=== PATIENT | male | born 1950 | race Two or more races ===

== ENCOUNTER 2018-08-25 15:33 | Inpatient (IN) | payer MEDICARE, MEDICAID ==
[~2018-08-25] VITALS: Ht 167.6 cm; Wt 54.0 kg
--- NOTE | 2018-08-25 23:40 | NUR ---
NURSE NOTES: Patient direct admit from [facility]. No s/s of distress noted. Alert and awake with confused. Skin is intact. Belongings are checked. Bed in lowest position. Call light within reach. Will continue to monitor.
[2018-08-26] VITALS: BP 126/66
--- NOTE | 2018-08-26 00:36 | NUR ---
NURSE NOTES: Call and paged Dr. Gonzales for new admit order. Waiting a call back.
--- NOTE | 2018-08-26 01:25 | NUR ---
NURSE NOTES: Call and paged Dr. Gonzales for new admit order. Waiting a call back.
--- NOTE | 2018-08-26 02:04 | NUR ---
NURSE NOTES: Call and paged Dr. Gonzales for new admit order. Waiting a call back.
[2018-08-26] MEDS ORDERED: FLEET ENEMA133 M1 RC (03:10)
[2018-08-26] MEDS ORDERED: MELATONIN5 M5 ORAL (03:10)
[2018-08-26] MEDS ORDERED: ACETAMINOPHEN325 M1 ORAL (03:10)
[2018-08-26] MEDS ORDERED: CALCIUM 500 +1 EAC6 PO (03:10)
[2018-08-26] MEDS ORDERED: MILK OF MA400 MG/51 ORAL (03:10)
[2018-08-26] MEDS ORDERED: MOM30 ML ORAL (03:10)
[2018-08-26] MEDS ORDERED: CLARITIN10 M2 ORAL (03:10)
[2018-08-26] MEDS ORDERED: MULTIVITAMINS1 EAC2 ORAL (03:10)
[2018-08-26] MEDS ORDERED: ATORVASTATIN CA10 MG ORAL (03:10)
[2018-08-26] MEDS ORDERED: DULCOLAX10 MG RC (03:10)
[2018-08-26] MEDS ORDERED: CALCITRIOL0.25 MCG PO (03:10)
[2018-08-26] MEDS ORDERED: ASPIRIN-LOW81 MG ORAL (03:10)
[2018-08-26 04:00] VITALS: BP 137/73
--- NOTE | 2018-08-26 05:54 | NUR ---
NURSE NOTES: Call and paged Dr. Gonzales for new admit order. Waiting a call back.
--- NOTE | 2018-08-26 06:36 | NUR ---
NURSE NOTES: Call and paged Dr. Gonzales for new admit order. Waiting a call back.
--- NOTE | 2018-08-26 07:00 | NUR ---
NURSE NOTES: Call and paged Dr. Gonzales for new admit order. Waiting a call back.
--- NOTE | 2018-08-26 07:30 | NUR ---
HAND-OFF: Report given to Douglas Ford.
--- NOTE | 2018-08-26 07:45 | NUR ---
NURSE NOTES: Patient on bed awake. IV site intact and patent. Bed in low and locked position, call light within reach. No signs of respiratory distress or pain. Room board updated, will continue to monitor.
[2018-08-26 08:00] VITALS: BP 153/79
[2018-08-26] MEDS ORDERED: Fleet's Enema 133ml RECTAL PRN (08:15)
[2018-08-26] MEDS ORDERED: Milk of Magnesia 30ml Ud ORAL PRN (08:15)
[2018-08-26 08:28] LABS: BASOPHILS % (AUTO) 0.8 % (0.0-2.0); EOSINOPHILS % (AUTO) 3.2 % (0.0-3.0); HEMATOCRIT 37.9 % (42.0-52.0); HEMOGLOBIN 12.3 G/DL (14.2-18.0); LYMPHOCYTES % (AUTO) 28.2 % (20.0-45.0); MEAN CORPUSCULAR VOLUME 86 FL (80-99); MONOCYTES % (AUTO) 9.9 % (1.0-10.0); NEUTROPHILS % (AUTO) 57.9 % (45.0-75.0); PLATELET COUNT 199 K/UL (150-450); RED BLOOD COUNT 4.38 M/UL (4.70-6.10); RED CELL DISTRIBUTION WIDTH 13.1 % (11.6-14.8); WHITE BLOOD COUNT 4.6 K/UL (4.8-10.8)
[2018-08-26] MEDS: D5 1/2NS 1,000 ML IV SCH ×2 (08:33→20:25)
[2018-08-26 08:37] LABS: ANION GAP 8 mmol/L (5-15); BLOOD UREA NITROGEN 16 mg/dL (7-18); CALCIUM 7.6 MG/DL (8.5-10.1); CARBON DIOXIDE 31 MMOL/L (21-32); CHLORIDE 101 MMOL/L (98-107); POTASSIUM 3.7 MMOL/L (3.5-5.1); SODIUM 140 MMOL/L (136-145)
[2018-08-26 08:41] LABS: ALANINE AMINOTRANSFERASE 21 U/L (12-78); ALBUMIN 3.8 G/DL (3.4-5.0); ALBUMIN/GLOBULIN RATIO 1.1 (1.0-2.7); ALKALINE PHOSPHATASE 66 U/L (46-116); ASPARTATE AMINO TRANSFERASE 23 U/L (15-37); BILIRUBIN,TOTAL 0.6 MG/DL (0.2-1.0)
[2018-08-26] MEDS: cefTRIAXone 1 GM in D5W 55 ML IVPB SCH (08:54)
[2018-08-26] MEDS: Calcitriol 0.25mcg Cap ORAL SCH (08:54)
[2018-08-26] MEDS: Aspirin EC 81mg tab ORAL SCH (08:54)
[2018-08-26] MEDS: Calcium Carbonate 500mg w/Vit D 200iu tab ORAL SCH ×3 (08:54→18:27)
[2018-08-26] MEDS: Heparin 5000 units/ml inj SUBQ SCH ×2 (08:55→20:27)
--- NOTE | 2018-08-26 10:29 | NUR ---
RADIOLOGY DEPT CHEST X-RAY DONE.-P.DYE
[2018-08-26 12:00] VITALS: BP 124/67
--- NOTE | 2018-08-26 13:00 | NUR ---
NURSE NOTES: Condom catheter placed on patient. Charge nurse aware.
[2018-08-26 14:31] LABS: BILIRUBIN, URINE NEGATIVE (NEGATIVE); COLOR,URINE PALE YELLOW; GLUCOSE, URINE (UA) NEGATIVE (NEGATIVE); KETONES,URINE NEGATIVE (NEGATIVE); LEUKOCYTE ESTERASE ,URINE 1+ (NEGATIVE); NITRITE,URINE NEGATIVE (NEGATIVE); PH,URINE 8 (4.5-8.0); PROTEIN,URINE NEGATIVE (NEGATIVE); UROBILINOGEN,URINE NORMAL MG/DL (0.0-1.0)
[2018-08-26 14:35] LABS: APPEARANCE,URINE SLIGHTLY CLOUDY
[2018-08-26 16:00] VITALS: BP 153/72
--- NOTE | 2018-08-26 16:15 | History and Physical Report ---
DATE OF ADMISSION: 08/25/2018 HISTORY OF PRESENT ILLNESS: This is an elderly male, who came to the emergency room for altered mental status. He is mild short of breath and generalized weakness. The patient is slightly confused, also was found to have elevated ammonia level. PAST MEDICAL HISTORY: Significant for history of coronary artery disease, hypertension, and hyperlipidemia. MEDICATIONS: See the list. ALLERGIES: NKA. FAMILY HISTORY: Noncontributory. SOCIAL HISTORY: The patient lives at a snf, confused but he is able to move. PHYSICAL EXAMINATION: VITAL SIGNS: Blood pressure is 137/73, pulse 63, respirations 19, and temperature 98.2. HEENT: NAD. CHEST: Bilaterally clear. CARDIOVASCULAR: Regular rhythm. No gallop. No murmur. ABDOMEN: Soft. Positive bowel sounds. Nontender. EXTREMITIES: No CCE. NEUROLOGICAL: Confused, generalized weakness. GENITOURINARY: Deferred. LABORATORY DATA: White count 4.6, hemoglobin 12, and hematocrit 39. Platelets are normal. Chemistry panel, glucose 112. Sodium 140, potassium 3.7, BUN 16, and creatinine . ASSESSMENT: 1. Altered mental status. 2. Hepatic encephalopathy. 3. Dementia. 4. Urinary incontinency, possible urinary tract infection. PLAN: 1. We will check UA with culture. 2. We will check ammonia level. 3. Continue IV fluid. 4. Continue current home medications and discussed with the charge nurse. 5. Consider also GI consult. Sandeep Gonzales M.D. DR: DANIAL JOB#: [id number] CC:
--- NOTE | 2018-08-26 16:46 | NUR ---
CASE MANAGEMENT:REVIEW DIRECT ADMIT FROM [facility] CC: AMS SI: HEPATIC ENCEPHALOPATHY 98.1 62 17 126/66 97% ON RA AMMONIA+39 IS: LIPITOR PO QHS HEPARIN SQ Q12 IV ROCEPHIN Q24 ASA PO QD CALCITROL PO QD KARTIK CARBONATE PO QD MVI PO QD IVF@75/HR : MED/SURG STATUS 4 EAST
--- NOTE | 2018-08-26 17:00 | NUR ---
NURSE NOTES: Patient removed IV and attempted to get out of bed. Patient placed back in bed, will attempt to start new IV site.
[2018-08-26] MEDS ORDERED: DiphenhydrAMINE 50mg/ml Inj IM SCH (17:19)
[2018-08-26] MEDS ORDERED: LORazepam Inj 2mg/ml 1ml IM SCH (17:30)
[2018-08-26] MEDS ORDERED: Haloperidol 5mg/ml Inj IM SCH (17:30)
--- NOTE | 2018-08-26 17:30 | Diagnostic Imaging Report ---
Indication: Cough Technique: One view of the chest Comparison: none Findings: Metallic foreign body projects over the upper mediastinum. The lungs and pleural spaces are clear. The heart size is normal. Impression: No acute process Metallic foreign body projecting over the upper mediastinum. Uncertain as to whether postsurgical in nature versus outside the body
--- NOTE | 2018-08-26 18:55 | General Progress Note ---
Assessment/Plan Assessment/Plan Assessment - Patient with dysarthria and apparent movement disorder - pattern of neurologic symptoms not suggestive of hepatic encephalopathy - mild elevation in ammonia non-specific Recommendations - Would ask neurology to evaluate - check swallow study - follow exam and mental status Thank you Nataly Francois MD Subjective Allergies: Coded Allergies: No Known Allergies (Unverified , 08/26/18) Objective Last 24 Hour Vital Signs Date Time Temp Pulse Resp B/P (MAP) Pulse Ox O2 Delivery O2 Flow Rate FiO2 08/26/18 16:00 97.7 64 18 153/72 (99) 96 08/26/18 12:00 98.4 57 18 124/67 (86) 96 08/26/18 09:00 Room Air 08/26/18 08:00 98.0 63 18 153/79 (103) 96 08/26/18 04:00 98.2 63 19 137/73 (94) 98 08/26/18 01:36 Room Air 08/26/18 00:00 98.1 62 17 126/66 (86) 97 Intake and Output 08/25/18 08/26/18 18:59 06:59 # Voids 2 Laboratory Tests 08/26/18 08:15: White Blood Count 4.6L, Red Blood Count 4.38L, Hemoglobin 12.3L, Hematocrit 37.9L, Mean Corpuscular Volume 86, Mean Corpuscular Hemoglobin 28.1, Mean Corpuscular Hemoglobin Concent 32.5, Red Cell Distribution Width 13.1, Platelet Count 199, Mean Platelet Volume 8.2, Neutrophils (%) (Auto) 57.9, Lymphocytes (% ) (Auto) 28.2, Monocytes (%) (Auto) 9.9, Eosinophils (%) (Auto) 3.2H, Basophils (%) (Auto) 0.8, Sodium Level 140, Potassium Level 3.7, Chloride Level 101, Carbon Dioxide Level 31, Anion Gap 8, Blood Urea Nitrogen 16, Creatinine 1.0, Estimat Glomerular Filtration Rate > 60, Glucose Level 112H, Calcium Level 7.6L , Total Bilirubin 0.6, Aspartate Amino Transf (AST/SGOT) 23, Alanine Aminotransferase (ALT/SGPT) 21, Alkaline Phosphatase 66, Total Protein 7.4, Albumin 3.8, Globulin 3.6, Albumin/Globulin Ratio 1.1 08/26/18 11:00: Ammonia 39H 08/26/18 13:30: Urine Color Pale yellow, Urine Appearance Slightly cloudy, Urine pH 8, Urine Specific [place] 1.010, Urine Protein Negative, Urine Glucose (UA) Negative, Urine Ketones Negative, Urine Blood 5+H, Urine Nitrite Negative, Urine Bilirubin Negative, Urine Urobilinogen Normal, Urine Leukocyte Esterase 1+H, Urine RBC 40-60H, Urine WBC 0-2, Urine Squamous Epithelial Cells Occasional, Urine Bacteria Occasional Height (Feet): 5 Height (Inches): 6.00 Weight (Pounds): 119 Genesis Francois MD Aug 26, 2018 18:55
--- NOTE | 2018-08-26 19:35 | NUR ---
HAND-OFF: Report given to KAMLA Lott.
--- NOTE | 2018-08-26 19:55 | NUR ---
NURSE NOTES: Patient in bed asleep, no s/s distress noted. Bed in lowest position for safety. Call light within reach.
[2018-08-26 20:00] VITALS: BP 142/76
--- NOTE | 2018-08-26 21:44 | Consultation ---
History of Present Illness Present Illness HPI 67 yo old male, with hx of mmp who came to the emergency room for altered mental status. He came in with shortness of breath and generalized weakness. The patient was confused confused and agitated the pt pulled out his IV access and came out of the bed. the pt was agitated and yelling that he wanted to leave. The pt was confused and received a cocktail shot. The pt has high ammonia level and is unable to provide any hx. Allergies: Coded Allergies: No Known Allergies (Unverified , 08/26/18) Medication History Scheduled Aspirin (Aspirin EC), 81 MG ORAL DAILY, (Reported) Atorvastatin Calcium* (Lipitor*), 10 MG ORAL BEDTIME, (Reported) Calcitriol (Calcitriol), 0.25 MCG PO DAILY, (Reported) Calcium Carbonate/Vitamin D3 (Calcium 500 + Vit D 200 Caplet), 1 EACH PO THREE TIMES A DAY, (Reported) Loratadine (Claritin), 10 MG ORAL Q6HR, (Reported) Magnesium Hydroxide (Milk of Magnesia), 30 ML ORAL DAILY, (Reported) Magnesium Hydroxide* (Milk Of Magnesia*), 30 ML ORAL DAILY, (Reported) Multivitamins* (Multivitamins*), 1 TAB ORAL DAILY, (Reported) Scheduled PRN Acetaminophen* (Acetaminophen 325MG Tablet*), 650 MG ORAL Q4H PRN for Mild Pain/ Temp > 100.5, (Reported) Melatonin (Melatonin), 5 MG ORAL BEDTIME PRN for Insomnia, (Reported) Miscellaneous Medications Bisacodyl (Dulcolax), 10 MG RC, (Reported) Na Phos,M-B/Na Phos,Di-Ba (Fleet Enema), 133 ML RC, (Reported) Patient History Limited by: medical condition History Provided By: Patient, Medical Record, PMD Healthcare decision maker Anel Salazar(sister) [phone] Resuscitation status Do Not Resuscitate Advanced Directive on File No Past Medical/Surgical History Past Medical/Surgical History: (1) Increased ammonia level Review of Systems Psychiatric: Reports: anxiety, depressed feelings, emotional problems, hallucinations Physical Exam General Appearance: alert, confused, agitated Last 24 Hour Vital Signs Date Time Temp Pulse Resp B/P (MAP) Pulse Ox O2 Delivery O2 Flow Rate FiO2 08/26/18 21:00 Room Air 08/26/18 20:00 98.9 66 19 142/76 (98) 99 08/26/18 16:00 97.7 64 18 153/72 (99) 96 08/26/18 12:00 98.4 57 18 124/67 (86) 96 08/26/18 09:00 Room Air 08/26/18 08:00 98.0 63 18 153/79 (103) 96 08/26/18 04:00 98.2 63 19 137/73 (94) 98 08/26/18 01:36 Room Air 08/26/18 00:00 98.1 62 17 126/66 (86) 97 Intake and Output 08/25/18 08/26/18 19:00 07:00 # Voids 2 Laboratory Tests Test 08/26/18 08:15 08/26/18 11:00 08/26/18 13:30 White Blood Count 4.6 K/UL (4.8-10.8) L Red Blood Count 4.38 M/UL (4.70-6.10) L Hemoglobin 12.3 G/DL (14.2-18.0) L Hematocrit 37.9 % (42.0-52.0) L Mean Corpuscular Volume 86 FL (80-99) Mean Corpuscular Hemoglobin 28.1 PG (27.0-31.0) Mean Corpuscular Hemoglobin Concent 32.5 G/DL (32.0-36.0) Red Cell Distribution Width 13.1 % (11.6-14.8) Platelet Count 199 K/UL (150-450) Mean Platelet Volume 8.2 FL (6.5-10.1) Neutrophils (%) (Auto) 57.9 % (45.0-75.0) Lymphocytes (%) (Auto) 28.2 % (20.0-45.0) Monocytes (%) (Auto) 9.9 % (1.0-10.0) Eosinophils (%) (Auto) 3.2 % (0.0-3.0) H Basophils (%) (Auto) 0.8 % (0.0-2.0) Sodium Level 140 MMOL/L (136-145) Potassium Level 3.7 MMOL/L (3.5-5.1) Chloride Level 101 MMOL/L (98-107) Carbon Dioxide Level 31 MMOL/L (21-32) Anion Gap 8 mmol/L (5-15) Blood Urea Nitrogen 16 mg/dL (7-18) Creatinine 1.0 MG/DL (0.55-1.30) Estimat Glomerular Filtration Rate > 60 mL/min (>60) Glucose Level 112 MG/DL (74-106) H Calcium Level 7.6 MG/DL (8.5-10.1) L Total Bilirubin 0.6 MG/DL (0.2-1.0) Aspartate Amino Transf (AST/SGOT) 23 U/L (15-37) Alanine Aminotransferase (ALT/SGPT) 21 U/L (12-78) Alkaline Phosphatase 66 U/L (46-116) Total Protein 7.4 G/DL (6.4-8.2) Albumin 3.8 G/DL (3.4-5.0) Globulin 3.6 g/dL Albumin/Globulin Ratio 1.1 (1.0-2.7) Ammonia 39 umol/L (11-32) H Urine Color Pale yellow Urine Appearance Slightly cloudy Urine pH 8 (4.5-8.0) Urine Specific [place] 1.010 (1.005-1.035) Urine Protein Negative (NEGATIVE) Urine Glucose (UA) Negative (NEGATIVE) Urine Ketones Negative (NEGATIVE) Urine Blood 5+ (NEGATIVE) H Urine Nitrite Negative (NEGATIVE) Urine Bilirubin Negative (NEGATIVE) Urine Urobilinogen Normal MG/DL (0.0-1.0) Urine Leukocyte Esterase 1+ (NEGATIVE) H Urine RBC 40-60 /HPF (0 - 0) H Urine WBC 0-2 /HPF (0 - 0) Urine Squamous Epithelial Cells Occasional /LPF Urine Bacteria Occasional /HPF (NONE) Microbiology Date/Time Source Procedure Growth Status 08/26/18 03:10 Rectum Received Height (Feet): 5 Height (Inches): 6.00 Weight (Pounds): 119 Medications Current Medications Medications (Trade) Dose Ordered Sig/Luca Route PRN Reason Start Time Stop Time Status Last Admin Dose Admin Acetaminophen (Tylenol) 650 mg Q4H PRN ORAL Mild Pain/Temp > 100.5 08/26/18 08:15 09/25/18 08:14 Aspirin (Ecotrin) 81 mg DAILY ORAL 08/26/18 09:00 09/25/18 08:59 08/26/18 08:54 Atorvastatin Calcium (Lipitor) 10 mg BEDTIME ORAL 08/26/18 21:00 09/25/18 20:59 08/26/18 20:25 Bisacodyl (Dulcolax) 10 mg NEEDED PRN RECTAL Constipation 08/26/18 08:15 09/25/18 08:14 Calcitriol (Rocatrol) 0.25 mcg DAILY ORAL 08/26/18 09:00 09/25/18 08:59 08/26/18 08:54 Calcium Carbonate (OsCal D) 1 tab THREE TIMES A DAY ORAL 08/26/18 09:00 09/25/18 08:59 08/26/18 18:27 Ceftriaxone Sodium 1 gm/ Dextrose 55 ml @ 110 mls/hr Q24H IVPB 08/26/18 09:00 09/02/18 08:59 08/26/18 08:54 Dextrose/Sodium Chloride 1,000 ml @ 75 mls/hr [id number] IV 08/26/18 07:30 09/25/18 07:29 08/26/18 20:25 Heparin Sodium (Porcine) (Heparin 5000 units/ml) 5,000 units EVERY 12 HOURS SUBQ 08/26/18 09:00 09/25/18 08:59 08/26/18 20:27 Magnesium Hydroxide (Mom) 30 ml DAILY PRN ORAL Constipation 08/26/18 08:15 09/25/18 08:14 Multivitamins (Multivitamins) 1 tab DAILY ORAL 08/26/18 09:00 09/25/18 08:59 08/26/18 08:54 Sodium Phosphate (Fleet's Sodium Phosl Enema) 133 ml NEEDED PRN RECTAL Constipation 08/26/18 08:15 09/25/18 08:14 Assessment/Plan Problem List: (1) Metabolic encephalopathy ICD Codes: G93.41 - Metabolic encephalopathy SNOMED: [id number] Assessment/Plan Haldol Im 5mg q 6hr prn received a cocktail the pt lacks capacity and may not leave [facility]. Kelby Flores MD Aug 26, 2018 21:44
--- NOTE | 2018-08-26 22:45 | Consultation ---
DATE OF CONSULTATION: 08/26/2018 GASTROENTEROLOGY CONSULTATION CONSULTING PHYSICIAN: Genesis Francois M.D. REFERRING PHYSICIAN: Michael Gonzales M.D. CHIEF COMPLAINT: I was asked to see this patient by Dr. Michael Gonzales for evaluation of altered mental status. HISTORY OF PRESENT ILLNESS: The patient is a 67-year-old man, who was brought in to the emergency room due to altered mental status. He appeared to have shortness of breath and generalized weakness. He also appeared to be confused and had mildly elevated ammonia level and therefore, this consultation was generated. There is no chart history of liver disease, alcoholism, or hepatic encephalopathy. During my interview, the patient appeared to be awake and responsive, although he had clear evidence of dysarthria and motion disorder that was mild. His words were strained although he was able to these in the hospital, however, his nature of speech was consistent with functional neurological deficits. PAST MEDICAL HISTORY: History of coronary artery disease, hypertension, hyperlipidemia. MEDICATIONS: See the chart list for details. ALLERGIES: None. FAMILY HISTORY: Noncontributory. SOCIAL HISTORY: The patient [facility] in a jail. There is no chart report of smoking or drinking. REVIEW OF SYSTEMS: Otherwise negative. PHYSICAL EXAMINATION: GENERAL: Debilitated man, seen in his room. HEENT: Normocephalic and atraumatic. Dentition is poor. NECK: Supple. CHEST: Clear to auscultation. CARDIOVASCULAR: Revealed regular rate. ABDOMEN: Soft. EXTREMITIES: No edema. NEUROLOGIC: Normal for definite speech dysarthria and straining of words. LABORATORY DATA: Noted. ASSESSMENT: This patient's neurological behavior is consistent with a type of dysarthria or neurological deficits, it is unclear to me, however, it does not fall in the pattern of hepatic encephalopathy. This generally may involve depressed sensorium. In that regard, I would suggest obtaining neurological consultation and going in for neurological workup with respect to the findings. This can include CT scan of the head to evaluate the patient for a kind of stroke or stroke-like disorder. RECOMMENDATIONS: 1. Neurological consultation. 2. CT scan of the head. 3. Follow mental status. 4. Mild elevation in ammonia is nonspecific and not diagnostic of hepatic encephalopathy at this time. Thank you for asking me to participate in the care of this patient. Genesis Francois M.D. DR: Aneta JOB#: [id number] CC:
[2018-08-27] VITALS: BP 142/70
[2018-08-27 04:00] VITALS: BP 139/66
--- NOTE | 2018-08-27 07:28 | NUR ---
HAND-OFF: Report given to Zeny CASON.
--- NOTE | 2018-08-27 07:50 | NUR ---
NURSE NOTES: received patient on bed awake. IVF patent and infusing well, No signs of respiratory distress or pain,on fall precaution observed and maintained .Bed in low and locked position, call light within reach. Room board updated, will continue to monitor theo huerta
[2018-08-27 08:00] VITALS: BP 158/85
[2018-08-27] MEDS: cefTRIAXone 1 GM in D5W 55 ML IVPB SCH (08:34)
[2018-08-27] MEDS: Aspirin EC 81mg tab ORAL SCH (08:35)
[2018-08-27] MEDS: Calcitriol 0.25mcg Cap ORAL SCH (08:35)
[2018-08-27] MEDS: Calcium Carbonate 500mg w/Vit D 200iu tab ORAL SCH ×3 (08:35→17:04)
[2018-08-27] MEDS: Heparin 5000 units/ml inj SUBQ SCH ×2 (08:41→20:26)
[2018-08-27] MEDS: D5 1/2NS 1,000 ML IV SCH (10:28)
[2018-08-27] MEDS: Haloperidol 5mg/ml Inj IM PRN (11:33)
--- NOTE | 2018-08-27 12:05 | NUR ---
nurse notes CT head not done patient uncooperative left message to answering service awaiting for his call, per technical administrator patient needs medication theo huerta
[2018-08-27 12:11] VITALS: BP 150/69
[2018-08-27 16:00] VITALS: BP 106/82
--- NOTE | 2018-08-27 18:54 | NUR ---
HAND-OFF: Report given to Ms Oren RN Resting comfortably no sign of distress. theo huerta
--- NOTE | 2018-08-27 19:30 | NUR ---
NURSE NOTES: Received patient awake, watching tv, with no signs of acute distress. Denies pain. Iv site left wrist running D5 1/2 NS at 75 ml/hr. 3 side rails up, bed on lowest position, call light within reach.
--- NOTE | 2018-08-27 19:36 | General Progress Note ---
Assessment/Plan Assessment/Plan Assessment - Patient with dysarthria and apparent movement disorder - pattern of neurologic symptoms not suggestive of hepatic encephalopathy - mild elevation in ammonia non-specific Recommendations - Consider neurology eval - follow exam and mental status Subjective Allergies: Coded Allergies: No Known Allergies (Unverified , 08/26/18) Subjective awake responsive dysarthric speech unable to stay still for head CT Objective Last 24 Hour Vital Signs Date Time Temp Pulse Resp B/P (MAP) Pulse Ox O2 Delivery O2 Flow Rate FiO2 08/27/18 16:00 97.1 75 19 106/82 (90) 97 08/27/18 12:11 97.6 73 18 150/69 (96) 97 08/27/18 08:00 Room Air 08/27/18 08:00 97.7 86 19 158/85 (109) 97 08/27/18 04:00 98.8 62 17 139/66 (90) 98 08/27/18 00:00 98.2 62 18 142/70 (94) 97 08/26/18 21:00 Room Air 08/26/18 20:00 98.9 66 19 142/76 (98) 99 Intake and Output 08/26/18 08/27/18 18:59 06:59 Intake Total 1060 ml 840 ml Balance 1060 ml 840 ml Intake Oral 480 ml 120 ml IV Total 580 ml 720 ml # Voids 6 3 # Bowel Movements 1 Height (Feet): 5 Height (Inches): 6.00 Weight (Pounds): 119 Objective WDWN NCAT supple CTA RRR abd soft no edema choraform head and neck motions Genesis Francois MD Aug 27, 2018 19:36
[2018-08-27 20:00] VITALS: BP 151/70
[2018-08-28] VITALS: BP 140/74
[2018-08-28] MEDS: D5 1/2NS 1,000 ML IV SCH ×3 (00:07→23:55)
[2018-08-28] MEDS: Haloperidol 5mg/ml Inj IM PRN (00:40)
[2018-08-28 04:00] VITALS: BP 138/73
--- NOTE | 2018-08-28 07:13 | NUR ---
HAND-OFF: Report given to KAMLA Cole.
--- NOTE | 2018-08-28 07:45 | NUR ---
NURSE NOTES: Received patient on bed, asleep. IV site intact and patent. Patient is incontinent. Bed in low and locked position, call light within reach. No signs of respiratory distress or pain. Will continue to monitor.
[2018-08-28 08:00] VITALS: BP 153/83
[2018-08-28] MEDS: Calcitriol 0.25mcg Cap ORAL SCH (09:08)
[2018-08-28] MEDS: Aspirin EC 81mg tab ORAL SCH (09:08)
[2018-08-28] MEDS: Calcium Carbonate 500mg w/Vit D 200iu tab ORAL SCH ×3 (09:08→18:08)
[2018-08-28] MEDS: Heparin 5000 units/ml inj SUBQ SCH ×2 (09:09→20:06)
[2018-08-28] MEDS: cefTRIAXone 1 GM in D5W 55 ML IVPB SCH (09:14)
[2018-08-28] MEDS ORDERED: D5 1/2NS 1000ml IV ONE ×2 (10:21)
[2018-08-28] MEDS ORDERED: Tubing IV Secondary IV ONE (10:21)
--- NOTE | 2018-08-28 11:07 | NUR ---
NURSE NOTES: Patient off floor for procedure.
--- NOTE | 2018-08-28 11:26 | NUR ---
NURSE NOTES: Patient back on floor.
[2018-08-28 12:00] VITALS: BP 142/67
--- NOTE | 2018-08-28 12:02 | Diagnostic Imaging Report ---
EXAM: CT Head Without Intravenous Contrast CLINICAL HISTORY: AMS TECHNIQUE: Axial computed tomography images of the head/brain without intravenous contrast. CTDI is 70.53 mGy and DLP is 1312 mGy-cm. One or more of the following dose reduction techniques were used: automated exposure control, adjustment of the mA and/or kV according to patient size, use of iterative reconstruction technique. COMPARISON: No relevant prior studies available. FINDINGS: Brain: Diffuse symmetric parenchymal calcifications in the basal ganglia, centrum semiovale, and cerebellum bilaterally. No evidence of mass effect, midline shift, or cerebral herniations. Subcentimeter hypodensities in bilateral basal ganglia may represent remote lacunar infarcts. No evidence of extra-axial or intraventricular hemorrhage or fluid collection. Ventricles: Mild symmetric prominence of the lateral and third ventricles, likely compensatory to mild generalized cerebral atrophy. Bones/joints: Unremarkable. No depressed skull fracture. Soft tissues: Unremarkable. Sinuses: Unremarkable as visualized. No acute sinusitis. Mastoid air cells: Unremarkable as visualized. No mastoid effusion. IMPRESSION: 1. Diffuse symmetric parenchymal calcifications in the basal ganglia, centrum semiovale, and cerebellum bilaterally. This is nonspecific and may suggest underlying metabolic disorders with hypercalcemic states such as hypothyroidism, or rare conditions such as Fahr disease. 2. No evidence of mass effect, midline shift, or cerebral herniations. 3. Subcentimeter hypodensities in bilateral basal ganglia may represent remote lacunar infarcts. 4. Mild symmetric prominence of the lateral and third ventricles, likely compensatory to mild generalized cerebral atrophy.
--- NOTE | 2018-08-28 15:30 | Progress Note ---
DATE: 08/28/2018 SUBJECTIVE: This is an elderly 67-year-old male, currently , slightly confused, but improving. OBJECTIVE: VITAL SIGNS: Blood pressure 138/73, pulse 86. No fever. CHEST: Bilaterally clear. CARDIOVASCULAR: Regular rhythm. ABDOMEN: Soft. EXTREMITIES: No CCE. NEUROLOGICAL: Generalized weakness. ASSESSMENT: 1. AMS. 2. UTI. 3. Dehydration. 4. Encephalopathy. PLAN: We will continue current treatment. Discontinue IV fluid. PT and OT. Discharge plan to detention facility on Thursday. Sandeep Gonzales M.D. DR: Kimberlee JOB#: [id number] CC:
[2018-08-28 16:00] VITALS: BP 144/73
--- NOTE | 2018-08-28 16:15 | NUR ---
NURSE NOTES: Patient removed his IV. Will attempt to start a new IV site.
--- NOTE | 2018-08-28 16:41 | NUR ---
CHARGE NURSE NOTE: Spoke with , notified him about abnormal ct scan of the head.
--- NOTE | 2018-08-28 18:17 | NUR ---
NURSE NOTES: New IV started on right forearm 24 gauge intact, patent and asymptomatic. IV started on left hand 22 gauge. Intact, patent and asymptomatic.
--- NOTE | 2018-08-28 19:29 | NUR ---
HAND-OFF: Report given to KAMLA Patterson.
[2018-08-28 20:00] VITALS: BP 155/57
--- NOTE | 2018-08-28 20:00 | NUR ---
NURSE NOTES: Patient received in bed, awake, disoriented, nonverbal. IV is intact and patent, wrapped in Kerlix for safety. IVF infusing. Bed locked in low position, bed alarm on. Will continue to monitor.
--- NOTE | 2018-08-28 20:30 | General Progress Note ---
Assessment/Plan Assessment/Plan Assessment - Patient with dysarthria and apparent movement disorder - pattern of neurologic symptoms not suggestive of hepatic encephalopathy - mild elevation in ammonia non-specific Recommendations - Consider neurology eval - follow exam and mental status Subjective Allergies: Coded Allergies: No Known Allergies (Unverified , 08/26/18) Subjective awake responsive dysarthric speech follows commands Objective Last 24 Hour Vital Signs Date Time Temp Pulse Resp B/P (MAP) Pulse Ox O2 Delivery O2 Flow Rate FiO2 08/28/18 16:00 98.1 77 19 144/73 (96) 97 08/28/18 12:00 98.1 52 20 142/67 (92) 99 08/28/18 09:00 Room Air 08/28/18 08:00 97.6 87 19 153/83 (106) 97 08/28/18 04:00 97.4 86 18 138/73 (94) 95 08/28/18 00:00 98.5 68 18 140/74 (96) 98 08/27/18 21:00 Room Air Intake and Output 08/27/18 08/28/18 18:59 06:59 Intake Total 1380 ml 645 ml Balance 1380 ml 645 ml Intake Oral 480 ml 120 ml IV Total 900 ml 525 ml # Voids 4 3 Laboratory Tests 08/28/18 17:45: Thyroid Stimulating Hormone (TSH) 1.067 Height (Feet): 5 Height (Inches): 6.00 Weight (Pounds): 119 Objective WDWN NCAT supple CTA RRR abd soft no edema choraform head and neck motions Genesis Francois MD Aug 28, 2018 20:30
[2018-08-29] VITALS: BP 140/87
[2018-08-29 04:00] VITALS: BP 158/84
--- NOTE | 2018-08-29 07:29 | NUR ---
HAND-OFF: Report given to Yee CASON.
[2018-08-29] MEDS: cefTRIAXone 1 GM in D5W 55 ML IVPB SCH (08:41)
[2018-08-29] MEDS: Heparin 5000 units/ml inj SUBQ SCH (08:44)
[2018-08-29] MEDS: Calcium Carbonate 500mg w/Vit D 200iu tab ORAL SCH ×3 (08:46→18:37)
[2018-08-29] MEDS: Aspirin EC 81mg tab ORAL SCH (08:46)
[2018-08-29] MEDS: Calcitriol 0.25mcg Cap ORAL SCH (08:46)
[2018-08-29 09:00] VITALS: BP 147/83
[2018-08-29 12:00] VITALS: BP 131/80
[2018-08-29] MEDS: D5 1/2NS 1,000 ML IV SCH (14:30)
[2018-08-29 16:00] VITALS: BP 163/79
--- NOTE | 2018-08-29 19:39 | NUR ---
NURSE NOTES: Received a report from KAMLA Fraire. Pt is in stable condition. AAOX1. No respiratory distress noted. On room air. No c/o pain/discomfort. IV access is patent and intact. Bed in lowest position. Bed alarm is on. Call light within reach. Will continue to monitor.
--- NOTE | 2018-08-29 19:44 | Progress Note ---
SUBJECTIVE: This is an elderly 67-year-old male, currently comfortable in the bed, no distress. OBJECTIVE: VITAL SIGNS: Stable. CHEST: Bilaterally clear. CARDIOVASCULAR: Regular rhythm. ABDOMEN: Soft. EXTREMITIES: CCE. ASSESSMENT: 1. Urinary tract infection. 2. Hepatic encephalopathy. 3. Altered mental status. 4. Generalized weakness. PLAN: Continue current treatment. His ammonia level is pending. Continue current medical treatment. Sandeep Gonzales M.D. DR: Sergo JOB#: [id number] CC:
--- NOTE | 2018-08-29 19:47 | NUR ---
HAND-OFF: Report given to KAMLA Danielson.
[2018-08-29 20:00] VITALS: BP 152/75
--- NOTE | 2018-08-29 20:04 | General Progress Note ---
Assessment/Plan Assessment/Plan Assessment - Patient with dysarthria and apparent movement disorder - pattern of neurologic symptoms not suggestive of hepatic encephalopathy - mild elevation in ammonia non-specific Recommendations - Consider neurology eval - follow exam and mental status Subjective Allergies: Coded Allergies: No Known Allergies (Unverified , 08/26/18) Subjective awake responsive dysarthric speech follows commands Objective Last 24 Hour Vital Signs Date Time Temp Pulse Resp B/P (MAP) Pulse Ox O2 Delivery O2 Flow Rate FiO2 08/29/18 16:00 97.6 77 18 163/79 (107) 96 08/29/18 12:00 98.1 70 18 131/80 (97) 97 08/29/18 09:00 97.9 72 19 147/83 (104) 98 08/29/18 09:00 Room Air 08/29/18 04:00 98.1 76 18 158/84 (108) 97 08/29/18 00:00 97.4 74 18 140/87 (104) 99 08/28/18 21:00 Room Air Intake and Output 08/28/18 08/29/18 19:00 07:00 Intake Total 1375 ml 900 ml Balance 1375 ml 900 ml Intake Oral 720 ml IV Total 655 ml 900 ml # Voids 3 3 # Bowel Movements 1 Height (Feet): 5 Height (Inches): 6.00 Weight (Pounds): 119 Objective WDWN NCAT supple CTA RRR abd soft no edema choraform head and neck motions Genesis Francois MD Aug 29, 2018 20:04
[2018-08-30] VITALS (7 sets, daily range): BP systolic 137–156; BP diastolic 63–92
[2018-08-30] MEDS: Heparin 5000 units/ml inj SUBQ SCH ×3 (00:13→21:14)
[2018-08-30] MEDS: D5 1/2NS 1,000 ML IV SCH ×2 (04:38→18:10)
--- NOTE | 2018-08-30 07:15 | NUR ---
HAND-OFF: Report given to KAMLA Fraire. Endorsed to follow up with Dr. Sprague for consultation for the pt.
--- NOTE | 2018-08-30 08:00 | NUR ---
NURSE NOTES: received patient in bed, with feet out of bed, dangling, and hands soiled with feces. Reoriented patient and cleaned patient along with PSYCHOLOGIST. IV access intact at RFA. Call light within easy reach, siderails upx3, bed locked at the lowest position and in bed alarm. Will continue to monitor patient and follow up with the plan of care.
[2018-08-30] MEDS: Aspirin EC 81mg tab ORAL SCH (08:04)
[2018-08-30] MEDS: Calcitriol 0.25mcg Cap ORAL SCH (08:04)
[2018-08-30] MEDS: Calcium Carbonate 500mg w/Vit D 200iu tab ORAL SCH ×3 (08:04→18:20)
[2018-08-30] MEDS: cefTRIAXone 1 GM in D5W 55 ML IVPB SCH (08:06)
--- NOTE | 2018-08-30 16:00 | Progress Note ---
DATE: 08/30/2018 SUBJECTIVE: The patient is currently in bed, confused. OBJECTIVE: VITAL SIGNS: Blood pressure 156/77, pulse 84, no fever. CHEST: Bilateral few crackles. CARDIOVASCULAR: Regular rhythm. No gallop. No murmur. ABDOMEN: Soft. EXTREMITIES: CCE. NEUROLOGICAL: No focal deficit. ASSESSMENT: 1. Altered mental status. 2. CVA. 3. Encephalopathy. 4. Generalized weakness. PLAN: Waiting for neuro consult. Continue current treatment. Sandeep Gonzales M.D. DR: RACHEL JOB#: [id number] CC:
--- NOTE | 2018-08-30 18:56 | NUR ---
NURSE NOTES: notified dr. Gonzales pt pulled out IV access and nurse was unable to restart IV after several attempts. has given order to stop IVF and DC pt back to SNF tomorrow in am.
--- NOTE | 2018-08-30 19:26 | NUR ---
HAND-OFF: Report given to KAMLA Friend.
--- NOTE | 2018-08-30 19:30 | NUR ---
NURSE NOTES: Received a report from KAMLA Fraire. Pt is in stable condition. Disoriented. No respiratory distress noted. On room air. No c/o pain/discomfort. No IV access, Dr. Gonzales is aware. Bed in lowest position. Bed alarm is on. Call light within reach. Will continue to monitor.
--- NOTE | 2018-08-30 20:08 | General Progress Note ---
Assessment/Plan Assessment/Plan Assessment - Patient with dysarthria and apparent movement disorder - pattern of neurologic symptoms not suggestive of hepatic encephalopathy - mild elevation in ammonia non-specific Recommendations - Await neurology eval - follow exam and mental status Subjective Allergies: Coded Allergies: No Known Allergies (Unverified , 08/26/18) Subjective arousable responsive dysarthric speech follows commands Objective Last 24 Hour Vital Signs Date Time Temp Pulse Resp B/P (MAP) Pulse Ox O2 Delivery O2 Flow Rate FiO2 08/30/18 20:00 97.9 94 18 155/92 (113) 97 08/30/18 16:00 97.6 79 19 138/83 (101) 96 08/30/18 12:00 98.6 72 20 140/72 (94) 95 08/30/18 09:00 Room Air 08/30/18 08:00 97.8 84 20 156/77 (103) 98 08/30/18 04:00 98.4 77 18 147/71 (96) 97 08/30/18 00:00 98.1 76 18 153/74 (100) 98 08/29/18 21:00 Room Air Intake and Output 08/29/18 08/30/18 19:00 07:00 Intake Total 1000 ml 1020 ml Balance 1000 ml 1020 ml Intake Oral 120 ml IV Total 900 ml Other 1000 ml # Voids 3 2 # Bowel Movements 1 Height (Feet): 5 Height (Inches): 6.00 Weight (Pounds): 119 Objective WDWN NCAT supple CTA RRR abd soft no edema choraform head and neck motions Genesis Francois MD Aug 30, 2018 20:08
[2018-08-31 04:00] VITALS: BP 139/65
--- NOTE | 2018-08-31 07:25 | NUR ---
HAND-OFF: Report given to KAMLA Baptiste. Pt is in stable condition.
--- NOTE | 2018-08-31 07:55 | NUR ---
NURSE NOTES: Received pt from KAMLA LINDO. Pt is orient x1. No SOB or acute respiratory distress noted. pt has intact iv access ELIO 24g HL . all needs attended, bed is locked and is in the lowest position, call light within easy reach. will continue to monitor.
[2018-08-31 08:00] VITALS: BP 143/80
[2018-08-31] MEDS: Calcitriol 0.25mcg Cap ORAL SCH (08:49)
[2018-08-31] MEDS: Aspirin EC 81mg tab ORAL SCH (08:49)
[2018-08-31] MEDS: Calcium Carbonate 500mg w/Vit D 200iu tab ORAL SCH (08:49)
[2018-08-31] MEDS: cefTRIAXone 1 GM in D5W 55 ML IVPB SCH (08:50)
--- NOTE | 2018-08-31 09:24 | NUR ---
*-* DISCHARGE PLANNING PATIENT HAS BEEN REFERRED BACK TO: [facility] P:[phone] F: [phone]
[2018-08-31] MEDS: Heparin 5000 units/ml inj SUBQ SCH (09:30)
--- NOTE | 2018-08-31 09:55 | NUR ---
NURSE NOTES: called Dr yo and he is aware pt hasn't been consult by Dr artis and if we can DC pt and Dr yo ordered to DC pt. all orders done and F/U. Will continue to monitor.
--- NOTE | 2018-08-31 10:30 | NUR ---
*-* DISCHARGE PLANNED PATIENT IS DISCHARGED BACK TO: [facility] ROOM[facility]-[address] [facility] T:[phone] FOR NURSE TO NURSE REPORT LIFELINE HAS BEEN ARRANGED FOR INSURANCE UNDERWRITING ASSISTANT [address] [id number]
[2018-08-31 12:00] VITALS: BP 124/64
--- NOTE | 2018-08-31 12:25 | NUR ---
NURSE NOTES: pt is stable, V/S stable. iv access DC. all discharge assessments and instructions done. given report to KAMLA TIDWELL in SNF. PT'S DAUGHTER MS MARTIN is aware about DC. Pt left hospital with accompany of ambulance personnel.
--- NOTE | 2018-08-31 21:45 | Progress Note ---
DATE: 08/31/2018 The patient is an elderly man, came with altered mental status, had hepatic encephalopathy, was treated with medical treatment. GI consult was obtained. The patient is clinically doing well. The patient is going to go back to [facility]. Follow up as outpatient. Sandeep Gonzales M.D. DR: DANNY JOB#: [id number] CC:
--- NOTE | 2018-08-31 22:13 | General Progress Note ---
Assessment/Plan Assessment/Plan Assessment - Patient with dysarthria and apparent movement disorder - pattern of neurologic symptoms not suggestive of hepatic encephalopathy - mild elevation in ammonia non-specific Recommendations - Await neurology eval - follow exam and mental status Subjective Allergies: Coded Allergies: No Known Allergies (Unverified , 08/26/18) Subjective arousable responsive dysarthric speech ate well per RN Objective Last 24 Hour Vital Signs Date Time Temp Pulse Resp B/P (MAP) Pulse Ox O2 Delivery O2 Flow Rate FiO2 08/31/18 12:00 97.3 69 18 124/64 (84) 99 08/31/18 09:00 Room Air 08/31/18 08:00 97.7 66 18 143/80 (101) 98 08/31/18 04:00 97.7 87 18 139/65 (89) 97 08/30/18 23:41 97.3 89 18 137/63 (87) 96 Intake and Output 08/30/18 08/31/18 19:00 07:00 Intake Total 480 ml 4 ml Balance 480 ml 4 ml Intake Oral 480 ml 4 ml # Voids 5 # Bowel Movements 1 Height (Feet): 5 Height (Inches): 6.00 Weight (Pounds): 119 Objective WDWN NCAT supple CTA RRR abd soft no edema choraform head and neck motions Genesis Francois MD Aug 31, 2018 22:13
--- NOTE | 2018-09-01 14:25 | Discharge Summary ---
Discharge Summary Discharge Summary _ DATE OF ADMISSION: 08/25/2018 DATE OF DISCHARGE: 08/31/2018 DISCHARGED BY: Dr. Gonzales REASON FOR ADMISSION: 57 years old male with past medical history of coronary artery disease, hypertension, hyperlipidemia, COPD, osteoarthritis, Alzheimer dementia, DNR/DNI status, presented with altered mental status and generalized weakness. Ammonia level was slightly elevated-39. WBC 4.6 hemoglobin 12.3. Urinalysis revealed evidence of hematuria , no apparent UTI. CXR showed no acute cardiopulmonary pathology. Patient was admitted for further evaluation and management. CONSULTANTS: GI specialist Dr. Anderson psychiatrist [facility] COURSE: Patient admitted to medical surgical floor. Patient started on IV hydration. GI a consult requested for elevated ammonia, possible hepatic encephalopathy. Per GI specialist , mild elevation in ammonia was nonspecific and nondiagnostic of hepatic encephalopathy. Neurological symptoms that patient experienced were not consistent with hepatic encephalopathy. Mild elevation in ammonia was nonspecific. Patient exhibited dysarthria and apparent movement disorder. GI specialist recommended CT scan of the head and follow-up with mental status. Subsequently CT scan of the head was done and revealed no evidence of mass- effect , midline shift or cerebral herniation. Noted diffuse symmetric parenchymal calcifications in the basal ganglia, centrum semiovale, and cerebellum bilaterally, possibly suggestive of underlying metabolic disorders with hypercalcemic states such as hypothyroidism, or rare conditions such as Fahr disease. Subcentimeter hypodensities in bilateral basal ganglia possibly representing remote lacunar infarcts. Mild symmetric prominence of the lateral and third ventricles, likely compensatory to mild generalized cerebral atrophy. SNF medications were continued. DVT prophylaxis provided. Anti-platelet therapy with aspirin and statin were continued. Bowel regimen instituted. Renal parameters and electrolytes were closely monitored and electrolytes were corrected as needed. Patient initially started on empiric antibiotic , however urine culture was negative, and antibiotics stopped. Psychiatrist seen and evaluated patient , and diagnosed patient with metabolic encephalopathy. Per psychiatrist, patient lacked capacity to make informed decisions and could not leave AGAINST MEDICAL ADVICE. Psychiatric medication regimen was optimized. Patient clinically stabilized and was ready for transfer back to senior care facility for continuation of care. Given DNR/DNI status, conservative medical management was recommended. FINAL DIAGNOSES: Metabolic encephalopathy Dysarthria Apparent movement disorder Cerebrovascular disease with history of cerebrovascular accident Mild elevation in ammonia DISCHARGE MEDICATIONS: See Medication Reconciliation list. DISCHARGE INSTRUCTIONS: Patient was discharged to the senior care facility. Follow up with medical doctor at the facility. I have been assigned to dictate discharge summary for this account. I was not involved in the patient's management. Ludmila Kingston NP Sep 01, 2018 14:25
== END 2018-08-31 12:51 | DRG 689 ==
LOC: 4E 23:13
DX: N39.0 Urinary tract infection, site not specified (principal); G93.41 Metabolic encephalopathy; G25.9 Extrapyramidal and movement disorder, unspecified; I25.10 Atherosclerotic heart disease of native coronary artery without angina pectoris; I10 Essential (primary) hypertension; R47.1 Dysarthria and anarthria; G30.9 Alzheimer's disease, unspecified; F02.80 Dementia in other diseases classified elsewhere, unspecified severity, without behavioral disturbance, psychotic disturbance, mood disturbance, and anxiety; E78.5 Hyperlipidemia, unspecified; Z66 Do not resuscitate; Z86.73 Personal history of transient ischemic attack (TIA), and cerebral infarction without residual deficits; J44.9 Chronic obstructive pulmonary disease, unspecified; M19.90 Unspecified osteoarthritis, unspecified site; E86.0 Dehydration
CPT/HCPCS: 36415; 70450; 71045; 80053; 81001; 82140; 84443; 85025; 87081; 87086

== ENCOUNTER 2019-12-17 00:47 | Inpatient (IN) | payer MEDICARE, MEDICAID ==
[2019-12-17] VITALS (8 sets, daily range): BP systolic 112–141; BP diastolic 58–117
[~2019-12-17] VITALS: Ht 175.3 cm; Wt 41.3 kg
[~2019-12-17 00:47] MED LIST: ACETAMINOPHEN325 M1 ORAL; ASPIRIN-LOW81 MG ORAL; ATORVASTATIN CA10 MG ORAL; CALCITRIOL0.25 MCG PO; CALCIUM 500 +1 EAC6 PO; CLARITIN10 M2 ORAL; DULCOLAX10 MG RC; FLEET ENEMA133 M1 RC; MELATONIN5 M5 ORAL; MILK OF MA400 MG/51 ORAL; MOM30 ML ORAL; MULTIVITAMINS1 EAC2 ORAL
--- NOTE | 2019-12-17 00:50 | NUR ---
ED Nurse Note: PT BROUGHT IN BY EMS FROM [facility] C/O GEN WEAKNESS. PT IS NONVERBAL, VSS, NONAMBULATORY, AAOX2. ERMD AT BEDSIDE. PT PLACED ON DROPLET PRECAUTION AND ON MASK. PT DOES NOT PRESENT WITH COUGH OR FEVER. DENIES PAIN.
--- NOTE | 2019-12-17 00:54 | NUR ---
ED Nurse Note: PER ERMD, PLACED YIN. TUBE PATENT AND DRAINING.
--- NOTE | 2019-12-17 00:55 | NUR ---
ED Nurse Note: BLOOD AND URINE COLLECTED AND SENT TO LAB.
--- NOTE | 2019-12-17 01:00 | NUR ---
ED Nurse Note: XR AT BEDSIDE
--- NOTE | 2019-12-17 01:05 | Emergency Room Report ---
History of Present Illness General Chief Complaint: Generalized Weakness Source: Medical Record Present Illness HPI Is a 69-year-old male who is a jail patient. He has a history of dementia, hypertension, CVA, COPD. He presents with chief complaint of generalized weakness and decreased appetite. Onset Thursday. No nausea no vomiting. No cough. No fever. Patient limited in his history because he is nonverbal. He is also a DNR with selective treatment. Allergies: Coded Allergies: No Known Allergies (Unverified , 08/26/18) COVID-19 Screening Contact w/high risk pt: Yes Recent Travel to affected area: No Experienced COVID-19 symptoms?: No Patient History Past Medical History: see triage record, old chart reviewed, HTN, pneumonia, dementia Past Surgical History: other Pertinent Family History: none Social History: Denies: smoking Immunizations: other Reviewed Nursing Documentation: PMH: Agreed; PSxH: Agreed Nursing Documentation-PMH Hx Hypertension: Yes Hx COPD: Yes Hx Cancer: No Hx Gastrointestinal Problems: No History Of Psychiatric Problem: Yes - schizophrenia Hx Cerebrovascular Accident: Yes Hx Alzheimer's Disease: Yes Hx Weakness: Yes - muscle weakness Review of Systems Constitutional: Reports: weakness Eye: Denies: eye pain, blurred vision ENT: Denies: ear pain, nose congestion, throat swelling Respiratory: Denies: cough, shortness of breath Cardiovascular: Denies: chest pain, palpitations Gastrointestinal: Denies: abdominal pain, diarrhea, nausea, vomiting Musculoskeletal: Denies: back pain, joint pain Skin: Denies: rash Neurological: Denies: headache, numbness Endocrine: Denies: increased thirst, increased urine Hematologic/Lymphatic: Denies: easy bruising All Other Systems: negative except mentioned in HPI Physical Exam Vital Signs Date Time Temp Pulse Resp B/P (MAP) Pulse Ox O2 Delivery O2 Flow Rate FiO2 12/17/19 00:48 98.4 63 18 112/66 (81) 97 Room Air Vitals normal Sp02 EP Interpretation: reviewed, normal General Appearance: well appearing, no apparent distress, alert Head: normocephalic, atraumatic Eyes: bilateral eye PERRL, bilateral eye EOMI ENT: hearing grossly normal, dry mucus membranes Neck: full range of motion, supple, no meningismus Respiratory: chest non-tender, lungs clear, normal breath sounds Cardiovascular #1: regular rate, rhythm, no murmur Gastrointestinal: normal bowel sounds, non tender, no mass, no organomegaly, no bruit, non-distended Musculoskeletal: back normal, other - contracted Psychiatric: mood/affect normal Medical Decision Making Diagnostic Impression: Primary Impression: Episode of generalized weakness Additional Impressions: Metabolic encephalopathy Suspected COVID-19 virus infection ER Course Patient only patient presents with generalized weakness and decreased appetite and mentation. Labs unremarkable. Little prerenal azotemia. IV fluid given. No evidence of pneumonia or UTI. Because patient is from a jail that has COVID patients, nasal swab sent for COVID infection. I contacted Dr. Gonzales for admission. This patient was evaluated in the context of the global COVID-19 pandemic, which necessitated consideration that the patient might be at risk for infection with the [id number] virus that causes COVID-19. Institutional protocols and algorithms that pertain to the evaluation of patients at risk for COVID-19 and the state of rapid change based on information released by multiple regulatory bodies including the CDC and federal and state organizations. These policies and algorithms were followed during the patient' s care in the ED. EKG Diagnostic Results Rate: normal Rhythm: NSR ST Segments: no acute changes Rhythm Strip Diag. Results EP Interpretation: yes Rate: 64 Rhythm: NSR, no PVC's, no ectopy Chest X-Ray Diagnostic Results Chest X-Ray Diagnostic Results : Chest X-Ray Ordered: Yes # of Views/Limited/Complete: 1 View Indication: Chest Pain EP Interpretation: Yes Interpretation: no consolidation, no effusion, no pneumothorax, no acute cardiopulmonary disease Impression: No acute disease Electronically Signed by: Gurpreet Barron MD Last Vital Signs Date Time Temp Pulse Resp B/P (MAP) Pulse Ox O2 Delivery O2 Flow Rate FiO2 12/17/19 00:48 98.4 63 18 112/66 (81) 97 Room Air Status: improved Disposition: ADMITTED INPATIENT Condition: Serious Referrals: Michael Gonzales MD (PCP) Gurpreet Barron MD December 17, 2019 01:05
[2019-12-17] MEDS ORDERED: DOCUSATE SODIU100 MG ORAL (01:13)
[2019-12-17] MEDS ORDERED: NORVASC5 MG ORAL (01:13)
[2019-12-17] MEDS ORDERED: FOLIC ACID1 MG ORAL (01:13)
[2019-12-17] MEDS ORDERED: VITAMIN B-12500 MCG ORAL (01:13)
[2019-12-17] MEDS ORDERED: cefTRIAXone 1 GM in NS 55 ML IVPB ONE (01:30)
[2019-12-17] MEDS ORDERED: Azithromycin 500 MG in NS 275 ML IV ONE (01:30)
--- NOTE | 2019-12-17 01:34 | Diagnostic Imaging Report ---
EXAM: XR Chest, 1 View CLINICAL HISTORY: SOB TECHNIQUE: Frontal view of the chest. COMPARISON: 08/26/18 chest radiography. FINDINGS: Lungs: Airspace disease at the medial aspect of the right and left lower lobe. Consider atelectasis versus infiltrate. No hilar or mediastinal enlargement. Pleural space: No pleural effusion or pneumothorax. Heart: Unremarkable. No cardiomegaly. Mediastinum: See above. Bones/joints: Shoulder degenerative changes are again seen bilaterally. IMPRESSION: No acute findings in the chest.
[2019-12-17 02:40] LABS: APPEARANCE,URINE CLEAR; BILIRUBIN, URINE NEGATIVE (NEGATIVE); COLOR,URINE PALE YELLOW; GLUCOSE, URINE (UA) NEGATIVE (NEGATIVE); KETONES,URINE NEGATIVE (NEGATIVE); LEUKOCYTE ESTERASE ,URINE NEGATIVE (NEGATIVE); NITRITE,URINE NEGATIVE (NEGATIVE); PH,URINE 6 (4.5-8.0); PROTEIN,URINE NEGATIVE (NEGATIVE); UROBILINOGEN,URINE NORMAL MG/DL (0.0-1.0)
[2019-12-17 02:43] LABS: BASOPHILS % (AUTO) 1.1 % (0.0-2.0); EOSINOPHILS % (AUTO) 1.9 % (0.0-3.0); HEMATOCRIT 36.5 % (42.0-52.0); HEMOGLOBIN 12.6 G/DL (14.2-18.0); LYMPHOCYTES % (AUTO) 25.3 % (20.0-45.0); MEAN CORPUSCULAR VOLUME 84 FL (80-99); MONOCYTES % (AUTO) 9.1 % (1.0-10.0); NEUTROPHILS % (AUTO) 62.6 % (45.0-75.0); PLATELET COUNT 325 K/UL (150-450); RED BLOOD COUNT 4.34 M/UL (4.70-6.10); RED CELL DISTRIBUTION WIDTH 12.3 % (11.6-14.8); WHITE BLOOD COUNT 7.2 K/UL (4.8-10.8)
[2019-12-17 02:46] LABS: ANION GAP 9 mmol/L (5-15); BLOOD UREA NITROGEN 21 mg/dL (7-18); CALCIUM 7.6 MG/DL (8.5-10.1); CARBON DIOXIDE 32 MMOL/L (21-32); CHLORIDE 101 MMOL/L (98-107); POTASSIUM 4.5 MMOL/L (3.5-5.1); SODIUM 142 MMOL/L (136-145)
[2019-12-17 03:00] LABS: ALANINE AMINOTRANSFERASE 57 U/L (12-78); ALBUMIN 3.8 G/DL (3.4-5.0); ALBUMIN/GLOBULIN RATIO 0.8 (1.0-2.7); ALKALINE PHOSPHATASE 101 U/L (46-116); ASPARTATE AMINO TRANSFERASE 50 U/L (15-37); BILIRUBIN,TOTAL 0.3 MG/DL (0.2-1.0); CKMB 0.9 NG/ML (0.0-3.6); CREATINE KINASE 99 U/L (26-308)
--- NOTE | 2019-12-17 04:57 | NUR ---
ED Nurse Note: gave report to Tressa CASON
--- NOTE | 2019-12-17 05:00 | NUR ---
TRANSFER TO FLOOR: Patient transferred to [facility] via [facility] in stable condition as ordered, per Dr. Gonzales. Report given to Anjana CASON. Belongings sent with patient.
--- NOTE | 2019-12-17 07:06 | NUR ---
RD ASSESSMENT & RECOMMENDATIONS SEE CARE ACTIVITY FOR COMPLETE ASSESSMENT DAILY ESTIMATED NEEDS: Needs based on Underweight/ 47kg 30-35 kcals/kg 5991-7707 total kcals 1-1.5 g protein/kg 47-70 g total protein 25-30 mL/kg 5333-0521 total fluid mLs NUTRITION DIAGNOSIS: Increased kcal/prot needs R/T underweight status as evidenced by pt @80%IBW w/ BMI of 17.9 CURRENT DIET:Diet not yet ordered PO DIET RECOMMENDATIONS: Liberalized REGULAR w/ poor PO (Texture per TABULAR TYPIST) ADDITIONAL RECOMMENDATIONS: * Per SNF: HT=64" [id number] (11/23/19) -> rec weekly wt monitoring given underweight status * TABULAR TYPIST evaluation for appropriate texture * Ensure Enlive TID w/ meals w/ diet order * Monitor lytes, replete as needed
--- NOTE | 2019-12-17 07:15 | NUR ---
NURSE NOTES:Handoff received from KAMLA Yeung. Patient received sleeping in bed, no acute signs of distress noted. Patient has brunner catheter patent and draining, connected to the bed. Bed in the low and locked position with call light within reach, patient is on room air. Will continue to monitor patient.
[2019-12-17] MEDS: Aspirin EC 81mg tab ORAL SCH (10:21)
[2019-12-17] MEDS: Calcitriol 0.25mcg Cap ORAL SCH (10:21)
[2019-12-17] MEDS: Milk of Magnesia 30ml Ud ORAL SCH (10:21)
[2019-12-17] MEDS: Vitamin B-12 100mcg tab ORAL SCH (10:21)
[2019-12-17] MEDS: Docusate 100mg cap ORAL SCH (10:21)
--- NOTE | 2019-12-17 10:50 | NUR ---
NURSE NOTES:called and left a message for Dr New as patient does not active order for DVT prophylaxis, also need DNR/DNI order from the MD.
--- NOTE | 2019-12-17 19:54 | NUR ---
HAND-OFF: Report given to KAMLA Grewal.
--- NOTE | 2019-12-17 19:55 | NUR ---
NURSE NOTES: Received report from Domenico Honeycutt RN. Pt in stable condition, denies pain, no signs or symptoms of distress noted at this time. Will continue to monitoring and plan of care.
--- NOTE | 2019-12-17 21:59 | History and Physical Report ---
DATE OF ADMISSION: 12/17/2019 HISTORY OF PRESENT ILLNESS: This is a 69-year-old male came to the emergency room for more confusion, generalized weakness, metabolic encephalopathy, poor appetite, failure to thrive, and weight loss. The patient is currently in bed. Occasionally agitated. He is not eating well, but is able to swallow. PAST MEDICAL HISTORY: Significant for CVA, hypertension, dementia, depression, constipation, hyperlipidemia, and history of CVA. MEDICATIONS: He is taking Norvasc, aspirin, Lipitor, vitamin D, and folic acid. ALLERGIES: NKA. FAMILY HISTORY: Noncontributory. SOCIAL HISTORY: Lives at a jail, mostly bed bound, but he can talk, but cannot make his decision. His . OBJECTIVE: GENERAL: The patient is alert and oriented x1, is in the bed. VITAL SIGNS: Blood pressure is 134/75, pulse 68, respiration is 19, and temperature 98.6. HEENT: Eyes are open. NECK: Supple. CHEST: Bilateral decreased breath sounds. CARDIOVASCULAR: Regular rhythm. No gallop. No murmur. ABDOMEN: Soft. Positive bowel sounds and nontender. EXTREMITIES: No edema. GENITOURINARY: Deferred. LABORATORY DATA: His white counts are 7.2, hemoglobin 13, hematocrit 36, platelets are 325. Chemistry panel sodium 142, potassium 4.5, BUN 21, creatinine 1. Troponins are negative and his albumin is 3.3. Glucose is 88 and bilirubin 0.3. Urine is so far negative. ASSESSMENT AND PLAN: 1. Failure to thrive. 2. Metabolic encephalopathy. 3. Dementia. 4. CVA. 5. Hypertension. Add antibiotics to rule out sepsis or infection. Continue Norvasc, aspirin, calorie count, and continue current treatment. Sandeep Gonzales M.D. DR: Vee JOB#: [id number] CC:
[2019-12-18] VITALS (8 sets, daily range): BP systolic 108–138; BP diastolic 58–68
[2019-12-18] MEDS: cefTRIAXone 1 GM in D5W 55 ML IVPB SCH (05:41)
--- NOTE | 2019-12-18 07:15 | NUR ---
NURSE NOTES:handoff received from KAMLA sorto. Patient received resting in bed, no acute signs of distress noted. Patient has brunner cath patent and draining, on room air, bed in the low and locked position with call light within reach, will continue to monitor patient.
--- NOTE | 2019-12-18 07:40 | NUR ---
HAND-OFF: Report given to Domenico Honeycutt RN. Pt in stable condition, Plan of care endorsed.
[2019-12-18] MEDS: Aspirin EC 81mg tab ORAL SCH (09:09)
[2019-12-18] MEDS: Vitamin B-12 100mcg tab ORAL SCH (09:09)
[2019-12-18] MEDS: Calcitriol 0.25mcg Cap ORAL SCH (09:09)
[2019-12-18] MEDS: Docusate 100mg cap ORAL SCH (09:09)
[2019-12-18] MEDS: Milk of Magnesia 30ml Ud ORAL SCH (09:09)
--- NOTE | 2019-12-18 11:25 | NUR ---
NURSE NOTES: KAMLA Acuña made aware of result of blood culture, will follow up with Dr. Gonzales
--- NOTE | 2019-12-18 11:28 | NUR ---
NURSE NOTES:Handoff given to KAMLA Corbin
--- NOTE | 2019-12-18 11:30 | NUR ---
NURSE NOTES: Per Dr. Gonzales, consult with Dr. Salmeron. Order noted, entered, carried out.
--- NOTE | 2019-12-18 11:35 | NUR ---
NURSE NOTES:Dr Gonzales notified of Blood culture result. Faviola ID doctor consulted on the case.
--- NOTE | 2019-12-18 11:48 | NUR ---
NURSE NOTES: Paged Dr. Salmeron, left message regarding result of blood culture, awaiting for callback. Will continue to follow up.
--- NOTE | 2019-12-18 13:00 | NUR ---
NURSE NOTES: Received repot from KAMLA Acuña. The patient is resting on the bed without acute distress or shortness of breath. The patient is screaming on and off and confused. The patient's bed in the lowest position, call light in reach, and fall and aspiration precaution reinforced. IV site intact and patent on R AC 18G and L AC 20G and 1/2NS @75mL/hr running per order. The patient needs 1:1 feeder for feeding. Not[address] Dr[address] Salmeron regarding positive blood culture. Awaiting for the further order. Will continue plan of care.
--- NOTE | 2019-12-18 14:00 | NUR ---
NURSE NOTES: The patient is stable without acute distress or shortness of breath at this time. Dr. Salmeron ordered [facility] to dose for positive blood culture. Will closely monitor the patient. Will continue plan of care.
[2019-12-18] MEDS: Vancomycin 500mg/D5W 110ml IVPB SCH ×2 (16:57)
--- NOTE | 2019-12-18 17:00 | NUR ---
NURSE NOTES: The patient is stable without acute distress or shortness of breath. Feeding completed for dinner. Vital signs stable. Administered antibiotics for positive blood culture per order. Will closely monitor the patient.
--- NOTE | 2019-12-18 18:00 | NUR ---
NURSE NOTES: The patient is resting on the bed without acute distress or shortness of breath. Tolerating well in room air. Vital signs stable. Will continue plan of care.
--- NOTE | 2019-12-18 19:20 | NUR ---
HAND-OFF: Report given to KAMLA Alston. The patient is resting on the bed without acute distress or shortness of breath. The patient is on stable condition. Endorsed plan of care.
--- NOTE | 2019-12-18 19:30 | NUR ---
NURSE NOTES: Received report from Pito Jaquez RN. Pt in stable condition, denies pain, no signs or symptoms of distress noted at this time. Will continue plan of care and close monitoring.
[2019-12-19] VITALS: BP 109/61
--- NOTE | 2019-12-19 00:29 | Progress Note ---
DATE: 12/18/2019 SUBJECTIVE: This is an elderly male, who was living at custodial, came to the emergency room for failure to thrive, weight loss, dehydration, and rule out COVID. The patient is currently doing okay. He is in the bed, nonverbal, vocationally agitated. His COVID test is pending. PHYSICAL EXAMINATION: VITAL SIGNS: Blood pressure is 130/70, pulse 74, respiration 18. HEENT: NAD. CHEST: Bilaterally clear. CARDIOVASCULAR: Regular rhythm. No gallop. No murmur. ABDOMEN: Soft. Positive bowel sounds. EXTREMITIES: CCE. NEUROLOGICAL: The patient has generalized weakness and bedridden. GENITOURINARY: Deferred. LABORATORY DATA: The patient has no labs today. ASSESSMENT AND PLAN: 1. Failure to thrive. 2. Weight loss. 3. Rule out COVID. 4. CVA. 5. Dementia. 6. We will currently continue IV fluids. Continue current treatment and we are waiting for COVID test. Sandeep Gonzales M.D. DR: KALEIGH JOB#: [id number] CC:
[2019-12-19] MEDS: Vancomycin 500mg/D5W 110ml IVPB SCH ×4 (04:17→17:29)
[2019-12-19] MEDS: cefTRIAXone 1 GM in D5W 55 ML IVPB SCH (06:24)
--- NOTE | 2019-12-19 07:20 | NUR ---
NURSE NOTES:Handoff received from KAMLA Alston. Patient received awake and alert and resting in bed, no acute signs of distress noted. Patient has IV fluids running at 75ml/hr, Mccollum is patent and draining, connected to the side of bed. Bed alarm on and bed in the low and locked position, call light within reach. Will continue to monitor patient.
--- NOTE | 2019-12-19 07:36 | NUR ---
HAND-OFF: Report given to Domenico Honeycutt RN. Pt in stable condition, denies pain, plan of care endorsed.
[2019-12-19 08:00] VITALS: BP 120/69
[2019-12-19] MEDS: Calcitriol 0.25mcg Cap ORAL SCH (09:21)
[2019-12-19] MEDS: Milk of Magnesia 30ml Ud ORAL SCH (09:21)
[2019-12-19] MEDS: Docusate 100mg cap ORAL SCH (09:21)
[2019-12-19] MEDS: Aspirin EC 81mg tab ORAL SCH (09:21)
[2019-12-19] MEDS: Vitamin B-12 100mcg tab ORAL SCH (09:21)
[2019-12-19 12:00] VITALS: BP 134/60
[2019-12-19 16:00] VITALS: BP 130/59
--- NOTE | 2019-12-19 17:44 | Progress Note ---
DATE: 12/19/2019 SUBJECTIVE: This is a 69-year-old male, slightly agitated in the bed, comfortable, eating fine, no distress. PHYSICAL EXAMINATION: VITAL SIGNS: Blood pressure is 120/69, pulse 70, respirations 20, temperature 97.5. HEENT: Eyes are open. NECK: Supple. CHEST: Bilaterally decreased breath sounds. CARDIOVASCULAR: Regular rhythm. No gallop. No murmur. ABDOMEN: Soft. EXTREMITIES: CCE. NEUROLOGICAL: Generalized weakness, confusion. LABORATORY DATA: White count 7.2, hemoglobin 13. Chemistry panel sodium 142, potassium 4.5, BUN 21, creatinine 1, glucose 120. His troponins are negative. Urine is negative. Blood culture growing gram-positive cocci. ASSESSMENT: 1. Dehydration. 2. Altered mental status. 3. Depression. 4. Dementia. 5. . ID consult was obtained. The patient was placed on vancomycin, ceftriaxone. Continue Norvasc. Continue aspirin, folic acid, milk of magnesia, multivitamin. PT and OT. Aspiration precautions and skin care. Sandeep Gonzales M.D. DR: Reed JOB#: [id number] CC:
--- NOTE | 2019-12-19 18:30 | Consultation ---
DATE OF CONSULTATION: 12/19/2019 INFECTIOUS DISEASES CONSULTATION CONSULTING PHYSICIAN: Brian Salmeron MD. REFERRING PHYSICIAN: Michael Gonzales MD. REASON FOR CONSULTATION: Bacteremia. HISTORY OF PRESENT ILLNESS: This is an 69-year-old gentleman with history of hypertension, CVA, dementia, hyperlipidemia, who came in with weakness, poor appetite, failure to thrive. He was found to be bacteremic. There was concern for COVID-19 pneumonia and an Infectious Diseases consultation has been obtained for antibiotics. PAST MEDICAL HISTORY: 1. History of hypertension. 2. CVA. 3. Dementia. 4. Hyperlipidemia. SOCIAL HISTORY: Unknown. FAMILY HISTORY: Unknown. REVIEW OF SYSTEMS: Unable to obtain currently. MEDICATIONS: As an inpatient he is on IV vancomycin, ceftriaxone, atorvastatin, amlodipine, aspirin, calcitriol, cyanocobalamin, docusate, folic acid, milk of magnesia, multivitamin, Tylenol. ALLERGIES: No known drug allergies. PHYSICAL EXAMINATION: VITAL SIGNS: Temperature of 97.5, T-max of 98.3, pulse of 70, respiratory rate 20, blood pressure 120/69, O2 saturation of 100%. Examination deferred due to possibility of COVID-19. LABORATORY AND DIAGNOSTIC DATA: White count 7.2, hemoglobin 12.6, hematocrit 36.4, MCV 84, platelet count 325, neutrophils of 62%. Sodium 142, potassium 4.5, chloride 101, bicarb 32, BUN 21, creatinine 1, glucose 88, calcium 7.6. Total bilirubin 0.3, AST 50, ALT 57, alkaline phosphatase 101. CK of 99, CK-MB 0.9. Troponin 0. Total protein 8.4, albumin 3.8. UA showing LE negative. Blood culture showing gram-positive cocci from 12/17/2019. Rectal swab was negative for VRE. Nasal swab was negative for MRSA. Chest x-ray showing no acute findings, possible atelectasis versus infiltrate in the left lower lobe, airspace disease of the medial aspect of the right and left lower lobe. ASSESSMENT: This is a 69-year-old gentleman with history of hypertension, CVA, hyperlipidemia, who comes in with failure to thrive, poor appetite, and not eating well and is found to have: 1. Possible gram-positive sepsis. 2. Possible pneumonia, rule out COVID-19. 3. CVA. 4. Dementia. PLAN: 1. Continue ceftriaxone. 2. IV vancomycin started. 3. Continue isolation. 4. We will follow up the patient clinically. I would like to thank, Dr. Gonzales for this consultation. Brian Salmeron M.D. DR: Katie JOB#: [id number] CC: Sandeep Gonzales M.D.; Fax#: [phone]
--- NOTE | 2019-12-19 18:40 | NUR ---
HAND-OFF: Report given to KAMLA Fraire.
--- NOTE | 2019-12-19 19:30 | NUR ---
Receive pt from [facility] in stable condition. Pt is non-verbal, bed-bound, No sob, no complain of pain, no fever , and vitals are stable. Pt has two iv on right and left A/C. pt has 16f Mccollum catheter. Pt is in isolation for covid 19 r/o. Bed is in the lower position, alarm on, and locked. call light within reach. we will keep monitoring Addendum: 12/19/19 at 2210 by MANDA ARAIZA RN discard the above note
--- NOTE | 2019-12-19 19:30 | NUR ---
NURSE NOTES: Receive pt from tele in stable condition. Pt is non-verbal, bed-bound, No sob, no complain of pain, no fever , and vitals are stable. Pt has two iv on right and left A/C. pt has 16f Mccollum catheter. Pt is in isolation for covid 19 r/o. Bed is in the lower position, alarm on, and locked. call light within reach. we will keep monitoring
[2019-12-19 20:00] VITALS: BP 148/78
--- NOTE | 2019-12-19 20:00 | NUR ---
NURSE NOTES: Receive covid 19 result and pt is positive. I notified Dr. Graves and she is said she will put order for hydroxychloroquine in the morning.
[2019-12-20] VITALS: BP 132/64
[2019-12-20 04:00] VITALS: BP 130/72
[2019-12-20] MEDS: Vancomycin 500mg/D5W 110ml IVPB SCH ×2 (04:39)
[2019-12-20 05:02] LABS: BASOPHILS % (AUTO) 1.4 % (0.0-2.0); EOSINOPHILS % (AUTO) 2.8 % (0.0-3.0); HEMATOCRIT 33.3 % (42.0-52.0); HEMOGLOBIN 11.1 G/DL (14.2-18.0); LYMPHOCYTES % (AUTO) 17.2 % (20.0-45.0); MEAN CORPUSCULAR VOLUME 85 FL (80-99); MONOCYTES % (AUTO) 8.7 % (1.0-10.0); NEUTROPHILS % (AUTO) 70.1 % (45.0-75.0); PLATELET COUNT 265 K/UL (150-450); RED BLOOD COUNT 3.93 M/UL (4.70-6.10); RED CELL DISTRIBUTION WIDTH 12.9 % (11.6-14.8); WHITE BLOOD COUNT 6.8 K/UL (4.8-10.8)
[2019-12-20 05:13] LABS: ANION GAP 9 mmol/L (5-15); BLOOD UREA NITROGEN 16 mg/dL (7-18); CALCIUM 7.1 MG/DL (8.5-10.1); CARBON DIOXIDE 32 MMOL/L (21-32); CHLORIDE 102 MMOL/L (98-107); CREATININE 0.8 MG/DL (0.55-1.30); POTASSIUM 4.2 MMOL/L (3.5-5.1); SODIUM 143 MMOL/L (136-145)
[2019-12-20] MEDS: cefTRIAXone 1 GM in D5W 55 ML IVPB SCH (06:43)
--- NOTE | 2019-12-20 07:15 | NUR ---
HAND-OFF: Report given to KAMLA Atkinson.
--- NOTE | 2019-12-20 07:42 | NUR ---
NURSE NOTES: Patient awake, nov-verbal; on room air, no sing of distress and shortness of breath; IV Right AC 1/2NS @75cc; Left AC flushes well; Mccollum in place, drains yellow urine; side rails up x2, breaks engaged, bed at lowest position, bed alarm on; call light within reach; will keep monitoring.
[2019-12-20 08:00] VITALS: BP 121/72
[2019-12-20] MEDS: Vitamin B-12 100mcg tab ORAL SCH (08:32)
[2019-12-20] MEDS: Milk of Magnesia 30ml Ud ORAL SCH (08:32)
[2019-12-20] MEDS: Aspirin EC 81mg tab ORAL SCH (08:32)
[2019-12-20] MEDS: Docusate 100mg cap ORAL SCH (08:32)
[2019-12-20] MEDS: Calcitriol 0.25mcg Cap ORAL SCH (08:32)
--- NOTE | 2019-12-20 10:38 | NUR ---
RD ASSESSMENT & RECOMMENDATIONS SEE CARE ACTIVITY FOR COMPLETE ASSESSMENT DAILY ESTIMATED NEEDS: Needs based on Underweight/ 47kg 30-35 kcals/kg 6475-1631 total kcals 1-1.5 g protein/kg 47-70 g total protein 25-30 mL/kg 4317-8719 total fluid mLs NUTRITION DIAGNOSIS: Increased kcal/prot needs R/T underweight status as evidenced by pt @80%IBW w/ BMI of 17.9 CURRENT DIET:Regular ms finely chopped w/ Ensure enlive TID PO DIET RECOMMENDATIONS: Liberalized REGULAR w/ poor PO (Texture per BATTERBOARD SETTER) ADDITIONAL RECOMMENDATIONS: * Per SNF: HT=64" JL=133xji (11/23/19) -> rec weekly wt monitoring given underweight status * BATTERBOARD SETTER evaluation for appropriate texture * Ensure Enlive TID w/ meals w/ diet order * Monitor lytes, replete as needed * If tolerated, rec DUGLAS FRUIT PUNCH BID to maintain skin integrity ------- 72 kcal count: 10/23 menu tickets available: -Lunch (12/17): soup 100%, mashed potatoes 100%, Ensure Enlive 100%, 4 oz whole milk 100%. -Dinner (12/17): unable to evaluate d/t poor documentation, Ensure Enlive 100%. -Dinner (12/18): Chicken 100%, carrots 100%, mashed potatoes 100%, Ensure Enlive 100%. ----- Per EMR: (12/18)75 25 25% (12/17)100 50 75% (12/16)%intake not available ------ Based on above limited information, RD est pt meeting est kcal needs w/ Ensure Enlive TID (350 kcal each) and minimum of 25-50% intake of meals which appears to be the case based on % intake. Rec to continue Ensure TID and 1:1 feeds w/ all meals for max po intake.
--- NOTE | 2019-12-20 10:46 | Infectious Diseases Prog Note ---
Assessment/Plan Assessment/Plan antibiotics : vancomycin iv, ceftriaxone A 1. COVID 19 pneumonia 2. + blood cultures with coag neg staph likely contaminated 3. CVA 4. hypertension 5. dementia P 1. start hydroxychloroquine 2. d/c iv vancomycin, ceftriaxone 3. will follow up cultures 4. continue isolation Subjective ROS Limited/Unobtainable: Yes Allergies: Coded Allergies: No Known Allergies (Unverified , 08/26/18) Objective Vital Signs Last 24 Hour Vital Signs Date Time Temp Pulse Resp B/P (MAP) Pulse Ox O2 Delivery O2 Flow Rate FiO2 12/20/19 09:00 Room Air 12/20/19 08:32 74 121/72 12/20/19 08:00 97.4 74 19 121/72 (88) 98 12/20/19 04:00 97.2 71 20 130/72 (91) 97 12/20/19 00:00 97.3 76 20 132/64 (86) 98 12/19/19 21:00 Room Air 12/19/19 20:00 97.7 72 22 148/78 (101) 96 12/19/19 16:00 97.8 70 20 130/59 (82) 96 12/19/19 12:00 97.9 71 20 134/60 (84) 92 Height (Feet): 5 Height (Inches): 9.00 Weight (Pounds): 104 Laboratory Tests Test 12/20/19 04:30 White Blood Count 6.8 K/UL (4.8-10.8) Red Blood Count 3.93 M/UL (4.70-6.10) L Hemoglobin 11.1 G/DL (14.2-18.0) L Hematocrit 33.3 % (42.0-52.0) L Mean Corpuscular Volume 85 FL (80-99) Mean Corpuscular Hemoglobin 28.1 PG (27.0-31.0) Mean Corpuscular Hemoglobin Concent 33.2 G/DL (32.0-36.0) Red Cell Distribution Width 12.9 % (11.6-14.8) Platelet Count 265 K/UL (150-450) Mean Platelet Volume 6.3 FL (6.5-10.1) L Neutrophils (%) (Auto) 70.1 % (45.0-75.0) Lymphocytes (%) (Auto) 17.2 % (20.0-45.0) L Monocytes (%) (Auto) 8.7 % (1.0-10.0) Eosinophils (%) (Auto) 2.8 % (0.0-3.0) Basophils (%) (Auto) 1.4 % (0.0-2.0) Sodium Level 143 MMOL/L (136-145) Potassium Level 4.2 MMOL/L (3.5-5.1) Chloride Level 102 MMOL/L (98-107) Carbon Dioxide Level 32 MMOL/L (21-32) Anion Gap 9 mmol/L (5-15) Blood Urea Nitrogen 16 mg/dL (7-18) Creatinine 0.8 MG/DL (0.55-1.30) Estimat Glomerular Filtration Rate > 60 mL/min (>60) Glucose Level 86 MG/DL (74-106) Calcium Level 7.1 MG/DL (8.5-10.1) L Vancomycin Level Trough 11.6 ug/mL (5.0-12.0) Current Medications Medications (Trade) Dose Ordered Sig/Luca Route PRN Reason Start Time Stop Time Status Last Admin Dose Admin Acetaminophen (Tylenol) 650 mg Q4H PRN ORAL MILD/TEMP 12/17/19 07:30 01/16/20 07:29 12/18/19 09:13 Amlodipine Besylate (Norvasc) 5 mg DAILY ORAL 12/17/19 09:00 01/16/20 08:59 12/20/19 08:32 Aspirin (Ecotrin) 81 mg DAILY ORAL 12/17/19 09:00 01/31/20 08:59 12/20/19 08:32 Atorvastatin Calcium (Lipitor) 10 mg BEDTIME ORAL 12/17/19 21:00 03/16/20 20:59 12/19/19 21:06 Calcitriol (Rocatrol) 0.25 mcg DAILY ORAL 12/17/19 09:00 03/16/20 08:59 12/20/19 08:32 Ceftriaxone Sodium 1 gm/ Dextrose 55 ml @ 110 mls/hr Q24H IVPB 12/18/19 06:00 12/25/19 05:59 12/20/19 06:43 Cyanocobalamin (Vitamin B-12 Tab) 100 mcg DAILY ORAL 12/17/19 09:00 01/16/20 08:59 12/20/19 08:32 Docusate Sodium (Colace) 100 mg DAILY ORAL 12/17/19 09:00 01/16/20 08:59 12/20/19 08:32 Folic Acid (Folate) 1 mg DAILY ORAL 12/17/19 09:00 01/16/20 08:59 12/20/19 08:32 Magnesium Hydroxide (Mom) 30 ml DAILY ORAL 12/17/19 09:00 01/16/20 08:59 12/20/19 08:32 Multivitamins (Multivitamins) 1 tab DAILY ORAL 12/17/19 09:00 01/16/20 08:59 12/20/19 08:32 Sodium Chloride 1,000 ml @ 75 mls/hr [id number] IV 12/17/19 08:00 01/16/20 07:59 12/20/19 02:29 Vancomycin HCl (Vanco rx to dose) 1 ea DAILY PRN MISC Per rx protocol 12/18/19 14:30 01/17/20 14:29 Vancomycin HCl 750 mg/Sodium Chloride 275 ml @ 183.333 mls/hr Q12H IVPB 12/20/19 17:00 12/25/19 16:59 Brian Salmeron MD December 20, 2019 10:46
[2019-12-20] MEDS ORDERED: Hydroxychloroquine Fact Sheet MISC ONE (11:00)
[2019-12-20 12:00] VITALS: BP 112/63
--- NOTE | 2019-12-20 12:23 | NUR ---
NURSE NOTES: Per MD Salmeron, she stated she was unable to reach the family for consent for COVID med treatment. I advised the RN and per . she wished to begin treatment. A call was made to pharmacy as well.
--- NOTE | 2019-12-20 12:39 | NUR ---
CASE MANAGEMENT:INITIAL REVIEW 12/17/19 69 YR OLD MALE BIBA FROM [facility] CC;GENERALIZED WEAKNESS SI;GENERALIZED WEAKNESS. DEHYDRATION. METABOLIC ENCEPHALOPATHY. SUSPECTED COVID-19 98.6 67 18 141/117 98% ON RA BUN 21 CA 7.6 AST 50 UA ~ NEGATIVE CXR ~ NO ACUTE FINDINGS COVID-19 SWAB ~ RESULT PENDING IS;IVF NS BOLUS ROCEPHIN IV ONCE ZITHROMAX IV ONCE ADMITTED TO TELEMETRY @ 0403 ON 12/17/19 TELE STATUS DCP;FROM [facility]
--- NOTE | 2019-12-20 12:47 | NUR ---
CASE MANAGEMENT:REVIEW SI;COVID-19 PNEUMONIA DEHYDRATION. ALTERED MENTAL STATUS. 97.2 76 20 132/64 97% ON RA CA 7.1 IS;PLAQUENIL PO Q12 HRS VANCOMYCIN IV Q12 HRS ROCEPHIN IV Q24 HRS ASA PO QD NORVASC PO QD IVF NS @ 75 ML/HR TRANSFERRED TO MED SURG @ 1056 ON 12/19/19 MED SURG STATUS DCP;FROM [facility]
[2019-12-20 16:00] VITALS: BP 116/60
[2019-12-20] MEDS ORDERED: Vancomycin 750mg/NS 275ml IVPB SCH ×2 (17:00)
--- NOTE | 2019-12-20 19:30 | NUR ---
HAND-OFF: Report given to KAMLA Bassett.
--- NOTE | 2019-12-20 19:31 | NUR ---
NURSE NOTES: Received report & pt from KAMLA Ortiz. Pt lying in bed, non-verbal, in room air. No s/s of acute distress & no s/s of pain. Mccollum intact & draining urine to gravity. IV site(s) intact with IVF running as ordered. On droplet & contact precautions. Bed in lowest position, call light within reach. Will continue to monitor.
[2019-12-20 20:00] VITALS: BP 142/78
--- NOTE | 2019-12-20 20:30 | Progress Note ---
DATE: 12/20/2019 SUBJECTIVE: This is elderly male came with failure to thrive, dehydration, possible rule out COVID. The patient is currently awake, alert, slightly agitated, mostly bedbound. PHYSICAL EXAMINATION: VITAL SIGNS: Blood pressure is 110/70, pulse 74, respirations 18, and no fever. HEENT: NAD. CHEST: Bilateral decreased breath sounds. CARDIOVASCULAR: Regular rhythm. No gallop. No murmur. ABDOMEN: Soft. Positive bowel sounds and nontender. EXTREMITIES: No edema GENITOURINARY: Deferred. LABORATORY DATA: The patient has no labs today. ASSESSMENT AND PLAN: 1. Failure to thrive. 2. Weight loss. 3. Dehydration. 4. Rule out COVID. 5. Rule out sepsis. 6. Dementia. 7. We will currently continue IV fluid, IV antibiotics, isolation, waiting for COVID. The patient is losing some weight. Sandeep Gonzales M.D. DR: Vee JOB#: [id number] CC:
--- NOTE | 2019-12-20 23:04 | Initial Psychiatric Evaluation ---
Psychiatry Consultation Psychiatry Consultation Chief Complaint: Generalized Weakness History of Present Illness: 69-year-old male with confusion, generalized weakness, metabolic encephalopathy, poor appetite, failure to thrive. the pt is yelling and agitated unable to provide hx the pt is not eating. Allergies: Coded Allergies: No Known Allergies (Unverified , 08/26/18) Medication History Scheduled Amlodipine Besylate (Norvasc), 5 MG ORAL DAILY, (Reported) Aspirin (Aspirin EC), 81 MG ORAL DAILY, (Reported) Atorvastatin Calcium* (Lipitor*), 10 MG ORAL BEDTIME, (Reported) Calcitriol (Calcitriol), 0.25 MCG PO DAILY, (Reported) Calcium Carbonate/Vitamin D3 (Calcium 500 + Vit D 200 Caplet), 1 EACH PO THREE TIMES A DAY, (Reported) Cyanocobalamin (Vitamin B-12)* (Vitamin B-12*), 100 MCG ORAL DAILY, (Reported) Docusate Sodium* (Docusate Sodium*), 100 MG ORAL DAILY, (Reported) Folic Acid* (Folic Acid*), 1 MG ORAL DAILY, (Reported) Loratadine (Claritin), 10 MG ORAL Q6HR, (Reported) Magnesium Hydroxide (Milk of Magnesia), 30 ML ORAL DAILY, (Reported) Magnesium Hydroxide* (Milk Of Magnesia*), 30 ML ORAL DAILY, (Reported) Multivitamins* (Multivitamins*), 1 TAB ORAL DAILY, (Reported) Scheduled PRN Acetaminophen* (Acetaminophen 325MG Tablet*), 650 MG ORAL Q4H PRN for Mild Pain/ Temp > 100.5, (Reported) Melatonin (Melatonin), 5 MG ORAL BEDTIME PRN for Insomnia, (Reported) Miscellaneous Medications Bisacodyl (Dulcolax), 10 MG RC, (Reported) Na Phos,M-B/Na Phos,Di-Ba (Fleet Enema), 133 ML RC, (Reported) Patient History Limited by: medical condition History Provided By: Patient, Medical Record Appearance: disheveled Behavior Mannerisms: good eye contact Affect: constricted Mood: agitated Suicidal Ideation: not present Assessment/Plan Problem List: (1) Metabolic encephalopathy Assessment & Plan: dementia ICD Codes: G93.41 - Metabolic encephalopathy SNOMED: 24869501 Assessment/Plan: risperdal prn Kelby Martinez rn, MD December 20, 2019:04
[2019-12-21] VITALS: BP 109/54
[2019-12-21 04:00] VITALS: BP 124/58
--- NOTE | 2019-12-21 07:07 | NUR ---
NURSE NOTES: Patient awake, non-verbal; on room air, no sing of distress and shortness of breath; no sing of chest pain; Mccollum in place, drain yellow urine; IV Right AC and Left AC fluid running; side rails up x2, breaks engaged, bed at lowest position, bed alarm on; call light within reach; will keep monitoring.
--- NOTE | 2019-12-21 07:08 | NUR ---
HAND-OFF: Report given to KAMLA Ortiz.Pt in stable condition.
[2019-12-21 08:00] VITALS: BP 107/58
[2019-12-21] MEDS: Calcitriol 0.25mcg Cap ORAL SCH (09:17)
[2019-12-21] MEDS: Vitamin B-12 100mcg tab ORAL SCH (09:17)
[2019-12-21] MEDS: Milk of Magnesia 30ml Ud ORAL SCH (09:17)
[2019-12-21] MEDS: Docusate 100mg cap ORAL SCH (09:17)
[2019-12-21] MEDS: Aspirin EC 81mg tab ORAL SCH (09:17)
--- NOTE | 2019-12-21 10:44 | Infectious Diseases Prog Note ---
Assessment/Plan Assessment/Plan antibiotics : hydroxychloroquine A 1. COVID 19 pneumonia 2. + blood cultures with coag neg staph likely contaminated 3. CVA 4. hypertension 5. dementia P 1. continue hydroxychloroquine 3 more days d/w patients sister, who consented to it 2. will follow up cultures 3. continue isolation Subjective ROS Limited/Unobtainable: Yes Allergies: Coded Allergies: No Known Allergies (Unverified , 08/26/18) Objective Vital Signs Last 24 Hour Vital Signs Date Time Temp Pulse Resp B/P (MAP) Pulse Ox O2 Delivery O2 Flow Rate FiO2 12/21/19 09:17 67 107/58 12/21/19 09:00 Room Air 12/21/19 08:00 97.2 67 19 107/58 (74) 97 12/21/19 04:00 97.5 72 20 124/58 (80) 94 12/21/19 00:00 97.6 71 22 109/54 (72) 94 12/20/19 21:00 Room Air 12/20/19 20:00 97.6 77 20 142/78 (99) 96 12/20/19 16:00 98.1 65 18 116/60 (78) 98 12/20/19 12:00 98.1 79 18 112/63 (79) 98 Height (Feet): 5 Height (Inches): 9.00 Weight (Pounds): 91 Current Medications Medications (Trade) Dose Ordered Sig/Luca Route PRN Reason Start Time Stop Time Status Last Admin Dose Admin Acetaminophen (Tylenol) 650 mg Q4H PRN ORAL MILD/TEMP 12/17/19 07:30 01/16/20 07:29 12/18/19 09:13 Amlodipine Besylate (Norvasc) 5 mg DAILY ORAL 12/17/19 09:00 01/16/20 08:59 12/21/19 09:17 Aspirin (Ecotrin) 81 mg DAILY ORAL 12/17/19 09:00 01/31/20 08:59 12/21/19 09:17 Atorvastatin Calcium (Lipitor) 10 mg BEDTIME ORAL 12/17/19 21:00 03/16/20 20:59 12/20/19 20:19 Calcitriol (Rocatrol) 0.25 mcg DAILY ORAL 12/17/19 09:00 03/16/20 08:59 12/21/19 09:17 Cyanocobalamin (Vitamin B-12 Tab) 100 mcg DAILY ORAL 12/17/19 09:00 01/16/20 08:59 12/21/19 09:17 Docusate Sodium (Colace) 100 mg DAILY ORAL 12/17/19 09:00 01/16/20 08:59 12/21/19 09:17 Folic Acid (Folate) 1 mg DAILY ORAL 12/17/19 09:00 01/16/20 08:59 12/21/19 09:17 Hydroxychloroquine Sulfate (Plaquenil) 200 mg Q12HR ORAL 12/21/19 09:00 12/24/19 21:01 12/21/19 09:18 Magnesium Hydroxide (Mom) 30 ml DAILY ORAL 12/17/19 09:00 01/16/20 08:59 12/21/19 09:17 Multivitamins (Multivitamins) 1 tab DAILY ORAL 12/17/19 09:00 01/16/20 08:59 12/21/19 09:17 Risperidone (RisperDAL) 1 mg Q6H PRN ORAL Agitation 12/20/19 14:45 02/03/20 14:44 Sodium Chloride 1,000 ml @ 75 mls/hr [id number] IV 12/17/19 08:00 01/16/20 07:59 12/21/19 05:02 Brian Salmeron MD December 21, 2019 10:44
[2019-12-21 12:00] VITALS: BP 113/59
--- NOTE | 2019-12-21 13:09 | NUR ---
NURSE NOTES: Patient next of kin Anel Salazar called to add Rajeev Liang to be added on the list of contacts for this patient; also Martin wants MD Salmeron to call Rajeev Liang at [phone] to discuss about the medication Hydoxychloroquine; I called and left a voice message to MD Salmeron; waiting call back.
--- NOTE | 2019-12-21 13:57 | NUR ---
CASE MANAGEMENT:REVIEW SI;COVID-19 PNEUMONIA. ENCEPHALOPATHY. FTT. 97.3 72 22 107/58 94% OON RA IS;PLAQUENIL PO Q12 HRS NORVASC PO QD ASA PO QD CALCITROL PO QD IVF NS @ 75 ML/HR MED SURG STATUS DCP;FROM [facility]
[2019-12-21 16:00] VITALS: BP 103/54
--- NOTE | 2019-12-21 17:45 | Progress Note ---
DATE: 12/21/2019 SUBJECTIVE: This is a 69-year-old male currently in the bed comfortable, poor appetite, and DNR. PHYSICAL EXAMINATION: VITAL SIGNS: Blood pressure 107/58, pulse 68, no fever. HEENT: NAD. CHEST: Bilaterally decreased breath sounds. CARDIOVASCULAR: Regular rhythm. ABDOMEN: Soft. EXTREMITIES: CCE. LABORATORY DATA: Waiting for COVID result, second COVID. Labs from yesterday are okay. Initial blood culture showing Staph but later on cultures are pending. ASSESSMENT: 1. Failure to thrive. 2. Generalized weakness. 3. Rule out COVID. PLAN: 1. continue antibiotic. 2. Awaiting for COVID results. 3. Increase p.o. fluids Sandeep Gonzales M.D. DR: Reed JOB#: [id number] CC:
--- NOTE | 2019-12-21 19:27 | NUR ---
HAND-OFF: Report given to KAMLA Tan.
--- NOTE | 2019-12-21 19:30 | NUR ---
NURSE NOTES: Received patient in bed. A&OX1,confused, non verbal. IV site patent and intact. Mccollum draining well by gravity, yellow urine noted. Bed in lowest position. Call light within reach. Will continue to monitor.
[2019-12-21 20:00] VITALS: BP 103/59
--- NOTE | 2019-12-21 20:14 | Psych Consult Progress Note ---
Psychiatry Progress Note Psychiatry Progress Note Medications Current Medications Medications (Trade) Dose Ordered Sig/Luca Route PRN Reason Start Time Stop Time Status Last Admin Dose Admin Acetaminophen (Tylenol) 650 mg Q4H PRN ORAL MILD/TEMP 12/17/19 07:30 01/16/20 07:29 12/18/19 09:13 Amlodipine Besylate (Norvasc) 5 mg DAILY ORAL 12/17/19 09:00 01/16/20 08:59 12/21/19 09:17 Aspirin (Ecotrin) 81 mg DAILY ORAL 12/17/19 09:00 01/31/20 08:59 12/21/19 09:17 Atorvastatin Calcium (Lipitor) 10 mg BEDTIME ORAL 12/17/19 21:00 03/16/20 20:59 12/20/19 20:19 Calcitriol (Rocatrol) 0.25 mcg DAILY ORAL 12/17/19 09:00 03/16/20 08:59 12/21/19 09:17 Cyanocobalamin (Vitamin B-12 Tab) 100 mcg DAILY ORAL 12/17/19 09:00 01/16/20 08:59 12/21/19 09:17 Docusate Sodium (Colace) 100 mg DAILY ORAL 12/17/19 09:00 01/16/20 08:59 12/21/19 09:17 Folic Acid (Folate) 1 mg DAILY ORAL 12/17/19 09:00 01/16/20 08:59 12/21/19 09:17 Hydroxychloroquine Sulfate (Plaquenil) 200 mg Q12HR ORAL 12/21/19 09:00 12/24/19 21:01 12/21/19 09:18 Magnesium Hydroxide (Mom) 30 ml DAILY ORAL 12/17/19 09:00 01/16/20 08:59 12/21/19 09:17 Multivitamins (Multivitamins) 1 tab DAILY ORAL 12/17/19 09:00 01/16/20 08:59 12/21/19 09:17 Risperidone (RisperDAL) 1 mg Q6H PRN ORAL Agitation 12/20/19 14:45 02/03/20 14:44 Sodium Chloride 1,000 ml @ 75 mls/hr [id number] IV 12/17/19 08:00 01/16/20 07:59 5/6/20 17:30 Neurological/Psychiatric: Reports: anxiety, depressed, emotional problems Allergies: Coded Allergies: No Known Allergies (Unverified , 08/26/18) Objective Data Height (Feet): 5 Height (Inches): 9.00 Weight (Pounds): 91 General Appearance: no apparent distress, alert, confused, agitated Appearance: disheveled Behavior Mannerisms: good eye contact Mental Status Exam - Mood: anxious, agitated Speech: clear Mental Status Exam - Suicidal: not present Assessment/Plan Problem List: (1) Metabolic encephalopathy Assessment & Plan: dementia ICD Codes: G93.41 - Metabolic encephalopathy SNOMED: [id number] Status: stable Assessment/Plan: Kelby Garcia rn, MD December 21, 2019 20:14
[2019-12-22] VITALS: BP 136/74
[2019-12-22 04:00] VITALS: BP 137/78
[2019-12-22 06:10] LABS: BASOPHILS % (AUTO) 0.5 % (0.0-2.0); EOSINOPHILS % (AUTO) 1.7 % (0.0-3.0); HEMATOCRIT 32.2 % (42.0-52.0); HEMOGLOBIN 10.7 G/DL (14.2-18.0); MEAN CORPUSCULAR VOLUME 85 FL (80-99); MONOCYTES % (AUTO) 6.2 % (1.0-10.0); NEUTROPHILS % (AUTO) 82.5 % (45.0-75.0); PLATELET COUNT 255 K/UL (150-450); RED BLOOD COUNT 3.78 M/UL (4.70-6.10); RED CELL DISTRIBUTION WIDTH 12.8 % (11.6-14.8); WHITE BLOOD COUNT 10.5 K/UL (4.8-10.8)
[2019-12-22 06:51] LABS: ANION GAP 9 mmol/L (5-15); BLOOD UREA NITROGEN 16 mg/dL (7-18); CALCIUM 7.3 MG/DL (8.5-10.1); CARBON DIOXIDE 33 MMOL/L (21-32); CHLORIDE 103 MMOL/L (98-107); CREATININE 0.9 MG/DL (0.55-1.30); POTASSIUM 4.4 MMOL/L (3.5-5.1); SODIUM 145 MMOL/L (136-145)
--- NOTE | 2019-12-22 07:25 | NUR ---
NURSE NOTES: Received patient in bed. Awake, alert x1, confused. On room air, Patient denies pain at this time. IV int he right forearm and Left forearm running IVF as ordered. F/C in place draining clear yellow urine. Patient is high fall risk, CN and SERVICING MANAGER made aware. Bed at the lowest position, bed locked, bed alarm on high sensitivity. Patient returned demonstration by use of call light. Patient placed close to the nurses station for safety. Door sign in place, yellow gown, and yellow socks in place.
--- NOTE | 2019-12-22 07:47 | NUR ---
HAND-OFF: Report given to Eyad CASON.
[2019-12-22 08:00] VITALS: BP 118/56
--- NOTE | 2019-12-22 08:00 | NUR ---
NURSE NOTES: RN found tourniquet tied on patient's Left upper arm. Skin was red when tourniquet was released with blanchable and nonblanchable areas. Skin cleansed with NS and applied cavilon on redness.
[2019-12-22] MEDS: Docusate 100mg cap ORAL SCH (08:45)
[2019-12-22] MEDS: Vitamin B-12 100mcg tab ORAL SCH (08:45)
[2019-12-22] MEDS: Aspirin EC 81mg tab ORAL SCH (08:45)
[2019-12-22] MEDS: Calcitriol 0.25mcg Cap ORAL SCH (08:45)
[2019-12-22] MEDS: Milk of Magnesia 30ml Ud ORAL SCH (08:45)
--- NOTE | 2019-12-22 11:49 | Infectious Diseases Prog Note ---
Assessment/Plan Assessment/Plan A 1. COVID 19 pneumonia 2. + blood cultures with coag neg staph likely contaminated 3. CVA 4. hypertension 5. dementia 6. Anemia 7. Cachexia P 1. continue hydroxychloroquine 2 more days 2.. continue isolation Subjective ROS Limited/Unobtainable: Yes Constitutional: Denies: fever Allergies: Coded Allergies: No Known Allergies (Unverified , 08/26/18) Objective Vital Signs Last 24 Hour Vital Signs Date Time Temp Pulse Resp B/P (MAP) Pulse Ox O2 Delivery O2 Flow Rate FiO2 12/22/19 09:00 Room Air 12/22/19 09:00 82 118/56 12/22/19 08:00 97.5 82 18 118/56 (76) 98 12/22/19 04:00 97.4 79 19 137/78 (97) 97 12/22/19 00:00 97.5 86 17 136/74 (94) 97 12/21/19 21:00 Room Air 12/21/19 20:00 97.4 80 19 103/59 (74) 97 12/21/19 16:00 97.7 67 18 103/54 (70) 97 12/21/19 12:00 97.3 72 18 113/59 (77) 98 Height (Feet): 5 Height (Inches): 9.00 Weight (Pounds): 91 General Appearance: cachetic HEENT: mucous membranes moist Respiratory/Chest: lungs clear Cardiovascular: normal rate Abdomen: soft, non tender Extremities: no edema Neurologic/Psychiatric: aphasia Laboratory Tests Test 12/22/19 05:33 White Blood Count 10.5 K/UL (4.8-10.8) Red Blood Count 3.78 M/UL (4.70-6.10) L Hemoglobin 10.7 G/DL (14.2-18.0) L Hematocrit 32.2 % (42.0-52.0) L Mean Corpuscular Volume 85 FL (80-99) Mean Corpuscular Hemoglobin 28.4 PG (27.0-31.0) Mean Corpuscular Hemoglobin Concent 33.3 G/DL (32.0-36.0) Red Cell Distribution Width 12.8 % (11.6-14.8) Platelet Count 255 K/UL (150-450) Mean Platelet Volume 7.1 FL (6.5-10.1) Neutrophils (%) (Auto) 82.5 % (45.0-75.0) H Lymphocytes (%) (Auto) 9.0 % (20.0-45.0) L Monocytes (%) (Auto) 6.2 % (1.0-10.0) Eosinophils (%) (Auto) 1.7 % (0.0-3.0) Basophils (%) (Auto) 0.5 % (0.0-2.0) Sodium Level 145 MMOL/L (136-145) Potassium Level 4.4 MMOL/L (3.5-5.1) Chloride Level 103 MMOL/L (98-107) Carbon Dioxide Level 33 MMOL/L (21-32) H Anion Gap 9 mmol/L (5-15) Blood Urea Nitrogen 16 mg/dL (7-18) Creatinine 0.9 MG/DL (0.55-1.30) Estimat Glomerular Filtration Rate > 60 mL/min (>60) Glucose Level 92 MG/DL (74-106) Calcium Level 7.3 MG/DL (8.5-10.1) L Magnesium Level 2.0 MG/DL (1.8-2.4) Current Medications Medications (Trade) Dose Ordered Sig/Luca Route PRN Reason Start Time Stop Time Status Last Admin Dose Admin Acetaminophen (Tylenol) 650 mg Q4H PRN ORAL MILD/TEMP 12/17/19 07:30 01/16/20 07:29 12/18/19 09:13 Amlodipine Besylate (Norvasc) 5 mg DAILY ORAL 12/17/19 09:00 01/16/20 08:59 12/22/19 09:00 Aspirin (Ecotrin) 81 mg DAILY ORAL 12/17/19 09:00 01/31/20 08:59 12/22/19 08:45 Atorvastatin Calcium (Lipitor) 10 mg BEDTIME ORAL 12/17/19 21:00 03/16/20 20:59 12/21/19 22:16 Calcitriol (Rocatrol) 0.25 mcg DAILY ORAL 12/17/19 09:00 03/16/20 08:59 12/22/19 08:45 Cyanocobalamin (Vitamin B-12 Tab) 100 mcg DAILY ORAL 12/17/19 09:00 01/16/20 08:59 12/22/19 08:45 Docusate Sodium (Colace) 100 mg DAILY ORAL 12/17/19 09:00 01/16/20 08:59 12/22/19 08:45 Folic Acid (Folate) 1 mg DAILY ORAL 12/17/19 09:00 01/16/20 08:59 12/22/19 08:45 Hydroxychloroquine Sulfate (Plaquenil) 200 mg Q12HR ORAL 12/21/19 09:00 12/24/19 21:01 12/22/19 08:45 Magnesium Hydroxide (Mom) 30 ml DAILY ORAL 12/17/19 09:00 01/16/20 08:59 12/22/19 08:45 Multivitamins (Multivitamins) 1 tab DAILY ORAL 12/17/19 09:00 01/16/20 08:59 12/22/19 08:46 Risperidone (RisperDAL) 1 mg Q6H PRN ORAL Agitation 12/20/19 14:45 02/03/20 14:44 Sodium Chloride 1,000 ml @ 75 mls/hr [id number] IV 12/17/19 08:00 01/16/20 07:59 12/22/19 08:45 Ji Black MD December 22, 2019 11:49
[2019-12-22 12:00] VITALS: BP 111/50
--- NOTE | 2019-12-22 15:10 | NUR ---
NURSE NOTES:WOUND CARE NOTES:Report received from Primary Nurse Eyad that pt noted to have tourniquet around L Brachial . Upon removal pt noted to have red raised linear ring circumference of L brachial. Skin Barrier applied to red area . Nurse instructed to monitor area and will follow-up as needed .
[2019-12-22 16:00] VITALS: BP 110/61
--- NOTE | 2019-12-22 19:30 | NUR ---
HAND-OFF: Report given to Loretta CASON.
--- NOTE | 2019-12-22 19:31 | NUR ---
NURSE NOTES: Received patient in bed. A&OX1,confused, non verbal. IV sites are patent and intact. Mccollum draining well by gravity, yellow urine noted. Bed in lowest position. Call light within reach. Will continue to monitor.
[2019-12-22 20:00] VITALS: BP 116/56
--- NOTE | 2019-12-22 21:45 | Progress Note ---
DATE: 12/22/2019 SUBJECTIVE: This is a 69-year-old male currently in bed, comfortable. PHYSICAL EXAMINATION: VITAL SIGNS: Blood pressure 111/50, pulse 74, no fever. CHEST: Bilateral decreased breath sounds. CARDIOVASCULAR: Regular rhythm. ABDOMEN: Soft. EXTREMITIES: CCE. LABORATORY DATA: White counts are 11,000, hemoglobin is 11, hematocrit 32, platelets are normal. Chemistry panel, BUN 16 and creatinine 0.9. ASSESSMENT: 1. COVID pneumonia. 2. Fever. 3. Failure to thrive. 4. Weight loss. PLAN: Continue current treatment. Continue isolation. ID is on consult. Sandeep Gonzales M.D. DR: Vee JOB#: [id number] CC:
[2019-12-23] VITALS: BP 143/64
--- NOTE | 2019-12-23 02:30 | Progress Note ---
DATE: 12/22/2019 SUBJECTIVE: The patient is in bed, has low energy. Continues to be confused and has episodes of agitation, poor insight, difficulty to manage. At times, required p.r.n. administration. MENTAL STATUS EXAMINATION: Alert and oriented to times and self. Mood is agitated. Affect is flat. Thought process is disorganized. Thought content, no suicidal or homicidal ideation. Cognition is impaired. Insight and judgment impaired. ASSESSMENT: 1. Acute encephalopathy. 2. Dementia. PLAN: 1. Risperidone p.r.n. 2. Discussed with the nurse. Kelby Flores M.D. DR: Cyril JOB#: [id number] CC:
--- NOTE | 2019-12-23 07:46 | NUR ---
HAND-OFF: Report given to Mari CASON.
[2019-12-23 08:00] VITALS: BP 110/56
--- NOTE | 2019-12-23 08:00 | NUR ---
NURSE NOTES: Report received from Loretta Tan RN. Seen on rounds, AxOx1, not in distress, tolerating room air, afebrile. PIV on right forearm and left forearm patent and infusing IVF as ordered. Mcclolum cath secured and draining well. Bed low and locked, siderails up x3, zone alarms on 1, will continue to monitor and implement plan of care.
[2019-12-23] MEDS: Vitamin B-12 100mcg tab ORAL SCH (09:16)
[2019-12-23] MEDS: Docusate 100mg cap ORAL SCH (09:16)
[2019-12-23] MEDS: Calcitriol 0.25mcg Cap ORAL SCH (09:16)
[2019-12-23] MEDS: Aspirin EC 81mg tab ORAL SCH (09:17)
[2019-12-23] MEDS: Milk of Magnesia 30ml Ud ORAL SCH (09:17)
--- NOTE | 2019-12-23 10:51 | Infectious Diseases Prog Note ---
Assessment/Plan Assessment/Plan antibiotics : hydroxychloroquine A 1. COVID 19 pneumonia 2. + blood cultures with coag neg staph likely contaminated 3. CVA 4. hypertension 5. dementia P 1. continue hydroxychloroquine 1 more day 2. will follow up cultures 3. continue isolation Subjective ROS Limited/Unobtainable: Yes Allergies: Coded Allergies: No Known Allergies (Unverified , 08/26/18) Objective Vital Signs Last 24 Hour Vital Signs Date Time Temp Pulse Resp B/P (MAP) Pulse Ox O2 Delivery O2 Flow Rate FiO2 12/23/19 09:17 79 143/64 12/23/19 08:00 96.4 72 29 110/56 (74) 98 12/23/19 04:00 20 12/23/19 00:00 98.1 79 20 143/64 (90) 93 12/22/19 21:00 Room Air 12/22/19 20:00 98.7 69 18 116/56 (76) 95 12/22/19 16:00 98.1 72 18 110/61 (77) 95 12/22/19 12:00 97.3 74 18 111/50 (70) 94 Height (Feet): 5 Height (Inches): 9.00 Weight (Pounds): 91 Current Medications Medications (Trade) Dose Ordered Sig/Luca Route PRN Reason Start Time Stop Time Status Last Admin Dose Admin Acetaminophen (Tylenol) 650 mg Q4H PRN ORAL MILD/TEMP 12/17/19 07:30 01/16/20 07:29 12/18/19 09:13 Amlodipine Besylate (Norvasc) 5 mg DAILY ORAL 12/17/19 09:00 01/16/20 08:59 12/23/19 09:17 Aspirin (Ecotrin) 81 mg DAILY ORAL 12/17/19 09:00 01/31/20 08:59 12/23/19 09:17 Atorvastatin Calcium (Lipitor) 10 mg BEDTIME ORAL 12/17/19 21:00 03/16/20 20:59 12/22/19 20:55 Calcitriol (Rocatrol) 0.25 mcg DAILY ORAL 12/17/19 09:00 03/16/20 08:59 12/23/19 09:16 Cyanocobalamin (Vitamin B-12 Tab) 100 mcg DAILY ORAL 12/17/19 09:00 01/16/20 08:59 12/23/19 09:16 Docusate Sodium (Colace) 100 mg DAILY ORAL 12/17/19 09:00 01/16/20 08:59 12/23/19 09:16 Folic Acid (Folate) 1 mg DAILY ORAL 12/17/19 09:00 01/16/20 08:59 12/23/19 09:16 Hydroxychloroquine Sulfate (Plaquenil) 200 mg Q12HR ORAL 12/21/19 09:00 12/24/19 21:01 12/23/19 09:15 Magnesium Hydroxide (Mom) 30 ml DAILY ORAL 12/17/19 09:00 01/16/20 08:59 12/23/19 09:17 Multivitamins (Multivitamins) 1 tab DAILY ORAL 12/17/19 09:00 01/16/20 08:59 12/23/19 09:17 Risperidone (RisperDAL) 1 mg Q6H PRN ORAL Agitation 12/20/19 14:45 02/03/20 14:44 Sodium Chloride 1,000 ml @ 75 mls/hr [id number] IV 12/17/19 08:00 01/16/20 07:59 12/22/19 20:56 Brian Salmeron MD December 23, 2019 10:51
--- NOTE | 2019-12-23 11:06 | NUR ---
RD ASSESSMENT & RECOMMENDATIONS SEE CARE ACTIVITY FOR COMPLETE ASSESSMENT DAILY ESTIMATED NEEDS: Needs based on Underweight/ 47kg 30-35 kcals/kg 6315-9684 total kcals 1-1.5 g protein/kg 47-70 g total protein 25-30 mL/kg 3737-9784 total fluid mLs NUTRITION DIAGNOSIS: Increased kcal/prot needs R/T underweight status as evidenced by pt @80%IBW w/ BMI of 17.9 CURRENT DIET:Regular ms finely chopped w/ ensure enlive TID PO DIET RECOMMENDATIONS: Liberalized REGULAR (Texture per COLLECTOR) ADDITIONAL RECOMMENDATIONS: * Per SNF: HT=64" MG=020ssr (11/23/19) -> rec weekly wt monitoring given underweight status * COLLECTOR evaluation for appropriate texture * Ensure Enlive TID w/ meals w/ diet order * Monitor lytes, replete as needed * If tolerated, rec DUGLSA FRUIT PUNCH BID to maintain skin integrity -> Rec WC eval
[2019-12-23 12:00] VITALS: BP 117/56
--- NOTE | 2019-12-23 15:51 | NUR ---
CASE MANAGEMENT:REVIEW SI;COVID-19 PNEUMONIA. ENCEPHALOPATHY. FTT. 98.7 83 20 143/64 93% ON RA IS;PLAQUENIL PO Q12 HRS NORVASC PO QD ASA PO QD FOLATE PO QD IVF NS @ 75 ML/HR CALCITROL PO QD MED SURG STATUS DCP;FROM [facility]
[2019-12-23 16:00] VITALS: BP 111/54
--- NOTE | 2019-12-23 19:15 | NUR ---
NURSE NOTES: RECEIVED PATIENT FROM AI Honeycutt RN. PATIENT IS AWAKE, AAOX1, ON ROOM AIR, NO ACUTE DISTRESS NOTED. YIN CATH INTACT AND PATENT, DRAINING WELL. YIN ANCHOR PRESENT. PIV INTACT AND PATENT. BED IS LOCKED AND LOW, BED ALARMS ACTIVE, SIDE RAILS UP X2 AND CALL LIGHT IS WITHIN REACH. WILL CONTINUE TO MONITOR.
--- NOTE | 2019-12-23 19:37 | NUR ---
HAND-OFF: Report given to Danii RN.
[2019-12-23 20:00] VITALS: BP 122/53
--- NOTE | 2019-12-24 00:02 | Psych Consult Progress Note ---
Psychiatry Progress Note Psychiatry Progress Note Medications Current Medications Medications (Trade) Dose Ordered Sig/Luca Route PRN Reason Start Time Stop Time Status Last Admin Dose Admin Acetaminophen (Tylenol) 650 mg Q4H PRN ORAL MILD/TEMP 12/17/19 07:30 01/16/20 07:29 12/18/19 09:13 Amlodipine Besylate (Norvasc) 5 mg DAILY ORAL 12/17/19 09:00 01/16/20 08:59 12/23/19 09:17 Aspirin (Ecotrin) 81 mg DAILY ORAL 12/17/19 09:00 01/31/20 08:59 12/23/19 09:17 Atorvastatin Calcium (Lipitor) 10 mg BEDTIME ORAL 12/17/19 21:00 03/16/20 20:59 12/23/19 20:58 Calcitriol (Rocatrol) 0.25 mcg DAILY ORAL 12/17/19 09:00 03/16/20 08:59 12/23/19 09:16 Cyanocobalamin (Vitamin B-12 Tab) 100 mcg DAILY ORAL 12/17/19 09:00 01/16/20 08:59 12/23/19 09:16 Docusate Sodium (Colace) 100 mg DAILY ORAL 12/17/19 09:00 01/16/20 08:59 12/23/19 09:16 Folic Acid (Folate) 1 mg DAILY ORAL 12/17/19 09:00 01/16/20 08:59 12/23/19 09:16 Hydroxychloroquine Sulfate (Plaquenil) 200 mg Q12HR ORAL 12/21/19 09:00 12/24/19 21:01 12/23/19 20:59 Magnesium Hydroxide (Mom) 30 ml DAILY ORAL 12/17/19 09:00 01/16/20 08:59 12/23/19 09:17 Multivitamins (Multivitamins) 1 tab DAILY ORAL 12/17/19 09:00 01/16/20 08:59 12/23/19 09:17 Risperidone (RisperDAL) 1 mg Q6H PRN ORAL Agitation 12/20/19 14:45 02/03/20 14:44 Sodium Chloride 1,000 ml @ 75 mls/hr [id number] IV 12/17/19 08:00 01/16/20 07:59 5/8/20 12:00 Allergies: Coded Allergies: No Known Allergies (Unverified , 08/26/18) Objective Data Height (Feet): 5 Height (Inches): 9.00 Weight (Pounds): 91 Assessment/Plan Problem List: (1) Metabolic encephalopathy Assessment & Plan: dementia ICD Codes: G93.41 - Metabolic encephalopathy SNOMED: 38491012 Status: stable Assessment/Plan: Kelby Garcia rn, MD December 24, 2019 00:02
--- NOTE | 2019-12-24 02:00 | Progress Note ---
DATE: 12/23/2019 SUBJECTIVE: This is an elderly male, currently in bed, comfortable. Doing fine. No distress. In isolation for COVID positive. OBJECTIVE: VITAL SIGNS: Stable. CHEST: Bilaterally clear. CARDIOVASCULAR: Regular rhythm. ABDOMEN: Soft. EXTREMITIES: CCE. ASSESSMENT: 1. Failure to thrive. 2. Dehydration. 3. UTI. 4. COVID positive. PLAN: 1. Continue current treatment. 2. Continue antibiotics. 3. Continue isolation. Sandeep Gonzales M.D. DR: RACHEL JOB#: [id number] CC:
[2019-12-24 04:00] VITALS: BP 129/56
--- NOTE | 2019-12-24 07:19 | NUR ---
NURSE NOTES: Report received from Danii, RN. Seen on rounds, AxOx1, disoriented, not in distress, tolerating room air, afebrile. PIV on left forearm patent and infusing IVF as ordered. Mccollum cath secured and draining well. SCD's on. Isolation precautions maintained. Bed low and locked, siderails up x3, zone alarms on 1, will continue to monitor and implement plan of care.
--- NOTE | 2019-12-24 07:31 | NUR ---
HAND-OFF: Report given to KAMLA Guerra.
[2019-12-24 08:00] VITALS: BP 108/68
[2019-12-24] MEDS: Calcitriol 0.25mcg Cap ORAL SCH (08:28)
[2019-12-24] MEDS: Aspirin EC 81mg tab ORAL SCH (08:28)
[2019-12-24] MEDS: Vitamin B-12 100mcg tab ORAL SCH (08:28)
[2019-12-24] MEDS: Milk of Magnesia 30ml Ud ORAL SCH (08:29)
[2019-12-24] MEDS: Docusate 100mg cap ORAL SCH (08:29)
--- NOTE | 2019-12-24 11:15 | Infectious Diseases Prog Note ---
Assessment/Plan Assessment/Plan antibiotics : hydroxychloroquine A 1. COVID 19 pneumonia 2. + blood cultures with coag neg staph likely contaminated 3. CVA 4. hypertension 5. dementia P 1. d/c hydroxychloroquine 2. will follow up cultures 3. continue isolation Subjective ROS Limited/Unobtainable: Yes Allergies: Coded Allergies: No Known Allergies (Unverified , 08/26/18) Objective Vital Signs Last 24 Hour Vital Signs Date Time Temp Pulse Resp B/P (MAP) Pulse Ox O2 Delivery O2 Flow Rate FiO2 12/24/19 09:00 Room Air 12/24/19 08:29 69 108/68 12/24/19 08:00 97.9 75 18 108/68 (81) 99 12/24/19 04:00 97.6 81 20 129/56 (80) 98 12/23/19 21:00 Room Air 12/23/19 20:00 98.0 74 20 122/53 (76) 93 12/23/19 16:00 98.4 77 19 111/54 (73) 99 12/23/19 12:00 96.8 83 19 117/56 (76) 98 Height (Feet): 5 Height (Inches): 9.00 Weight (Pounds): 91 Current Medications Medications (Trade) Dose Ordered Sig/Luca Route PRN Reason Start Time Stop Time Status Last Admin Dose Admin Acetaminophen (Tylenol) 650 mg Q4H PRN ORAL MILD/TEMP 12/17/19 07:30 01/16/20 07:29 12/18/19 09:13 Amlodipine Besylate (Norvasc) 5 mg DAILY ORAL 12/17/19 09:00 01/16/20 08:59 12/23/19 09:17 Aspirin (Ecotrin) 81 mg DAILY ORAL 12/17/19 09:00 01/31/20 08:59 12/24/19 08:28 Atorvastatin Calcium (Lipitor) 10 mg BEDTIME ORAL 12/17/19 21:00 03/16/20 20:59 12/23/19 20:58 Calcitriol (Rocatrol) 0.25 mcg DAILY ORAL 12/17/19 09:00 03/16/20 08:59 12/24/19 08:28 Cyanocobalamin (Vitamin B-12 Tab) 100 mcg DAILY ORAL 12/17/19 09:00 01/16/20 08:59 12/24/19 08:28 Docusate Sodium (Colace) 100 mg DAILY ORAL 12/17/19 09:00 01/16/20 08:59 12/24/19 08:29 Folic Acid (Folate) 1 mg DAILY ORAL 12/17/19 09:00 01/16/20 08:59 12/24/19 08:28 Hydroxychloroquine Sulfate (Plaquenil) 200 mg Q12HR ORAL 12/21/19 09:00 12/24/19 21:01 12/24/19 08:28 Magnesium Hydroxide (Mom) 30 ml DAILY ORAL 12/17/19 09:00 01/16/20 08:59 12/24/19 08:29 Multivitamins (Multivitamins) 1 tab DAILY ORAL 12/17/19 09:00 01/16/20 08:59 12/24/19 08:28 Risperidone (RisperDAL) 1 mg Q6H PRN ORAL Agitation 12/20/19 14:45 02/03/20 14:44 Sodium Chloride 1,000 ml @ 75 mls/hr [id number] IV 12/17/19 08:00 01/16/20 07:59 12/24/19 00:08 Brian Salmeron MD December 24, 2019 11:15
[2019-12-24 12:00] VITALS: BP 106/77
[2019-12-24 16:00] VITALS: BP 110/56
[2019-12-24] MEDS ORDERED: Haloperidol 5mg/ml Inj IM PRN (17:00)
--- NOTE | 2019-12-24 17:00 | NUR ---
NURSE NOTES: Patient extremely agitated, attempted to get out of bed, redirection provided but patient remained non-compliant, constant reinforcement needed. Charge nurse relayed to Dr. Flores. Orders received for bilateral soft wrist restraints.
--- NOTE | 2019-12-24 19:20 | NUR ---
HAND-OFF: Report given to Mecca CASON. Endorsed that patient is fall risk and attempted to get out of bed today, restraints applied. Good circulation noted, pulses palpable.
--- NOTE | 2019-12-24 19:22 | NUR ---
NURSE NOTES: Patient in bed, confused. On room air with no signs of distress or SOB. IV intact and patent. Mccollum in place and draining well. Bilat soft wrist restraints in progress. Bed locked and in lowest position. Bed alarm activated. Will continue to monitor the patient.
[2019-12-24 20:00] VITALS: BP 135/57
[2019-12-24] MEDS ORDERED: NS Irrig 2000ml IRRIG ONE (21:22)
[2019-12-24] MEDS ORDERED: NS Irrig 1000ml ONE (21:22)
[2019-12-24] MEDS ORDERED: NS Irrig 4000ml IRRIG ONE (21:22)
[2019-12-24] MEDS ORDERED: D5 1/2NS 1000ml IV ONE (21:22)
[2019-12-24] MEDS ORDERED: 1/2 NS 1000ml IV ONE (21:22)
--- NOTE | 2019-12-24 22:46 | Psych Consult Progress Note ---
Psychiatry Progress Note Psychiatry Progress Note Subjective agitated coming out of the room confused covid Medications Current Medications Medications (Trade) Dose Ordered Sig/Luca Route PRN Reason Start Time Stop Time Status Last Admin Dose Admin Acetaminophen (Tylenol) 650 mg Q4H PRN ORAL MILD/TEMP 12/17/19 07:30 01/16/20 07:29 12/18/19 09:13 Amlodipine Besylate (Norvasc) 5 mg DAILY ORAL 12/17/19 09:00 01/16/20 08:59 12/23/19 09:17 Aspirin (Ecotrin) 81 mg DAILY ORAL 12/17/19 09:00 01/31/20 08:59 12/24/19 08:28 Atorvastatin Calcium (Lipitor) 10 mg BEDTIME ORAL 12/17/19 21:00 03/16/20 20:59 12/24/19 20:45 Calcitriol (Rocatrol) 0.25 mcg DAILY ORAL 12/17/19 09:00 03/16/20 08:59 12/24/19 08:28 Cyanocobalamin (Vitamin B-12 Tab) 100 mcg DAILY ORAL 12/17/19 09:00 01/16/20 08:59 12/24/19 08:28 Docusate Sodium (Colace) 100 mg DAILY ORAL 12/17/19 09:00 01/16/20 08:59 12/24/19 08:29 Folic Acid (Folate) 1 mg DAILY ORAL 12/17/19 09:00 01/16/20 08:59 12/24/19 08:28 Haloperidol Lactate (Haldol) 5 mg Q6H PRN IM Agitation 12/24/19 17:00 02/07/20 16:59 Magnesium Hydroxide (Mom) 30 ml DAILY ORAL 12/17/19 09:00 01/16/20 08:59 12/24/19 08:29 Multivitamins (Multivitamins) 1 tab DAILY ORAL 12/17/19 09:00 01/16/20 08:59 12/24/19 08:28 Risperidone (RisperDAL) 1 mg Q6H PRN ORAL Agitation 12/20/19 14:45 02/03/20 14:44 12/24/19 17:54 Sodium Chloride 1,000 ml @ 75 mls/hr [id number] IV 12/17/19 08:00 01/16/20 07:59 12/24/19 20:54 Neurological/Psychiatric: Reports: anxiety, depressed, emotional problems Allergies: Coded Allergies: No Known Allergies (Unverified , 08/26/18) Objective Data Height (Feet): 5 Height (Inches): 9.00 Weight (Pounds): 91 Additional Comments: Alert and oriented to times and self. Mood is agitated. Affect is flat. Thought process is disorganized. Thought content, no suicidal or homicidal ideation. Cognition is impaired. Insight and judgment impaired. Assessment/Plan Problem List: (1) Metabolic encephalopathy Assessment & Plan: dementia ICD Codes: G93.41 - Metabolic encephalopathy SNOMED: [id number] Status: stable Assessment/Plan: Kelby Hoskins rn, MD December 24, 2019 22:46
[2019-12-25] VITALS: BP 128/69
--- NOTE | 2019-12-25 01:00 | Progress Note ---
DATE: 12/24/2019 SUBJECTIVE: This is an elderly male, came with COVID positive, failure to thrive, dehydration. The patient is currently . He is in isolation for . OBJECTIVE: VITAL SIGNS: Stable. CHEST: Bilateral decreased breath sounds. CARDIOVASCULAR: Regular rhythm. No gallop. No murmur. ABDOMEN: Soft. Positive bowel sounds, nontender. EXTREMITIES: CCE. ASSESSMENT: 1. COVID pneumonia. 2. Failure to thrive. 3. Dehydration. 4. Dementia. PLAN: 1. Continue antibiotic. 2. Continue bronchodilator treatment. 3. Continue isolation and monitoring. Sandeep Gonzales M.D. DR: KALEIGH JOB#: [id number] CC:
[2019-12-25 03:59] VITALS: BP 130/65
--- NOTE | 2019-12-25 07:28 | NUR ---
HAND-OFF: Report given to KAMLA Fraire.
[2019-12-25 08:00] VITALS: BP 141/63
--- NOTE | 2019-12-25 08:00 | NUR ---
NURSE NOTES: received patient in bed, on bilateral soft wrist restraints, skin intact below restraints, hands acyanotic, bilateral radial pulse (+). No respiratory distress noted. Patient non-verbal. Call light within easy reach, siderails up x3, bed locked at the lowest position possible. On Mccollum catheter for urinary retention. LFA IV access, receives IVF. Will continue to monitor patient and follow up with the plan of care.
[2019-12-25] MEDS: Milk of Magnesia 30ml Ud ORAL SCH (09:48)
[2019-12-25] MEDS: Calcitriol 0.25mcg Cap ORAL SCH (09:48)
[2019-12-25] MEDS: Docusate 100mg cap ORAL SCH (09:49)
[2019-12-25] MEDS: Aspirin EC 81mg tab ORAL SCH (09:49)
[2019-12-25] MEDS: Vitamin B-12 100mcg tab ORAL SCH (09:49)
[2019-12-25 12:00] VITALS: BP 119/79
--- NOTE | 2019-12-25 14:51 | Infectious Diseases Prog Note ---
Assessment/Plan Assessment/Plan A 1. COVID 19 pneumonia 2. + blood cultures with coag neg staph likely contaminated 3. CVA 4. hypertension 5. dementia 6. Anemia 7. Cachexia P 1. Finished hydroxychloroquine 2.. continue isolation Subjective ROS Limited/Unobtainable: Yes Neurologic: Reports: confusion, other - on restraint Allergies: Coded Allergies: No Known Allergies (Unverified , 08/26/18) Objective Vital Signs Last 24 Hour Vital Signs Date Time Temp Pulse Resp B/P (MAP) Pulse Ox O2 Delivery O2 Flow Rate FiO2 12/25/19 12:00 98.4 80 17 119/79 (92) 98 12/25/19 09:48 72 141/63 12/25/19 09:00 Room Air 12/25/19 08:00 98.1 72 17 141/63 (89) 99 12/25/19 03:59 97.8 70 18 130/65 (86) 95 12/25/19 00:00 97.0 67 20 128/69 (88) 96 12/24/19 20:00 97.7 93 22 135/57 (83) 93 12/24/19 18:21 Room Air 12/24/19 16:00 98.2 83 17 110/56 (74) 95 Height (Feet): 5 Height (Inches): 9.00 Weight (Pounds): 91 General Appearance: no acute distress HEENT: mucous membranes moist Cardiovascular: normal rate Abdomen: soft, non tender Extremities: no edema Neurologic/Psychiatric: alert, disoriented Current Medications Medications (Trade) Dose Ordered Sig/Luca Route PRN Reason Start Time Stop Time Status Last Admin Dose Admin Acetaminophen (Tylenol) 650 mg Q4H PRN ORAL MILD/TEMP 12/17/19 07:30 01/16/20 07:29 12/18/19 09:13 Amlodipine Besylate (Norvasc) 5 mg DAILY ORAL 12/17/19 09:00 01/16/20 08:59 12/25/19 09:48 Aspirin (Ecotrin) 81 mg DAILY ORAL 12/17/19 09:00 01/31/20 08:59 12/25/19 09:49 Atorvastatin Calcium (Lipitor) 10 mg BEDTIME ORAL 12/17/19 21:00 03/16/20 20:59 12/24/19 20:45 Calcitriol (Rocatrol) 0.25 mcg DAILY ORAL 12/17/19 09:00 03/16/20 08:59 12/25/19 09:48 Cyanocobalamin (Vitamin B-12 Tab) 100 mcg DAILY ORAL 12/17/19 09:00 01/16/20 08:59 12/25/19 09:49 Docusate Sodium (Colace) 100 mg DAILY ORAL 12/17/19 09:00 01/16/20 08:59 12/25/19 09:49 Folic Acid (Folate) 1 mg DAILY ORAL 12/17/19 09:00 01/16/20 08:59 12/25/19 09:49 Haloperidol Lactate (Haldol) 5 mg Q6H PRN IM Agitation 12/24/19 17:00 02/07/20 16:59 Magnesium Hydroxide (Mom) 30 ml DAILY ORAL 12/17/19 09:00 01/16/20 08:59 12/25/19 09:48 Multivitamins (Multivitamins) 1 tab DAILY ORAL 12/17/19 09:00 01/16/20 08:59 12/25/19 09:49 Risperidone (RisperDAL) 1 mg Q6H PRN ORAL Agitation 12/20/19 14:45 02/03/20 14:44 12/24/19 17:54 Sodium Chloride 1,000 ml @ 75 mls/hr [id number] IV 12/17/19 08:00 01/16/20 07:59 12/25/19 10:10 Ji Black MD December 25, 2019 14:51
[2019-12-25 16:00] VITALS: BP 127/79
--- NOTE | 2019-12-25 19:57 | NUR ---
HAND-OFF: Report given to KAMLA Crouch.
[2019-12-25 19:58] VITALS: BP 104/79
--- NOTE | 2019-12-25 23:34 | Psych Consult Progress Note ---
Psychiatry Progress Note Psychiatry Progress Note Medications Current Medications Medications (Trade) Dose Ordered Sig/Luca Route PRN Reason Start Time Stop Time Status Last Admin Dose Admin Acetaminophen (Tylenol) 650 mg Q4H PRN ORAL MILD/TEMP 12/17/19 07:30 01/16/20 07:29 12/18/19 09:13 Amlodipine Besylate (Norvasc) 5 mg DAILY ORAL 12/17/19 09:00 01/16/20 08:59 12/25/19 09:48 Aspirin (Ecotrin) 81 mg DAILY ORAL 12/17/19 09:00 01/31/20 08:59 12/25/19 09:49 Atorvastatin Calcium (Lipitor) 10 mg BEDTIME ORAL 12/17/19 21:00 03/16/20 20:59 12/25/19 22:31 Calcitriol (Rocatrol) 0.25 mcg DAILY ORAL 12/17/19 09:00 03/16/20 08:59 12/25/19 09:48 Cyanocobalamin (Vitamin B-12 Tab) 100 mcg DAILY ORAL 12/17/19 09:00 01/16/20 08:59 12/25/19 09:49 Docusate Sodium (Colace) 100 mg DAILY ORAL 12/17/19 09:00 01/16/20 08:59 12/25/19 09:49 Folic Acid (Folate) 1 mg DAILY ORAL 12/17/19 09:00 01/16/20 08:59 12/25/19 09:49 Haloperidol Lactate (Haldol) 5 mg Q6H PRN IM Agitation 12/24/19 17:00 02/07/20 16:59 Magnesium Hydroxide (Mom) 30 ml DAILY ORAL 12/17/19 09:00 01/16/20 08:59 12/25/19 09:48 Multivitamins (Multivitamins) 1 tab DAILY ORAL 12/17/19 09:00 01/16/20 08:59 12/25/19 09:49 Risperidone (RisperDAL) 1 mg Q6H PRN ORAL Agitation 12/20/19 14:45 02/03/20 14:44 12/24/19 17:54 Sodium Chloride 1,000 ml @ 75 mls/hr [id number] IV 12/17/19 08:00 01/16/20 07:59 5/10/20 10:10 Neurological/Psychiatric: Reports: anxiety, depressed, emotional problems Allergies: Coded Allergies: No Known Allergies (Unverified , 08/26/18) Objective Data Height (Feet): 5 Height (Inches): 9.00 Weight (Pounds): 91 General Appearance: alert, confused, agitated Additional Comments: oriented to times and self. Mood is agitated. Affect is flat. Thought process is disorganized. Thought content, no suicidal or homicidal ideation. Cognition is impaired. Insight and judgment impaired. ASSESSMENT: 1. Acute encephalopathy. 2. Dementia. PLAN: 1. Risperidone p.r.n. 2. Discussed with the nurse. Assessment/Plan Problem List: (1) Metabolic encephalopathy Assessment & Plan: dementia ICD Codes: G93.41 - Metabolic encephalopathy SNOMED: [id number] Status: stable Assessment/Plan: vicki samuels rn Kelby Romero MD December 25, 2019 23:34
[2019-12-26] VITALS: BP 109/77
[2019-12-26 04:00] VITALS: BP 110/73
--- NOTE | 2019-12-26 07:38 | NUR ---
pt is in the bed awake. respiartiocarlylen si even and un,ab red on room air. no facila grimaing for pain noted. no coulomb noted. place call light within reach. Addendum: 12/26/19 at 0746 by Franco Valles RN pt is in the bed awake. respiration is even and unlabored on room air. no facial grimacing for pain noted. no coughing noted at this time. place call light within reach.
--- NOTE | 2019-12-26 07:38 | NUR ---
HAND-OFF: Report given to KAMLA Spence.
[2019-12-26 08:00] VITALS: BP_SYST 113; BP_SYST 97; BP_DIAS 56; BP_DIAS 70
[2019-12-26] MEDS: Aspirin EC 81mg tab ORAL SCH (09:00)
[2019-12-26] MEDS: Milk of Magnesia 30ml Ud ORAL SCH (09:45)
[2019-12-26] MEDS: Calcitriol 0.25mcg Cap ORAL SCH (09:46)
[2019-12-26] MEDS: Vitamin B-12 100mcg tab ORAL SCH (09:46)
[2019-12-26] MEDS: Docusate 100mg cap ORAL SCH (09:46)
--- NOTE | 2019-12-26 11:22 | Infectious Diseases Prog Note ---
Assessment/Plan Assessment/Plan antibiotics : none A 1. COVID 19 pneumonia s/p rx 2. + blood cultures with coag neg staph likely contaminated 3. CVA 4. hypertension 5. dementia P 1. observe off antibiotics 2. will follow up cultures 3. continue isolation Subjective ROS Limited/Unobtainable: Yes Allergies: Coded Allergies: No Known Allergies (Unverified , 08/26/18) Objective Vital Signs Last 24 Hour Vital Signs Date Time Temp Pulse Resp B/P (MAP) Pulse Ox O2 Delivery O2 Flow Rate FiO2 12/26/19 09:00 Room Air 12/26/19 09:00 60 97/56 12/26/19 08:00 98.3 60 18 97/56 (70) 96 12/26/19 04:00 98.5 90 20 110/73 (85) 95 12/26/19 00:00 98.6 92 20 109/77 (88) 95 12/25/19 20:06 Room Air 12/25/19 19:58 98.9 99 20 104/79 (87) 95 12/25/19 16:00 98.6 63 19 127/79 (95) 97 12/25/19 12:00 98.4 80 17 119/79 (92) 98 Height (Feet): 5 Height (Inches): 9.00 Weight (Pounds): 91 Current Medications Medications (Trade) Dose Ordered Sig/Luca Route PRN Reason Start Time Stop Time Status Last Admin Dose Admin Acetaminophen (Tylenol) 650 mg Q4H PRN ORAL MILD/TEMP 12/17/19 07:30 01/16/20 07:29 12/18/19 09:13 Amlodipine Besylate (Norvasc) 5 mg DAILY ORAL 12/17/19 09:00 01/16/20 08:59 12/25/19 09:48 Aspirin (Ecotrin) 81 mg DAILY ORAL 12/17/19 09:00 01/31/20 08:59 12/26/19 09:00 Atorvastatin Calcium (Lipitor) 10 mg BEDTIME ORAL 12/17/19 21:00 03/16/20 20:59 12/25/19 22:31 Calcitriol (Rocatrol) 0.25 mcg DAILY ORAL 12/17/19 09:00 03/16/20 08:59 12/26/19 09:46 Cyanocobalamin (Vitamin B-12 Tab) 100 mcg DAILY ORAL 12/17/19 09:00 01/16/20 08:59 12/26/19 09:46 Docusate Sodium (Colace) 100 mg DAILY ORAL 12/17/19 09:00 01/16/20 08:59 12/26/19 09:46 Folic Acid (Folate) 1 mg DAILY ORAL 12/17/19 09:00 01/16/20 08:59 12/26/19 09:47 Haloperidol Lactate (Haldol) 5 mg Q6H PRN IM Agitation 12/24/19 17:00 02/07/20 16:59 Magnesium Hydroxide (Mom) 30 ml DAILY ORAL 12/17/19 09:00 01/16/20 08:59 12/26/19 09:45 Multivitamins (Multivitamins) 1 tab DAILY ORAL 12/17/19 09:00 01/16/20 08:59 12/26/19 09:46 Risperidone (RisperDAL) 1 mg Q6H PRN ORAL Agitation 12/20/19 14:45 02/03/20 14:44 12/24/19 17:54 Sodium Chloride 1,000 ml @ 75 mls/hr [id number] IV 12/17/19 08:00 01/16/20 07:59 12/26/19 06:00 Brian Salmeron MD December 26, 2019 11:22
[2019-12-26 12:00] VITALS: BP 122/73
--- NOTE | 2019-12-26 14:08 | NUR ---
CASE MANAGEMENT:REVIEW SI;COVID-19 PNEUMONIA. FTT. 98.6 92 20 97/56 95% ON RA IS;IVF NS @ 75 ML/HR FOLATE PO QD CALCITRIOL PO QD ASA PO QD MED SURG STATUS DCP;FROM [facility]
--- NOTE | 2019-12-26 14:23 | NUR ---
DISCHARGE PLANNING PATIENT HAS BEEN REFERRED BACK TO [facility] P: [phone] F: [phone] FOLLOW UP CALL MADE. Jeremias/W TANIKA IN ADMISSIONS. DON WILL REVIEW INQUIRY AND CALL BACK WITH ANSWER. Addendum: 12/26/19 at 1547 by MIKE SALAZAR LVN LVN CALL BACK RECEIVED FROM TANIKA AT [facility] PATIENT ACCEPTED TO RETURN WITH BED ASSIGNMENT 20-A SKILLED DR JOEL INFORMED AND GAVE ORDER TO DC BACK TO SNF WITH HOME MEDS. NOTED AND CARRIED OUT. S AMBULANCE TRANSPORTATION SCHEDULED WITH [facility] @ EXT [id number] WITH ETA @ 1730 PM
[2019-12-26 16:00] VITALS: BP 129/76
--- NOTE | 2019-12-26 19:15 | NUR ---
NURSE NOTES: pt is discharged to [facility]. pt is alert and awake. respiration is even and unlabored. skin is intact. iv removed, pressure dressing applied. No acute distress noted on patient. reports given to color mixer staff. patient has not belongings at this time.
--- NOTE | 2019-12-27 00:02 | Psych Consult Progress Note ---
Psychiatry Progress Note Psychiatry Progress Note Allergies: Coded Allergies: No Known Allergies (Unverified , 08/26/18) Objective Data Height (Feet): 5 Height (Inches): 9.00 Weight (Pounds): 91 Assessment/Plan Problem List: (1) Metabolic encephalopathy Assessment & Plan: dementia ICD Codes: G93.41 - Metabolic encephalopathy SNOMED: [id number] Status: stable Assessment/Plan: Kelby Hoskins rn, MD December 27, 2019 00:02
--- NOTE | 2019-12-27 00:14 | Discharge Summary ---
DATE OF ADMISSION: 12/17/2019 DATE OF DISCHARGE: 12/26/2019 SUBJECTIVE: This is a 69-year-old male came with failure to thrive, COVID positive. The patient was treated with IV antibiotics and isolation. ID consult was obtained. The patient is clinically doing better. He is going to go back to residential. DISCHARGE DIAGNOSES: 1. COVID positive. 2. Failure to thrive. 3. Dehydration. 4. UTI. DIET: He is on mechanical soft diet. ACTIVITY: As tolerated. Sandeep Gonzales M.D. DR: Vee JOB#: [id number] CC:
== END 2019-12-26 19:00 | DRG 177 ==
LOC: EDBD 00:47 → EDUNIT# 00:47 → EMR 01:01 → EDBEDREQ 03:26 → 2E 03:32 → EDBEDREQ 03:41 → 4E 12-19 18:55
DX: U07.1 COVID-19 (principal); G93.41 Metabolic encephalopathy; J12.89 Other viral pneumonia; N39.0 Urinary tract infection, site not specified; R64 Cachexia; E86.0 Dehydration; E78.5 Hyperlipidemia, unspecified; F03.90 Unspecified dementia, unspecified severity, without behavioral disturbance, psychotic disturbance, mood disturbance, and anxiety; Z66 Do not resuscitate; D64.9 Anemia, unspecified; I10 Essential (primary) hypertension; Z86.73 Personal history of transient ischemic attack (TIA), and cerebral infarction without residual deficits
CPT/HCPCS: 36415; 71045; 80048; 80053; 80202; 81003; 82550; 82553; 83605; 83735; 84484; 85025; 87040; 87081; 87181; 87635; 93005; 96361; 96365; 96367; 99285; J7030

== ENCOUNTER 2020-01-22 15:22 | Inpatient (IN) | payer MEDICARE, MEDICAID ==
[~2020-01-22] VITALS: Ht 172.7 cm; Wt 44.5 kg
[~2020-01-22 15:22] MED LIST changes: +DOCUSATE SODIU100 MG ORAL; +FOLIC ACID1 MG ORAL; +NORVASC5 MG ORAL; +VITAMIN B-12500 MCG ORAL
[2020-01-22] MEDS ORDERED: FLOMAX0.4 MG ORAL (15:40)
[2020-01-22 16:00] VITALS: BP 120/57
[2020-01-22 16:13] LABS: HEMATOCRIT 20.7 % (42.0-52.0); MEAN CORPUSCULAR VOLUME 90 FL (80-99); PLATELET COUNT 228 K/UL (150-450); RED CELL DISTRIBUTION WIDTH 14.7 % (11.6-14.8); WHITE BLOOD COUNT 6.6 K/UL (4.8-10.8)
[2020-01-22 16:30] LABS: HEMOGLOBIN 6.7 G/DL (14.2-18.0)
[2020-01-22 17:04] LABS: ALANINE AMINOTRANSFERASE 27 U/L (12-78); ALBUMIN 3.7 G/DL (3.4-5.0); ALBUMIN/GLOBULIN RATIO 1.1 (1.0-2.7); ALKALINE PHOSPHATASE 67 U/L (46-116); ANION GAP 11 mmol/L (5-15); ASPARTATE AMINO TRANSFERASE 28 U/L (15-37); BILIRUBIN,TOTAL 0.2 MG/DL (0.2-1.0); BLOOD UREA NITROGEN 25 mg/dL (7-18); CARBON DIOXIDE 30 MMOL/L (21-32); CHLORIDE 98 MMOL/L (98-107); CKMB 3.7 NG/ML (0.0-3.6); CREATINE KINASE 304 U/L (26-308); CREATININE 1.1 MG/DL (0.55-1.30); POTASSIUM 4.3 MMOL/L (3.5-5.1); SODIUM 138 MMOL/L (136-145)
[2020-01-22 17:16] LABS: APPEARANCE,URINE TURBID; BILIRUBIN, URINE NEGATIVE (NEGATIVE); COLOR,URINE RED; GLUCOSE, URINE (UA) NEGATIVE (NEGATIVE); KETONES,URINE 1+ (NEGATIVE); LEUKOCYTE ESTERASE ,URINE NEGATIVE (NEGATIVE); NITRITE,URINE NEGATIVE (NEGATIVE); PH,URINE 7 (4.5-8.0); PROTEIN,URINE 4+ (NEGATIVE); UROBILINOGEN,URINE NORMAL MG/DL (0.0-1.0)
--- NOTE | 2020-01-22 17:44 | Emergency Room Report ---
History of Present Illness General Chief Complaint: General Complaint Source: Medical Record Present Illness HPI Patient is sent in for reports of hematuria ongoing for the past several days Patient himself has significant dementia cannot provide any history There was no reports of vomiting or diarrhea No reports of fevers There was no reports of cough patient has tested negative at the nursing facility for covid-19 Unknown regarding any trauma to the genital region unknown regarding last Mccollum catheter Allergies: Coded Allergies: No Known Allergies (Unverified , 08/26/18) COVID-19 Screening Contact w/high risk pt: No Recent Travel to affected area: No Experienced COVID-19 symptoms?: No COVID-19 Testing performed STEREOTYPE CASTER: No Patient History Past Medical History: see triage record Reviewed Nursing Documentation: PMH: Agreed; PSxH: Agreed Nursing Documentation-PMH Hx Cardiac Problems: Yes Hx Hypertension: Yes Hx COPD: Yes Hx Cancer: No Hx Gastrointestinal Problems: No Hx Cerebrovascular Accident: Yes - alzheimers, cva Hx Alzheimer's Disease: Yes Hx Weakness: Yes - muscle weakness Review of Systems All Other Systems: limited - Other than the ones mentioned in the history of present illness all others are reviewed however they do stay limited due to the patient's mental status Physical Exam Vital Signs Date Time Temp Pulse Resp B/P (MAP) Pulse Ox O2 Delivery O2 Flow Rate FiO2 01/22/20 15:23 97.5 95 16 113/53 (73) 97 Room Air 01/22/20 16:00 98 Sp02 EP Interpretation: reviewed, normal General Appearance: no apparent distress Head: normocephalic, atraumatic Eyes: bilateral eye PERRL, bilateral eye EOMI ENT: EOM grossly intact, dry mucus membranes Neck: supple, no meningismus Respiratory: lungs clear, no respiratory distress, no retraction Cardiovascular #1: regular rate, rhythm Gastrointestinal: non tender, soft Musculoskeletal: other - Patient does not follow commands moves both upper extremities without focal deficit Neurologic: responsive - To physical and verbal stimuli Skin: no rash Lymphatic: no adenopathy Medical Decision Making Diagnostic Impression: Primary Impression: Hematuria Additional Impression: Severe anemia ER Course Multiple differentials including but not limited to traumatic injury, UTI, hemorrhagic cystitis, renal cancer entertained patient has extensive blood work and imaging initiated Mccollum catheter reveals Dark red blood Patient's blood work is concerning for severe anemia CT imaging obtained Shows full bladder This was prior to the Mccollum catheter being placed Given the significant anemia patient has transfusion ordered and admitted for further care Labs Test 01/22/20 15:40 01/22/20 16:45 01/22/20 17:07 White Blood Count 6.6 K/UL (4.8-10.8) Red Blood Count 2.30 M/UL (4.70-6.10) Hemoglobin 6.7 G/DL (14.2-18.0) Hematocrit 20.7 % (42.0-52.0) Mean Corpuscular Volume 90 FL (80-99) Mean Corpuscular Hemoglobin 29.1 PG (27.0-31.0) Mean Corpuscular Hemoglobin Concent 32.2 G/DL (32.0-36.0) Red Cell Distribution Width 14.7 % (11.6-14.8) Platelet Count 228 K/UL (150-450) Mean Platelet Volume 7.4 FL (6.5-10.1) Neutrophils (%) (Auto) % (45.0-75.0) Lymphocytes (%) (Auto) % (20.0-45.0) Monocytes (%) (Auto) % (1.0-10.0) Eosinophils (%) (Auto) % (0.0-3.0) Basophils (%) (Auto) % (0.0-2.0) Differential Total Cells Counted 100 Neutrophils % (Manual) 75 % (45-75) Lymphocytes % (Manual) 17 % (20-45) Monocytes % (Manual) 7 % (1-10) Eosinophils % (Manual) 1 % (0-3) Basophils % (Manual) 0 % (0-2) Band Neutrophils 0 % (0-8) Platelet Estimate Adequate Platelet Morphology Normal Hypochromasia 3+ Anisocytosis 1+ Sodium Level 138 MMOL/L (136-145) Potassium Level 4.3 MMOL/L (3.5-5.1) Chloride Level 98 MMOL/L (98-107) Carbon Dioxide Level 30 MMOL/L (21-32) Anion Gap 11 mmol/L (5-15) Blood Urea Nitrogen 25 mg/dL (7-18) Creatinine 1.1 MG/DL (0.55-1.30) Estimat Glomerular Filtration Rate > 60 mL/min (>60) Glucose Level 103 MG/DL (74-106) Lactic Acid Level 2.10 mmol/L (0.4-2.0) 1.90 mmol/L (0.66-2.22) Calcium Level 6.0 MG/DL (8.5-10.1) Total Bilirubin 0.2 MG/DL (0.2-1.0) Aspartate Amino Transf (AST/SGOT) 28 U/L (15-37) Alanine Aminotransferase (ALT/SGPT) 27 U/L (12-78) Alkaline Phosphatase 67 U/L (46-116) Total Creatine Kinase 304 U/L (26-308) Creatine Kinase MB 3.7 NG/ML (0.0-3.6) Creatine Kinase MB Relative Index 1.2 Troponin I 0.000 ng/mL (0.000-0.056) Pro-B-Type Natriuretic Peptide 233 pg/mL (0-125) Total Protein 7.0 G/DL (6.4-8.2) Albumin 3.7 G/DL (3.4-5.0) Globulin 3.3 g/dL Albumin/Globulin Ratio 1.1 (1.0-2.7) Lipase 174 U/L (73-393) Urine Color Red Urine Appearance Turbid Urine pH 7 (4.5-8.0) Urine Specific [place] 1.010 (1.005-1.035) Urine Protein 4+ (NEGATIVE) Urine Glucose (UA) Negative (NEGATIVE) Urine Ketones 1+ (NEGATIVE) Urine Blood 5+ (NEGATIVE) Urine Nitrite Negative (NEGATIVE) Urine Bilirubin Negative (NEGATIVE) Urine Urobilinogen Normal MG/DL (0.0-1.0) Urine Leukocyte Esterase Negative (NEGATIVE) Urine RBC Tntc /HPF (0 - 0) Urine WBC 0-2 /HPF (0 - 0) Urine Squamous Epithelial Cells Occasional /LPF Urine Bacteria Few /HPF (NONE) Chest X-Ray Diagnostic Results Chest X-Ray Diagnostic Results : Chest X-Ray Ordered: Yes # of Views/Limited/Complete: 1 View Indication: Chest Pain EP Interpretation: Yes Interpretation: no consolidation, no effusion, no pneumothorax Impression: No acute disease Electronically Signed by: Eugenio Reddy, CT/MRI/US Diagnostic Results CT/MRI/US Diagnostic Results : Impression CT abdomen pelvisIMPRESSION: 1. Blood in the bladder. Could not exclude underlying inflammatory or neoplastic mass lesion. 2. Cholelithiasis. Last Vital Signs Date Time Temp Pulse Resp B/P (MAP) Pulse Ox O2 Delivery O2 Flow Rate FiO2 01/22/20 16:00 93 18 Room Air 98 01/22/20 16:00 97.5 120/57 98 Status: improved Disposition: ADMITTED INPATIENT Condition: Serious Referrals: Michael Gonzales MD (PCP) Eugenio Reddy DO Jan 22, 2020 17:44
[2020-01-22 17:53] VITALS: BP 127/62
--- NOTE | 2020-01-22 17:58 | Diagnostic Imaging Report ---
EXAM: CT Abdomen and Pelvis Without Intravenous Contrast CLINICAL HISTORY: BLD TECHNIQUE: Axial computed tomography images of the abdomen and pelvis without intravenous contrast. CTDI is 3.9 mGy and DLP is 188 mGy-cm. One or more of the following dose reduction techniques were used: automated exposure control, adjustment of the mA and/or kV according to patient size, use of iterative reconstruction technique. COMPARISON: No relevant prior studies available. FINDINGS: Limitations: Limited by motion and lack of contrast. Lung bases: Unremarkable. ABDOMEN: Liver: Unremarkable Gallbladder and bile ducts: Cholelithiasis. Pancreas: Unremarkable. Spleen: Unremarkable. Adrenals: Unremarkable. Kidneys and ureters: No renal calculi or obstructive changes. Stomach and bowel: No dany mural thickening. Nonobstructive bowel gas pattern. PELVIS: Appendix: No findings to suggest acute appendicitis. Bladder: Blood in the bladder. Reproductive: Unremarkable. ABDOMEN and PELVIS: Intraperitoneal space: Unremarkable. Bones/joints: No acute fracture. Soft tissues: Atrophic right psoas muscle and probably hypertrophy of the contralateral side. Vasculature: Unremarkable. No abdominal aortic aneurysm. Lymph nodes: No enlarged lymph nodes. IMPRESSION: 1. Blood in the bladder. Could not exclude underlying inflammatory or neoplastic mass lesion. 2. Cholelithiasis.
--- NOTE | 2020-01-22 18:51 | Diagnostic Imaging Report ---
INDICATION: Chest pain COMPARISON: 12/17/2019 FINDINGS: Single frontal view demonstrates a normal cardiomediastinal silhouette. The lungs are clear. No pleural effusions. The visualized osseous structures are within normal limits. IMPRESSION: No acute cardiopulmonary disease.
[2020-01-22 21:00] VITALS: BP 124/64
[2020-01-22 23:00] VITALS: BP 122/60
--- NOTE | 2020-01-22 23:45 | History and Physical Report ---
DATE OF ADMISSION: 01/22/2020 HISTORY OF PRESENT ILLNESS: This is a 69-year-old male who came [facility] the emergency room from [facility] where he has recurrent hematuria for last 2 weeks. Patient came to the emergency room. Patient came because family does not want [facility]. Patient was transferred here under my care. Patient currently looks pale, dry, and nonverbal. Occasionally opens his eyes. Hemoglobin was found 6.7. PAST MEDICAL HISTORY: Significant for CVA, hypertension, hyperlipidemia, depression, dementia. MEDICATIONS: See the list. ALLERGIES: NKA. FAMILY HISTORY: Noncontributory. SOCIAL HISTORY: Patient lives at [facility], mostly bedbound. REVIEW OF SYSTEMS: Cannot be obtained. PHYSICAL EXAMINATION: GENERAL: This is an elderly male who is currently nonverbal and occasionally opens his eyes. VITAL SIGNS: Blood pressure 110/70, pulse 84, respirations 18, no fever. SKIN: Poor skin turgor. HEENT: Eyes are open. NECK: Supple. CHEST: Bilateral decreased breath sounds. CARDIOVASCULAR: Regular rhythm. No gallop. No murmur. ABDOMEN: Soft. Positive bowel sounds. EXTREMITIES: No CCE. NEUROLOGICAL: Generalized weakness. LABORATORY DATA: As stated hemoglobin 6.7. White counts are normal. ASSESSMENT: 1. Hematuria. 2. UTI. 3. Dehydration. 4. Dementia. 5. CVA. 6. Severe malnutrition. PLAN: We will admit on telemetry bed. Type and cross. Transfuse 2 units. Consider Urology consult for the indwelling Mccollum catheter. Start Flomax. Continue current treatment. We will also add swallow eval and dietary consult. Sandeep Gonzales M.D. DR: RACHEL JOB#: [id number] CC:
[2020-01-23] VITALS (7 sets, daily range): BP systolic 96–132; BP diastolic 50–72
[2020-01-23] MEDS ORDERED: LORazepam 1mg tab ORAL PRN (00:30)
[2020-01-23] MEDS ORDERED: cefTRIAXone 1 GM in D5W 55 ML IVPB SCH (02:00)
[2020-01-23 05:51] LABS: BASOPHILS % (AUTO) 0.5 % (0.0-2.0); EOSINOPHILS % (AUTO) 0.2 % (0.0-3.0); HEMATOCRIT 27.5 % (42.0-52.0); HEMOGLOBIN 9.9 G/DL (14.2-18.0); LYMPHOCYTES % (AUTO) 13.5 % (20.0-45.0); MEAN CORPUSCULAR VOLUME 85 FL (80-99); MONOCYTES % (AUTO) 6.9 % (1.0-10.0); NEUTROPHILS % (AUTO) 78.8 % (45.0-75.0); PLATELET COUNT 179 K/UL (150-450); RED BLOOD COUNT 3.25 M/UL (4.70-6.10); RED CELL DISTRIBUTION WIDTH 12.2 % (11.6-14.8); WHITE BLOOD COUNT 6.9 K/UL (4.8-10.8)
[2020-01-23] MEDS ORDERED: Tubing IV Blood Pump IV ONE (16:44)
[2020-01-23] MEDS ORDERED: NS 275ml ONE (16:44)
[2020-01-23] MEDS: LORazepam 1mg tab ORAL PRN (20:20)
[2020-01-23] MEDS: Tamsulosin 0.4mg cap ORAL SCH (20:20)
[2020-01-23] MEDS ORDERED: Tamsulosin 0.4mg cap ORAL SCH (21:00)
--- NOTE | 2020-01-23 22:00 | Consultation ---
DATE OF CONSULTATION: 01/23/2020 CONSULTING PHYSICIAN: Solitario Ruiz MD. REFERRING PHYSICIAN: Sandeep Gonzales MD. REASON FOR CONSULTATION: Evaluation of hematuria. HISTORY OF PRESENT ILLNESS: This is a 69-year-old male. He is a resident of a retirement. He was admitted to the hospital because of severe anemia. Apparently, he has had intermittent gross hematuria for a number of months. Most of the history was obtained from the chart. PAST MEDICAL HISTORY: Significant for CVA, hypertension, hyperlipidemia, depression. PAST SURGICAL HISTORY: Unknown. MEDICATIONS: Current medication list was reviewed. Here in the hospital, he was on Rocephin, Flomax, Ativan. ALLERGIES: No known drug allergies. SOCIAL HISTORY: Unable to obtain. The patient is from the retirement. FAMILY HISTORY: Unable to obtain. REVIEW OF SYSTEMS: Unable to obtain. PHYSICAL EXAMINATION: GENERAL: An elderly male, cachectic, no acute distress. VITAL SIGNS: Temperature is 97.0, blood pressure is 106/61, pulse 79, respirations 20. HEENT: Normocephalic. NECK: Supple. ABDOMEN: Soft. GENITOURINARY: Mccollum catheter is in place, 16-Amharic. Urine is blood tinged. EXTREMITIES: No clubbing or cyanosis. LABORATORY DATA: UA on admission showed 4+ protein, too numerous to count rbc's, 0 to 2 wbc's, few bacteria. White count is 6.9, hemoglobin on admission was 6.7, after blood transfusion is 9.9, and platelets are 179. BUN is 24, creatinine 1.1. The patient had a CT scan of the abdomen and pelvis. There was mention of normal kidneys without stones or obstructive changes. There was mention of blood in the bladder, unable to rule out a mass. IMPRESSION: 1. Gross hematuria. 2. Urinary retention. 3. BPH. 4. Probable neurogenic bladder. 5. Proteinuria. PLAN AND DISCUSSION: Again, the patient did have gross hematuria at the time of my exam. His urine in the bag was very slightly blood tinged. I did personally hand irrigate Mccollum catheter. There was minimal clots if any and his urine cleared up completely without any evidence of any active bleeding whatsoever. At this time, he will be monitored with antibiotics, finasteride and we can probably remove his Mcocllum soon because the patient is agitated and he is going to pull it out and cause trauma. At some point electively he can have a cystoscopy to evaluate the bladder but again at this time, there is no active bleeding noted. Solitario Ruiz M.D. DR: Angela JOB#: [id number] CC:
--- NOTE | 2020-01-24 00:15 | Progress Note ---
DATE: 01/23/2020 SUBJECTIVE: This is an elderly 69-year-old male who [facility] where [facility] was with severe hematuria and bleeding from the penis. The patient is also agitated and dehydrated when he came. His hemoglobin was 6.9. The patient is currently more awake, alert, on the bed, looks comfortable. OBJECTIVE: VITAL SIGNS: Blood pressure 106/53, pulse 80s, no fever, and saturation 99%. HEENT: NAD. CHEST: Bilateral decreased breath sounds. CARDIOVASCULAR: Regular rhythm. No gallop. No murmur. ABDOMEN: Soft. Positive bowel sounds. EXTREMITIES: CCE. NEUROLOGICAL: Generalized weakness. GENITOURINARY: Deferred. LABORATORY DATA: White count 6.6, hemoglobin is 6.7, hematocrit 21, and platelets are 228. Chemistry panel, sodium 138, potassium 4.3, BUN 25, creatinine 1.1, lactic acid is 2.10. Troponins are 0.0. BNP was 339. ASSESSMENT AND PLAN: We will currently continue Flomax, sulfa drugs, and continue lorazepam. Consider Urology consult. Wait for cultures. The patient was transfused 2 units of blood last night. His hemoglobin currently is stable. Sandeep Gonzales M.D. DR: Vee JOB#: [id number] CC:
[2020-01-24] MEDS: cefTRIAXone 1 GM in D5W 55 ML IVPB SCH (01:18)
[2020-01-24 04:01] VITALS: BP 118/71
[2020-01-24 08:00] VITALS: BP 129/65
--- NOTE | 2020-01-24 09:33 | Urology Progress Note ---
Assessment/Plan Assessment/Plan: 1. Gross hematuria, improved. 2. Urinary retention. 3. BPH. 4. Probable neurogenic bladder. 5. Proteinuria. monitor clinically gross hematuria resolved brunner hand irrigated, no clots no active bleeding cont flomax and proscar cont abx as ordered f/u on blood cx pt high risk of pulling brunner out as such will dc brunner, reinsert PRN cysto later d/w nursing staff Subjective Allergies: Coded Allergies: No Known Allergies (Unverified , 08/26/18) Subjective all noted, confused Objective Last 24 Hour Vital Signs Date Time Temp Pulse Resp B/P (MAP) Pulse Ox O2 Delivery O2 Flow Rate FiO2 01/24/20 09:00 Room Air 01/24/20 08:00 97.4 79 18 129/65 (86) 99 01/24/20 04:01 97.0 89 24 118/71 (87) 99 01/23/20 20:55 Room Air 01/23/20 20:00 97.7 87 22 122/72 (89) 98 01/23/20 18:54 97.0 79 20 106/61 (76) 98 01/23/20 16:00 97.5 84 20 132/63 (86) 99 01/23/20 12:00 70 01/23/20 12:00 97.4 80 20 106/53 (70) 99 Intake and Output 01/23/20 01/24/20 19:00 07:00 Intake Total 324 ml 805 ml Output Total 700 ml 800 ml Balance -376 ml 5 ml Intake Oral 324 ml IV Total 805 ml Output Urine Total 700 ml 800 ml # Voids 1 # Bowel Movements 1 1 Microbiology Date/Time Source Procedure Growth Status 01/22/20 15:55 Blood Blood Culture - Preliminary NO GROWTH AFTER 24 HOURS Resulted 01/22/20 18:40 Nasal Nares MRSA Culture - Final NO METHICILLIN RESISTANT STAPH AUREUS... Complete 01/22/20 18:40 Rectum VRE Culture - Final NO VANCOMYCIN RESISTANT ENTEROCOCCUS ... Complete Current Medications Medications (Trade) Dose Ordered Sig/Luca Route PRN Reason Start Time Stop Time Status Last Admin Dose Admin Acetaminophen (Tylenol) 650 mg Q4H PRN ORAL Mild Pain (Pain Scale 1-3) 01/23/20 16:10 02/22/20 16:09 Ceftriaxone Sodium 1 gm/ Dextrose 55 ml @ 110 mls/hr Q24H IVPB 01/24/20 02:00 01/30/20 01:59 01/24/20 01:18 Finasteride (Proscar) 5 mg DAILY ORAL 01/23/20 20:30 04/22/20 20:29 01/24/20 08:48 Lorazepam (Ativan) 1 mg Q6H PRN ORAL For Anxiety 01/23/20 16:10 01/30/20 16:09 01/23/20 20:20 Sodium Chloride 1,000 ml @ 75 mls/hr [id number] IV 01/23/20 16:10 02/22/20 16:09 01/23/20 20:21 Tamsulosin HCl (Flomax) 0.4 mg BEDTIME ORAL 01/23/20 21:00 02/22/20 20:59 01/23/20 20:20 Height (Feet): 5 Height (Inches): 8.00 Weight (Pounds): 100 Objective exam stable brunner indwelling, urine is grossly yellow/emy Solitario Ruiz MD Jan 24, 2020 09:33
[2020-01-24] MEDS: LORazepam 1mg tab ORAL PRN (09:55)
[2020-01-24 12:00] VITALS: BP 113/58
[2020-01-24 16:00] VITALS: BP 113/62
[2020-01-24 20:14] VITALS: BP 111/48
[2020-01-24] MEDS: Tamsulosin 0.4mg cap ORAL SCH (20:28)
[2020-01-25] MEDS: cefTRIAXone 1 GM in D5W 55 ML IVPB SCH (01:36)
[2020-01-25 03:58] VITALS: BP 121/63
[2020-01-25 08:00] VITALS: BP 131/74
--- NOTE | 2020-01-25 09:13 | Urology Progress Note ---
Assessment/Plan Assessment/Plan: 1. Gross hematuria, improved. 2. Urinary retention. 3. BPH. 4. Probable neurogenic bladder. 5. Proteinuria. monitor clinically gross hematuria resolved brunner out and voiding no active bleeding cont flomax and proscar cont abx as ordered f/u on blood cx plan cysto, likely as inpt since outpt f/u is difficult d/w nursing staff d/w nurse case manager d/w pt's sister who is decision maker Subjective Allergies: Coded Allergies: No Known Allergies (Unverified , 08/26/18) Subjective all noted, confused, brunner removed yest, voiding/incontinent, urine reported grossly yellow/emy Objective Last 24 Hour Vital Signs Date Time Temp Pulse Resp B/P (MAP) Pulse Ox O2 Delivery O2 Flow Rate FiO2 01/25/20 08:00 97.3 76 18 131/74 (93) 97 01/25/20 03:58 97.7 83 22 121/63 (82) 94 01/24/20 20:22 Room Air 01/24/20 20:14 96.9 86 20 111/48 (69) 97 01/24/20 16:00 97.6 86 18 113/62 (79) 97 01/24/20 12:00 97.4 79 18 113/58 (76) 97 Intake and Output 01/24/20 01/25/20 19:00 07:00 Intake Total 2140 ml 1055 ml Balance 2140 ml 1055 ml Intake Oral 1440 ml IV Total 700 ml 955 ml Other 100 ml # Voids 4 2 Microbiology Date/Time Source Procedure Growth Status 01/22/20 15:55 Blood Blood Culture - Preliminary NO GROWTH AFTER 48 HOURS Resulted 01/22/20 18:40 Nasal Nares MRSA Culture - Final NO METHICILLIN RESISTANT STAPH AUREUS... Complete 01/22/20 18:40 Rectum - Final NO CARBAPENEM-RESISTANT ENTEROBACTERI... Complete Current Medications Medications (Trade) Dose Ordered Sig/Lcua Route PRN Reason Start Time Stop Time Status Last Admin Dose Admin Acetaminophen (Tylenol) 650 mg Q4H PRN ORAL Mild Pain (Pain Scale 1-3) 01/23/20 16:10 02/22/20 16:09 Ceftriaxone Sodium 1 gm/ Dextrose 55 ml @ 110 mls/hr Q24H IVPB 01/24/20 02:00 6/15/20 01:59 01/25/20 01:36 Finasteride (Proscar) 5 mg DAILY ORAL 01/23/20 20:30 04/22/20 20:29 01/24/20 08:48 Lorazepam (Ativan) 1 mg Q6H PRN ORAL For Anxiety 01/23/20 16:10 01/30/20 16:09 01/24/20 09:55 Sodium Chloride 1,000 ml @ 75 mls/hr [id number] IV 01/23/20 16:10 02/22/20 16:09 01/25/20 01:37 Tamsulosin HCl (Flomax) 0.4 mg BEDTIME ORAL 01/23/20 21:00 02/22/20 20:59 01/23/20 20:20 Height (Feet): 5 Height (Inches): 8.00 Weight (Pounds): 98 Objective exam stable Solitario Ruiz MD Jan 25, 2020 09:13
[2020-01-25 12:00] VITALS: BP 129/76
[2020-01-25 16:00] VITALS: BP 129/82
[2020-01-25 20:00] VITALS: BP 102/43
[2020-01-25] MEDS: Tamsulosin 0.4mg cap ORAL SCH (20:53)
[2020-01-26] VITALS (13 sets, daily range): BP systolic 106–167; BP diastolic 50–93
[2020-01-26] MEDS ORDERED: Haloperidol 5mg/ml Inj IM PRN
--- NOTE | 2020-01-26 00:15 | Progress Note ---
DATE: 01/25/2020 SUBJECTIVE: This is an elderly male, currently in bed, comfortable, screaming. His Mccollum catheter has clean urine. No hematuria. Hemoglobin is stable. Waiting for COVID test. OBJECTIVE: VITAL SIGNS: Blood pressure 129/76, pulse 78, temperature 98.6. HEENT: NAD. CHEST: Bilaterally clear. CARDIOVASCULAR: Regular rhythm. ABDOMEN: Soft. EXTREMITIES: No CCE. NEUROLOGICAL: No focal deficit. ASSESSMENT: 1. Hematuria. 2. Anemia. 3. UTI. 4. BPH. PLAN: 1. Continue ceftriaxone, finasteride. 2. Continue Flomax. 3. Continue Tylenol. 4. Waiting for COVID test. Sandeep Gonzalse M.D. DR: CONI JOB#: [id number] CC:
[2020-01-26] MEDS: cefTRIAXone 1 GM in D5W 55 ML IVPB SCH (01:53)
[2020-01-26] MEDS ORDERED: Iothalamate Meglumine 60% 30ML INJ ONE (06:22)
[2020-01-26] MEDS ORDERED: Midazolam 2mg/2ml Inj ONE (06:39)
[2020-01-26] MEDS ORDERED: fentaNYL 100 mcg/2 mL IV ONE (06:39)
[2020-01-26] MEDS ORDERED: Lidocaine 1% MPF 10mg/ml 5ml ONE (06:43)
[2020-01-26] MEDS ORDERED: cefOXitin 1gm Inj ONE (06:47)
[2020-01-26] MEDS ORDERED: Sterile Water Irrig 1000ml IRRIG ONE (07:00)
[2020-01-26] MEDS ORDERED: NS Irrig 1000ml ONE (07:00)
[2020-01-26] MEDS ORDERED: Sterile Water Irrig 2000ml IRRIG ONE (07:00)
--- NOTE | 2020-01-26 07:07 | Anethesia Preoperative Eval ---
Anesthesia Pre-op PMH/ROS General Date of Evaluation: Jan 26, 2020 Time of Evaluation: 07:02 Anesthesiologist: Michela ASA Score: ASA 3 Mallampati Score Class I : Soft palate, uvula, fauces, pillars visible Class II: Soft palate, uvula, fauces visible Class III: Soft palate, base of uvula visible Class IV: Only hard plate visible Mallampati Classification: Class III Surgeon: Joseph Diagnosis: Hematuria Surgical Procedure: Cysto Anesthesia History: none Family History: no anesthesia problems Allergies: Coded Allergies: No Known Allergies (Unverified , 08/26/18) Medications: see eMAR Patient NPO?: Yes Past Medical History Cardiovascular: Reports: HTN - stable; Denies: CAD, [place], valve dz, arrhythmia, other Pulmonary: Denies: asthma, COPD, [place], other Gastrointestinal/Genitourinary: Reports: GERD, CRI, other - recurrent hematuria ; Denies: ESRD Neurologic/Psychiatric: Reports: dementia, CVA, depression/anxiety Endocrine: Denies: DM, hypothyroidism, steroids, other HEENT: Denies: cataract (L), cataract (R), glaucoma, [place] (L), [place] (R), other Hematology/Immune: Reports: anemia - severe posthemorrhagic; Denies: DVT, bleeding disorder, other Musculoskeletal/Integumentary: Reports: other - contructed; Denies: OA, RA, DJD, DDD, edema Other: other - malnourished PMH Narrative: as above PSxH Narrative: see H&P Anesthesia Pre-op Phys. Exam Physician Exam Last Vital Signs Date Time Temp Pulse Resp B/P (MAP) Pulse Ox O2 Delivery O2 Flow Rate FiO2 01/26/20 04:20 97.2 66 20 133/72 (92) 99 01/25/20 21:30 Room Air 01/23/20 00:00 98 Constitutional: NAD Neurologic: other - unable to obtaine Cardiovascular: RRR Respiratory: CTA Gastrointestinal: S/NT/ND Airway Exam Mallampati Score: Class III MO: limited Neck: stiff ROM: limited Teeth: missing Dentures: no upper, no lower Anesthesia Pre-op A/P Labs see chart Risk Assessment & Plan Assessment: ASA 3 Plan: GA with LMA Pre-Antibiotics Drug: Cefoxitin 1gr. Given Within 1 Hr of Incision: Yes Time Given: 07:20 Alexsander Abernathy MD Jan 26, 2020 07:07
--- NOTE | 2020-01-26 07:10 | Urology Progress Note ---
Assessment/Plan Assessment/Plan: 1. Gross hematuria, improved. 2. Urinary retention. 3. BPH. 4. Probable neurogenic bladder. 5. Proteinuria. monitor clinically gross hematuria resolved brunner out and voiding no active bleeding cont flomax and proscar cont abx as ordered f/u on blood cx for cysto today since outpt f/u is difficult d/w nursing staff d/w trimming caser d/w pt's sister who is decision maker, consent obtained has been NPO Subjective Allergies: Coded Allergies: No Known Allergies (Unverified , 08/26/18) Subjective all noted, for cysto today Objective Last 24 Hour Vital Signs Date Time Temp Pulse Resp B/P (MAP) Pulse Ox O2 Delivery O2 Flow Rate FiO2 01/26/20 04:20 97.2 66 20 133/72 (92) 99 01/26/20 00:00 97.7 69 20 106/56 (73) 98 01/25/20 21:30 Room Air 01/25/20 20:00 98.1 89 24 102/43 (62) 97 01/25/20 16:00 97.8 88 17 129/82 (98) 97 01/25/20 12:00 98.6 79 18 129/76 (93) 98 01/25/20 09:00 Room Air 01/25/20 08:00 97.3 76 18 131/74 (93) 97 Intake and Output 01/25/20 01/26/20 19:00 07:00 Intake Total 675 ml 880 ml Output Total 700 ml Balance 675 ml 180 ml IV Total 75 ml 880 ml Other 600 ml Output Urine Total 700 ml Microbiology Date/Time Source Procedure Growth Status 01/22/20 15:55 Blood Blood Culture - Preliminary NO GROWTH AFTER 72 HOURS Resulted 01/25/20 14:43 Nasopharynx SARS-CoV-2 RdRp Gene Assay - Final Complete 01/22/20 18:40 Rectum - Final NO CARBAPENEM-RESISTANT ENTEROBACTERI... Complete Current Medications Medications (Trade) Dose Ordered Sig/Luca Route PRN Reason Start Time Stop Time Status Last Admin Dose Admin Acetaminophen (Tylenol) 650 mg Q4H PRN ORAL Mild Pain (Pain Scale 1-3) 01/23/20 16:10 02/22/20 16:09 Ceftriaxone Sodium 1 gm/ Dextrose 55 ml @ 110 mls/hr Q24H IVPB 01/24/20 02:00 01/30/20 01:59 01/26/20 01:53 Escitalopram Oxalate (Lexapro) 10 mg DAILY ORAL 01/26/20 09:00 02/25/20 08:59 Finasteride (Proscar) 5 mg DAILY ORAL 01/23/20 20:30 04/22/20 20:29 01/25/20 10:05 Haloperidol Lactate (Haldol) 5 mg Q6H PRN IM Agitation 01/26/20 00:00 03/11/20 00:00 Hydromorphone HCl (Dilaudid) 0.5 mg Q5M PRN IVP Severe Pain (Pain Scale 7-10) 01/26/20 07:15 UNV Lorazepam (Ativan) 1 mg Q6H PRN ORAL For Anxiety 01/23/20 16:10 01/30/20 16:09 01/24/20 09:55 Midazolam HCl (Versed 2mg/2ml vial) 1 mg Q15M PRN IVP For Anxiety 01/26/20 07:15 UNV Ondansetron HCl (Zofran) 4 mg Q1H PRN IVP Nausea & Vomiting 01/26/20 07:15 UNV Sodium Chloride 1,000 ml @ 10 mls/hr Q24H IVLG 01/26/20 07:07 01/26/20 09:06 UNV Sodium Chloride 1,000 ml @ 75 mls/hr [id number] IV 01/23/20 16:10 02/22/20 16:09 01/25/20 20:58 Tamsulosin HCl (Flomax) 0.4 mg BEDTIME ORAL 01/23/20 21:00 02/22/20 20:59 01/23/20 20:20 Height (Feet): 5 Height (Inches): 8.00 Weight (Pounds): 98 Objective exam stable Solitario Ruiz MD Jan 26, 2020 07:10
--- NOTE | 2020-01-26 07:11 | Pre-Procedure Note/Attestation ---
Pre-Procedure Note/Attestation Complete Prior to Procedure Planned Procedure: bilateral Procedure Narrative: cysto, RPG, poss bx, fulguration Indications for Procedure Pre-Operative Diagnosis: gross hematuria hx Attestation I attest that I discussed the nature of the procedure; its benefits; risks and complications; and alternatives (and the risks and benefits of such alternatives ), prior to the procedure, with the patient (or the patient's legal lifeline representatives). I attest that, if there was a reasonable possibility of needing a blood transfusion, the patient (or the patient's legal lifeline representatives) was given the [facility] standardized written summary, pursuant to the Sidney Nirmal Blood Safety Act ([place] Health and Safety Code # 1645, as amended). I attest that I re-evaluated the patient just prior to the surgery and that there has been no change in the patient's H&P, except as documented below: Solitario Ruiz MD Jan 26, 2020 07:11
[2020-01-26] MEDS ORDERED: Hydromorphone 0.5mg/0.5ml inj IVP PRN (07:15)
[2020-01-26] MEDS ORDERED: Midazolam 2mg/2ml Inj IVP PRN (07:15)
--- NOTE | 2020-01-26 08:12 | Brief Operative Note ---
Immediate Post Operative Note Operative Note Pre-op Diagnosis: gross hematuria hx Procedure: cysto, bilat RPG, bladder biopsy, extensive fulguration of bladder and prostate Post-op Diagnosis: same as pre-op plus - likely hemorrhagic cystitis Surgeon: tod Anesthesiologist: jason Anesthesia: general Specimen: yes - bladder bx Complications: none Condition: stable Fluids: sterile water Estimated Blood Loss: minimal Implant(s) used?: No Solitario Ruiz MD Jan 26, 2020 08:12
--- NOTE | 2020-01-26 08:15 | Immediate Post-Op Evaluation ---
Immediate Post-Op Evalulation Immediate Post-Op Evalulation Procedure: Cysto, retrograde pyelogram, coagulatiion of prostate, bladder Bx. Date of Evaluation: Jan 26, 2020 Time of Evaluation: 08:14 IV Fluids: 300 Blood Products: none Estimated Blood Loss: min Urinary Output: n/a Blood Pressure Systolic: 148 Blood Pressure Diastolic: 76 Pulse Rate: 68 Respiratory Rate: 16 O2 Sat by Pulse Oximetry: 99 Temperature (Fahrenheit): 97.6 Pain Score (1-10): 1 Nausea: No Vomiting: No Complications none Patient Status: reacts, patent, none Hydration Status: adequate Alexsander Abernathy MD Jan 26, 2020 08:15
--- NOTE | 2020-01-26 10:30 | Consultation ---
DATE OF CONSULTATION: 01/25/2020 CONSULTING PHYSICIAN: Kelby Flores M.D. HISTORY OF PRESENT ILLNESS: The patient is a 69-year-old male with a history of dementia, CVA, hypertension, hyperlipidemia, and depression, who has been admitted to the hospital for recurrent hematuria. The patient was screaming and yelling today, severely agitated. The patient was in bilateral soft restraints and was unable to be engaged during the evaluation, is having poor memory. PAST PSYCHIATRIC HISTORY: Dementia and depression. PAST MEDICAL HISTORY: Significant for hematuria and anemia. ALLERGIES: No known drug allergies. SUBSTANCE ABUSE HISTORY: No known history of illicit drug use or alcohol. MENTAL STATUS EXAMINATION: The patient is alert, disoriented. Mood is agitated. Affect is flat. Thought process, there is a paucity of thought content. Thought content, no suicidal or homicidal ideation. Cognition is impaired. Insight and judgment is impaired. ASSESSMENT: [place] I Dementia with behavior disturbance. [place] II Deferred. [place] III As above. [place] IV Low. [place] V 20. PLAN: 1. We will start the patient on Lexapro 10 mg in the morning. 2. Haldol p.r.n. 3. We will continue to follow and readjust the medications. Kelby Flores M.D. DR: LUCAS JOB#: [id number] CC:
--- NOTE | 2020-01-26 12:57 | Diagnostic Imaging Report ---
INDICATION: Pain, intraoperative TECHNIQUE: Intraoperative imaging Fluoroscopy time: 39.4 seconds Total dose: 0.79815 mGym2 Total number of images: 8 COMPARISON: Reference made to 01/22/2020 CT abdomen pelvis FINDINGS: Intraoperative images document opacification of both ureters, which are normal in caliber, as well as the renal collecting systems. IMPRESSION: Intraoperative imaging, as described
[2020-01-26] MEDS: Tamsulosin 0.4mg cap ORAL SCH (21:40)
--- NOTE | 2020-01-26 22:30 | Progress Note ---
DATE: 01/26/2020 SUBJECTIVE: This is 69 years old male who came to the emergency room for hematuria and anemia. The patient underwent cystoscopy this morning and Dr. Ruiz put a Mccollum catheter, irrigating, and the patient has had some blood, but he is doing fine. He is confused. PHYSICAL EXAMINATION: GENERAL: The patient is alert and oriented x2. VITAL SIGNS: Stable. CHEST: Bilaterally clear. CARDIOVASCULAR: Regular rhythm. ABDOMEN: Soft. EXTREMITIES: CCE. NEUROLOGICAL: Generalized weakness. ASSESSMENT: 1. Hematuria. 2. Dementia. 3. Depression. 4. UTI. PLAN: 1. Continue IV antibiotics. 2. Continue current treatment. 3. Continue Mccollum catheter discussed with Dr. Ruiz. Sandeep Gonzales M.D. DR: Reed JOB#: [id number] CC:
--- NOTE | 2020-01-26 23:39 | Psych Consult Progress Note ---
Psychiatry Progress Note Psychiatry Progress Note Medications Current Medications Medications (Trade) Dose Ordered Sig/Luca Route PRN Reason Start Time Stop Time Status Last Admin Dose Admin Acetaminophen (Tylenol) 650 mg Q4H PRN ORAL Mild Pain (Pain Scale 1-3) 01/23/20 16:10 02/22/20 16:09 01/26/20 21:40 Ceftriaxone Sodium 1 gm/ Dextrose 55 ml @ 110 mls/hr Q24H IVPB 01/24/20 02:00 01/30/20 01:59 01/26/20 01:53 Escitalopram Oxalate (Lexapro) 10 mg DAILY ORAL 01/26/20 09:00 02/25/20 08:59 01/26/20 09:58 Finasteride (Proscar) 5 mg DAILY ORAL 01/23/20 20:30 04/22/20 20:29 01/26/20 09:58 Haloperidol Lactate (Haldol) 5 mg Q6H PRN IM Agitation 01/26/20 00:00 03/11/20 00:00 Lorazepam (Ativan) 1 mg Q6H PRN ORAL For Anxiety 01/23/20 16:10 01/30/20 16:09 01/24/20 09:55 Sodium Chloride 1,000 ml @ 75 mls/hr [id number] IV 01/23/20 16:10 02/22/20 16:09 01/26/20 23:15 Tamsulosin HCl (Flomax) 0.4 mg BEDTIME ORAL 01/23/20 21:00 02/22/20 20:59 01/26/20 21:40 Neurological/Psychiatric: Reports: anxiety, depressed, emotional problems Allergies: Coded Allergies: No Known Allergies (Unverified , 08/26/18) Objective Data Height (Feet): 5 Height (Inches): 8.00 Weight (Pounds): 98 Additional Comments: alert, disoriented. Mood is agitated. Affect is flat. Thought process, there is a paucity of thought content. Thought content, no suicidal or homicidal ideation. Cognition is impaired. Insight and judgment is impaired. Assessment/Plan Assessment/Plan: ASSESSMENT: [place] I Dementia with behavior disturbance. [place] II Deferred. [place] III As above. [place] IV Low. [place] V 20. PLAN: 1. We will start the patient on Lexapro 10 mg in the morning. 2. Haldol p.r.n. 3. We will continue to follow and readjust the medications. Kelby Flores MD Jan 26, 2020 23:39
[2020-01-27] VITALS: BP 121/85
--- NOTE | 2020-01-27 00:45 | Operative Note - Dictated ---
DATE OF OPERATION: 01/26/2020 PREOPERATIVE DIAGNOSIS: History of gross hematuria. POSTOPERATIVE DIAGNOSIS: History of gross hematuria. PROCEDURE PERFORMED: Cystoscopy with bilateral retrograde pyelogram and extensive fulguration of bladder, prostate, and bladder biopsy. OPERATING SURGEON: Solitario Ruiz MD. ANESTHESIOLOGIST: Alexsander Abernathy MD. ANESTHESIA: General. INDICATION FOR PROCEDURE: This is a 69-year-old male who is a resident of a nursing home facility. He was admitted to the hospital because of anemia and gross hematuria. Apparently, he has had intermittent gross hematuria for a number of months. He had a CT scan which showed blood clots in the bladder. No significant upper tract pathology. Mccollum catheter was placed at the time of admission. It was hand irrigated. His urine did clear. Cystoscopy was recommended for further evaluation and because of the fact that the patient has dementia and agitation, it was decided to do the procedure while he was here at the hospital because outpatient followup may not be feasible. As such, he was scheduled for the above procedure. The patient's sister was the decision maker and I did talk to her about the procedure and possible risks and consent was obtained. No guarantees given or implied. FINDINGS: The patient had mild prostatic obstruction. He did have a friable prostatic mucosa. He did have mucosal changes of the bladder neck and distal bladder, possibly secondary to cystitis. I did not see any obvious bladder tumors. Bladder biopsy was taken as well as extensive fulguration, bilateral retrograde pyelogram were also normal. PROCEDURE IN DETAIL: Informed consent was obtained from the patient's sister. The patient was then brought to the operating room and then placed in supine position. After successful general anesthesia was induced, the patient was then placed in a modified dorsal lithotomy position. Genitalia was then prepped and draped in usual sterile fashion. The patient had been on preoperative IV antibiotics before. A time-out was performed. The patient was noted to have significant meatal stenosis, which was dilated with sounds. Cystoscopy was then performed. The urethra showed some boo narrowing. The prostate was mildly obstructed, however, was very friable with easily bleeding vessels. The bladder was inspected carefully. I do not see any obvious bladder tumors. He did have some diffuse erythematous especially mucosal changes of the bladder neck. Again this could be potentially some form of cystitis; however, biopsy was taken to rule out malignancy. Biopsy site was extensively fulgurated in the bladder neck and bladder mucosa as well as prostatic fossa. Good hemostasis was obtained. At this point, retrograde pyelogram was done. The right ureteral orifice was an open ended catheter. Contrast was injected. Normal upper tracts was reviewed on the left side. The scope was removed. A 22-[place]i Mccollum catheter was placed. It was irrigated. Procedure was satisfactory. The patient was awakened and was taken to the recovery in stable condition. Blood loss is minimal. No complications. Solitario Ruiz M.D. DR: Angela JOB#: [id number] CC: Sandeep Gonzales M.D.; Fax#: [phone]
[2020-01-27] MEDS: cefTRIAXone 1 GM in D5W 55 ML IVPB SCH (01:09)
[2020-01-27 04:00] VITALS: BP 109/60
[2020-01-27 07:23] LABS: BASOPHILS % (AUTO) 0.5 % (0.0-2.0); EOSINOPHILS % (AUTO) 2.7 % (0.0-3.0); HEMATOCRIT 29.9 % (42.0-52.0); HEMOGLOBIN 9.8 G/DL (14.2-18.0); LYMPHOCYTES % (AUTO) 17.1 % (20.0-45.0); MEAN CORPUSCULAR VOLUME 93 FL (80-99); MONOCYTES % (AUTO) 9.7 % (1.0-10.0); NEUTROPHILS % (AUTO) 70.1 % (45.0-75.0); PLATELET COUNT 216 K/UL (150-450); RED BLOOD COUNT 3.21 M/UL (4.70-6.10); RED CELL DISTRIBUTION WIDTH 13.1 % (11.6-14.8)
[2020-01-27 07:31] LABS: ANION GAP 9 mmol/L (5-15); BLOOD UREA NITROGEN 12 mg/dL (7-18); CARBON DIOXIDE 30 MMOL/L (21-32); CHLORIDE 101 MMOL/L (98-107); CREATININE 0.9 MG/DL (0.55-1.30); SODIUM 140 MMOL/L (136-145)
[2020-01-27 07:49] LABS: CALCIUM < 5.0 MG/DL (8.5-10.1)
[2020-01-27 08:00] VITALS: BP 111/63
--- NOTE | 2020-01-27 08:29 | 48 Hour Post Anesthesia Eval ---
Post Anesthesia Evaluation Procedure: Cysto, retrograde pyelogram, coagulatiion of prostate, bladder Bx. Date of Evaluation: Jan 27, 2020 Time of Evaluation: 08:28 Blood Pressure Systolic: 112 0: 74 Pulse Rate: 68 Respiratory Rate: 20 Temperature (Fahrenheit): 97.6 O2 Sat by Pulse Oximetry: 98 Airway: patent Nausea: No Vomiting: No Pain Intensity: 2 Hydration Status: adequate Cardiopulmonary Status: stable Mental Status/LOC: patient returned to baseline Follow-up Care/Observations: n/a Post-Anesthesia Complications: none Follow-up care needed: N/A Alexsander Abernathy MD Jan 27, 2020 08:29
--- NOTE | 2020-01-27 09:30 | Urology Progress Note ---
Assessment/Plan Assessment/Plan: 1. Gross hematuria, improved. 2. Urinary retention. 3. BPH. 4. Probable neurogenic bladder. 5. Proteinuria. 6. POD #1, cysto monitor clinically gross hematuria resolved brunner indwelling hand irrigated, no major clots, clears no active bleeding cont flomax and proscar cont abx as ordered f/u on blood cx dc brunner DC planning back to SNF d/w nursing staff d/w Dr. Gonzales Subjective Allergies: Coded Allergies: No Known Allergies (Unverified , 08/26/18) Subjective all noted, looks comfortable Objective Last 24 Hour Vital Signs Date Time Temp Pulse Resp B/P (MAP) Pulse Ox O2 Delivery O2 Flow Rate FiO2 01/27/20 08:29 68 20 98 01/27/20 08:00 97.7 70 18 111/63 (79) 99 01/27/20 04:00 97.5 67 18 109/60 (76) 99 01/27/20 00:00 97.1 77 18 121/85 (97) 98 01/26/20 22:10 97.8 01/26/20 21:00 Room Air 01/26/20 20:00 97.8 84 18 115/93 (100) 98 01/26/20 16:00 97.9 71 18 122/68 (86) 98 01/26/20 12:00 97.5 66 18 113/63 (80) 99 Intake and Output 01/26/20 01/27/20 19:00 07:00 Intake Total 1700 ml 1200 ml Output Total 975 ml 1900 ml Balance 725 ml -700 ml IV Total 1150 ml Other 550 ml 1200 ml Output Urine Total 925 ml 1900 ml Estimated Blood Loss 50 ml # Voids 1 Microbiology Date/Time Source Procedure Growth Status 01/22/20 15:55 Blood Blood Culture - Preliminary NO GROWTH AFTER 4 DAYS Resulted 01/25/20 14:43 Nasopharynx SARS-CoV-2 RdRp Gene Assay - Final Complete 01/22/20 18:40 Rectum - Final NO CARBAPENEM-RESISTANT ENTEROBACTERI... Complete Current Medications Medications (Trade) Dose Ordered Sig/Luca Route PRN Reason Start Time Stop Time Status Last Admin Dose Admin Acetaminophen (Tylenol) 650 mg Q4H PRN ORAL Mild Pain (Pain Scale 1-3) 01/23/20 16:10 02/22/20 16:09 01/26/20 21:40 Ceftriaxone Sodium 1 gm/ Dextrose 55 ml @ 110 mls/hr Q24H IVPB 01/24/20 02:00 01/30/20 01:59 01/27/20 01:09 Escitalopram Oxalate (Lexapro) 10 mg DAILY ORAL 01/26/20 09:00 02/25/20 08:59 01/27/20 08:49 Finasteride (Proscar) 5 mg DAILY ORAL 01/23/20 20:30 04/22/20 20:29 01/27/20 08:49 Haloperidol Lactate (Haldol) 5 mg Q6H PRN IM Agitation 01/26/20 00:00 03/11/20 00:00 Lorazepam (Ativan) 1 mg Q6H PRN ORAL For Anxiety 01/23/20 16:10 01/30/20 16:09 01/24/20 09:55 Sodium Chloride 1,000 ml @ 75 mls/hr [id number] IV 01/23/20 16:10 02/22/20 16:09 01/26/20 23:15 Tamsulosin HCl (Flomax) 0.4 mg BEDTIME ORAL 01/23/20 21:00 02/22/20 20:59 01/26/20 21:40 Laboratory Tests 01/27/20 06:00: White Blood Count 7.0, Red Blood Count 3.21L, Hemoglobin 9.8L, Hematocrit 29.9L , Mean Corpuscular Volume 93, Mean Corpuscular Hemoglobin 30.6, Mean Corpuscular Hemoglobin Concent 32.9, Red Cell Distribution Width 13.1, Platelet Count 216, Mean Platelet Volume 6.8, Neutrophils (%) (Auto) 70.1, Lymphocytes (% ) (Auto) 17.1L, Monocytes (%) (Auto) 9.7, Eosinophils (%) (Auto) 2.7, Basophils (%) (Auto) 0.5, Sodium Level 140, Potassium Level 4.0, Chloride Level 101, Carbon Dioxide Level 30, Anion Gap 9, Blood Urea Nitrogen 12, Creatinine 0.9, Estimat Glomerular Filtration Rate > 60, Glucose Level 82, Calcium Level < 5.0*L Height (Feet): 5 Height (Inches): 8.00 Weight (Pounds): 98 Objective exam stable brunner indwelling, urine yellow/emy, occ small clots Solitario Ruiz MD Jan 27, 2020 09:30
[2020-01-27 12:00] VITALS: BP 125/65
--- NOTE | 2020-01-28 00:13 | Psych Consult Progress Note ---
Psychiatry Progress Note Psychiatry Progress Note Subjective 01/27/20 Allergies: Coded Allergies: No Known Allergies (Unverified , 08/26/18) Objective Data Height (Feet): 5 Height (Inches): 8.00 Weight (Pounds): 98 Additional Comments: alert, disoriented. Mood is agitated. Affect is flat. Thought process, there is a paucity of thought content. Thought content, no suicidal or homicidal ideation. Cognition is impaired. Insight and judgment is impaired. Assessment/Plan Assessment/Plan Assessment/Plan: ASSESSMENT: [place] I Dementia with behavior disturbance. PLAN: 1. Lexapro 10 mg in the morning. 2. Haldol p.r.n. 3. We will continue to follow and readjust the medications. Assessment/Plan Assessment/Plan: ASSESSMENT: [place] I Dementia with behavior disturbance. [place] II Deferred. [place] III As above. [place] IV Low. [place] V 20. PLAN: 1. We will start the patient on Lexapro 10 mg in the morning. 2. Haldol p.r.n. 3. We will continue to follow and readjust the medications. Kelby Flores MD Jan 28, 2020 00:13
--- NOTE | 2020-01-30 00:38 | Discharge Summary ---
Discharge Summary Discharge Summary _ DATE OF ADMISSION: 01/22/2020 DATE OF DISCHARGE: 01/27/2020 DISCHARGED BY: Dr. Sandeep Gonzales CONSULTANTS: Dr. Kelby Ruiz BRIEF HOSPITAL COURSE: Patient is a 69-year-old male, who came to the emergency room from intermediate where he had recurrent hematuria for the last 2 weeks. Patient family does not want [facility]. Patient was then transferred to [facility]. Upon evaluation at the ED vital signs were stable. Mccollum catheter showed dark red blood. Blood work showed anemia with hemoglobin of 6.7 and hematocrit 20.7. Platelet count 228. There was no leukocytosis. Electrolytes were normal. BUN was elevated to 25 and creatinine 1.1. Lactic acid was elevated to 2.1. Urinalysis revealed 5+ blood, +1 ketone, plus for protein, negative leukocyte esterase, too numerous to count RBC. CT of the abdomen and pelvis without contrast showed blood in the bladder. Patient's blood work was concerning for anemia. Patient was then admitted for evaluation of hematuria. He was given blood transfusion. Urologist was consulted. He was continued on Flomax and Proscar. Patient was also agitated. He was given lorazepam. He was started empirically on ceftriaxone. Blood count improved to hemoglobin 9 post 2 unit packed RBC blood transfusion. Gross hematuria resolved. Mccollum was hand irrigated and there were no clots. There was no active bleeding. Patient is high risk of pulling Mccollum catheter out. Mccollum catheter was then discontinued, plan to reinsert PRN. Patient was noted to be voiding freely. Patient will eventually need cystoscopy as inpatient as outpatient follow-up would be difficult. On 01/26/2020, he underwent cystoscopy with bladder biopsy and extensive fulguration of bladder and prostate. The bladder had diffuse erythematous mucosal changes in the bladder neck; potentially some form of cystitis. Biopsy was sent. Patient tolerated procedure well and procedure was uneventful. Psychiatrist was also consulted. Patient was severely agitated. He was diagnosed with dementia with behavioral disturbance. He was started on Lexapro. He was given Haldol as needed. Blood culture did not isolate any growth. SARS-CoV-2 rapid gene assay was negative. Patient's hematuria resolved. Patient was voiding freely with no active bleeding. He was cleared for discharge back to intermediate. FINAL DIAGNOSES: Hematuria, resolved Status post cystoscopy Dementia with behavioral disturbance BPH Urinary retention Probable neurogenic bladder Proteinuria DISPOSITION: DC back to SNF. DISCHARGE MEDICATIONS: Refer to Discharge Medication List. I have been assigned to complete a discharge summary on this account, I was not involved with the patient's management.--KAYLEY Camacho Jacqueline Robles NP Jan 30, 2020 00:38
== END 2020-01-27 13:31 | DRG 665 ==
LOC: EDBD 15:22 → EMR 16:04 → 2E 17:20 → EDBEDREQ 22:30 → 4E 01-23 18:54
PROC: 30233N1 Transfusion of Nonautologous Red Blood Cells into Peripheral Vein, Percutaneous Approach (ICD-10-PCS; principal; 2020-01-22)
PROC: 0T5B8ZZ Destruction of Bladder, Via Natural or Artificial Opening Endoscopic (ICD-10-PCS; 2020-01-26)
PROC: 0V508ZZ Destruction of Prostate, Via Natural or Artificial Opening Endoscopic (ICD-10-PCS; 2020-01-26)
PROC: BT14ZZZ Fluoroscopy of Kidneys, Ureters and Bladder (ICD-10-PCS; 2020-01-26)
PROC: 0TBB8ZX Excision of Bladder, Via Natural or Artificial Opening Endoscopic, Diagnostic (ICD-10-PCS; 2020-01-26)
DX: N30.91 Cystitis, unspecified with hematuria (principal); E43 Unspecified severe protein-calorie malnutrition; Z68.1 Body mass index [BMI] 19.9 or less, adult; F03.91 Unspecified dementia, unspecified severity, with behavioral disturbance; N31.9 Neuromuscular dysfunction of bladder, unspecified; N40.1 Benign prostatic hyperplasia with lower urinary tract symptoms; R33.8 Other retention of urine; E86.0 Dehydration; Z86.73 Personal history of transient ischemic attack (TIA), and cerebral infarction without residual deficits; E78.5 Hyperlipidemia, unspecified; R31.0 Gross hematuria; R80.9 Proteinuria, unspecified; Z66 Do not resuscitate
CPT/HCPCS: 36415; 71045; 74176; 74420; 76000; 80048; 80053; 81003; 82550; 82553; 83605; 83690; 83880; 84484; 85007; 85025; 86850; 86900; 86901; 86920; 87040; 87081; 93005; 94003; 94150; 99285; J2250; J7030